=== PATIENT | male | born 1950 | race Two or more races ===

== ENCOUNTER 2022-01-05 17:51 | Inpatient (IN) | payer MEDICARE, OTHER ==
[~2022-01-05] VITALS: Ht 177.8 cm; Wt 81.2 kg
--- NOTE | 2022-01-05 18:15 | NUR ---
[id number], from home, c/o R shoulder pain s/p slipped and fall in the bathroom, possible dislocation 05/06 ps. PLACED ON BED, AAOX4.
--- NOTE | 2022-01-05 18:20 | NUR ---
CAFE COOK. AT BED SIDE
--- NOTE | 2022-01-05 18:35 | NUR ---
X-RAY TECH AT BED SIDE
--- NOTE | 2022-01-05 18:45 | NUR ---
SWAB FOR COVID19 SENT TO LAB
[2022-01-05 19:16] LABS: ALANINE AMINOTRANSFERASE 13 U/L (12-78); ALBUMIN 3.4 g/dL (3.4-5.0); ALKALINE PHOSPHATASE 58 U/L (46-116); ASPARTATE AMINOTRANSFERASE 25 U/L (15-37); BILIRUBIN,DIRECT 0.2 mg/dL (0.0-0.2); BILIRUBIN,TOTAL 0.6 mg/dL (0.2-1.0); CARBON DIOXIDE 28 mmol/L (21-32); CHLORIDE 95 mmol/L (98-107); CREATININE 5.4 mg/dL (0.6-1.3); GLUCOSE 177 mg/dL (74-106); POTASSIUM 3.9 mmol/L (3.5-5.1); SODIUM SERUM 134 mmol/L (136-145); TOTAL PROTEIN, SERUM 7.9 g/dL (6.4-8.2); UREA NITROGEN, BLOOD 54 mg/dL (7-18)
[2022-01-05 20:13] LABS: BASOPHILS # (AUTO) 0.1 K/uL (0.0-0.2); BASOPHILS % (AUTO) 0.4 % (0.0-2.0); EOSINOPHILS % (AUTO) 0.1 % (0.0-6.0); HEMATOCRIT 24 % (39-51); HEMOGLOBIN 8.1 g/dL (13.5-17.5); LYMPHOCYTES # (AUTO) 0.5 K/uL (0.8-4.8); LYMPHOCYTES % (AUTO) 2.4 % (20.0-44.0); MEAN CORPUSCULAR HGB CONC 33 g/dl (31.0-36.0); MEAN CORPUSCULAR VOLUME 92 fL (80-96); MONOCYTES # (AUTO) 6.7 K/uL (0.1-1.30); MONOCYTES % (AUTO) 30.4 % (2.0-12.0); NEUTROPHILS # (AUTO) 14.6 K/uL (1.8-8.9); NEUTROPHILS % (AUTO) 66.7 % (43.0-81.0); PLATELET COUNT (AUTO) 121 K/uL (150-450); RED BLOOD CELL COUNT(AUTO) 2.64 MIL/uL (4.5-6.0)
--- NOTE | 2022-01-05 20:25 | NUR ---
DR PALOMO BARLOW PER DR AGUIRRE.
[2022-01-05] MEDS ORDERED: ONDANSETRON HCL/PF 4 MG/2 ML VIAL IVP PRN (20:30)
[2022-01-05] MEDS ORDERED: MAG HYDROX/AL HYDROX/SIMETH 30 ML UDC PO PRN (20:30)
[2022-01-05] MEDS ORDERED: MAGNESIUM HYDROXIDE 30 ML UDC PO PRN (20:30)
[2022-01-05] MEDS ORDERED: hydrALAZINE HCL IV 20 MG VIAL IV PRN (20:30)
--- NOTE | 2022-01-05 20:59 | NUR ---
JENNIFFER GOSS. FR16 INSITU
[2022-01-05] MEDS ORDERED: HEPARIN SODIUM, PORCINE 5000 UNITS/1 ML VIAL SQ SCH (21:00)
[2022-01-05] MEDS ORDERED: ASPIRIN 325 MG TABLET PO ONE (21:00)
[2022-01-05 21:05] LABS: BAND % (MANUAL) 3 % (0.0-5.0); LYMPHOCYTES % (MANUAL) 12 % (16-48); MONOCYTES % (MANUAL) 9 % (0-11.0); NEUTROPHILS % (MANUAL) 76 (42-76)
[2022-01-05] MEDS ORDERED: ASPIRIN 325 MG TABLET ONE (21:06)
--- NOTE | 2022-01-05 21:14 | NUR ---
ECHO CARDIGRAM TECH AT BED SIDE
--- NOTE | 2022-01-05 21:28 | NUR ---
TELE 327-5
--- NOTE | 2022-01-05 21:32 | NUR ---
PAT[facility]
--- NOTE | 2022-01-05 21:33 | NUR ---
PT TAKEN TO CT VIA [facility]
--- NOTE | 2022-01-05 21:50 | NUR ---
UPDATED SON AARON [phone] REGARDING PT'S ADMISSION. AWAITTING CALL BACK FOR LIST OF PT'S HOME MEDS.
--- NOTE | 2022-01-05 21:53 | NUR ---
PT RETURNED TO ER BED [address]
[2022-01-05] MEDS ORDERED: CEFEPIME 1 GM in IV D5W 50 ML IV ONE (22:00)
[2022-01-05] MEDS ORDERED: VANCOMYCIN 1.5 GM in IV D5W 500ml IV ONE (22:00)
--- NOTE | 2022-01-05 22:01 | NUR ---
REPORT GIVEN TO EMMA GOLDBERG [phone] FOR SLEENA
--- NOTE | 2022-01-05 22:05 | NUR ---
RN NOTES: AROUND 2204 RECEIVED CALL FROM ER, SPOKE WITH DENIZ/RN, PATIENT WAS BROUGHT FROM HOME WITH HISTORY OF FALL THIS EVENING HE SLIPPED INSIDE THE BATHROOM AND SUSTAINED A RIGHT SHOULDER SHOULDER FRACTURE, ON ABAD CATH.MRSA SWAB DONE, RAPID(-), HAS LEFT FOOT AMPUTATION, DIABETIC, NO SURGERY PLAN AT THE MOMENT, OFFER PAIN MEDICATION.
[2022-01-05 22:10] VITALS: BP 102/61
--- NOTE | 2022-01-05 22:10 | NUR ---
RN NOTES: -ADMITTED FROM ER AT AROUND 2210, ACCOMPANIED BY 2 ER STAFF, ON MONITOR,A/OX2-3 WITH PERIODS OF FORGETFULNESS, CONVERSANT, UKRAINIAN SPEAKING ONLY, WITH THE HELP OF PARTH/EMMA LINOLEUM TILE LAYER, ORIENTED TO UNIT AND STAFF, IV CANNULA RFA G#22, ON ABAD CATH F-16/10ML DRAINING INTO SLIGHTLY CLOUDY URINE AT AROUND 30ML, HEMODIALYSIS SITE ON QUAN, (+) BRUIT, AND PALPATE(+) THRILL, PER PATIENT HE HAS COMPLETE VACCINATION:FLU,PNA AND COVID VACCINE, UNABLE TO RECALL THE DATE BUT HE CLAIMED HE HAVE THEM ALL.HE IS DIABETIC BUT NOT ON ANY INSULIN OR ORAL MEDS.STILL WITH PAIN ON THE RONNY UPON MOVEMENT, NO SIGN OF RESPIRATORY DISTRESS, NON LABORED BREATHING, ORIENTED TO UNIT AND STAFF,HE CLAIMED HE SLIPPED ON THE BATHROOM FLOOR WHILE WEARING SOCKS, HE FELL ON THE RIGHT SIDE. BODY ASSESSMENT: 1)OLD SURGICAL SITE: MID CHEST AREA 2)RIGHT SHOULDER SWELLING, NOTICED IT IS HIGHER THAN THE RIGHT SHOULDER WITH ARM SLING ON 3)ABRASION ON THE RIGHT HOGUE AREA 4)RIGHT BIG TOE-FUNGUS NAIL --PER PATIENT HE HAD DIALYSIS ON [facility], TO OBTAIN CONSENT RIGHT NOW UNABLE TO SIGN DUE TO HIS FRACTURE ON THE RIGHT SHOULDER. -HE RECEIVED ASPIRIN FROM ER, NO PAIN MEDICATION WAS GIVEN, HE WAS ALONE WHEN HE CAME IN, NO RELATIVES WITH HIM. -RETREADER IN PLACED-SINUS RHYTHM-80'S.
--- NOTE | 2022-01-05 22:20 | NUR ---
RN NOTES: F/U IN ER REGARDING PATIENT ADMISSION, PER MD ORDER FOR MS, PER ENDORSEMENT ITS TELE, SPOKE WITH CRISTIAN/RN TO FOLLOW DOCTORS ORDER, FOR MED SURG.
--- NOTE | 2022-01-05 22:55 | NUR ---
RN NOTES: CAME AND SEE THE PATIENT,SLING ON RIGHT UPPER ARM, HE ORDERED TO DO URINE TEST, HE WILL STARTED ON VANCO AMD MAXIPIME, ON PAIN MANAGEMENT, CAN GIVE MORPHINE, TO BE SEEN BY ORTHO AND EXPERIMENTAL ASSEMBLER IN THE MORNING,HE DISCUSSED POLST WITH THE HELP OF TRANSPORTATION DISPATCH MANAGER PARTH/RN, PATIENT WISHED TO BE DNR, DOCTOR WILL ADD SLIDING SCALE , WILL CONTINUE TO MONITOR.
[2022-01-05] MEDS ORDERED: VANCOMYCIN 1 GM VIAL ONE ×2 (23:04→23:08)
[2022-01-05] MEDS: MORPHINE SULFATE INJ 2 MG/ML DISP.SYRIN IV PRN (23:17)
--- NOTE | 2022-01-05 23:20 | NUR ---
RN NOTES: -AROUND 2301 CALLED PHARMACY AND VERIFIED ORDER FROM ER, PER GAYATRI CHANG TO PULL OUT 1 TIME DOSE OF MAXIPIME AND VANCO FROM THE PYXIS. -CN/RN NOTIFIED, PULLED OUT VANCO 1.5 GRAM AT 250 ML/HR STARTED -HEPARIN AND MORPHINE FOR PAIN GIVEN.
[2022-01-05] MEDS ORDERED: DEXTROSE 50%-WATER 50 ML DISP.SYRIN IV PRN (23:30)
[2022-01-06] VITALS (11 sets, daily range): BP systolic 99–142; BP diastolic 58–86
--- NOTE | 2022-01-06 00:30 | NUR ---
RN NOTES: AROUND 0025 RECEIVED CALL FROM LAB SPOKE WITH JOHN, PATIENT TROPONIN [phone] , 2ND TROPONIN LEVEL INCREASE TO 3167, HEPARIN 5,000 UNIT WAS GIVEN ORDERED FROM ER, DR. ELMORE NOTIFIED, ORDER TO PUT BACK PATIENT ON TELE MONITOR AND WAIT FOR ORDER FOR LOVENOX DOSE.
[2022-01-06] MEDS ORDERED: CEFEPIME 1 GM VIAL ONE (00:36)
--- NOTE | 2022-01-06 00:50 | NUR ---
EMMA NOTES: BLOOD SUGAR CHECKED-138 Addendum: 01/06/22 at 0122 by ASHLYN DAVILA RN ADDED NOTES: -ANTIBIOTIC ORDER FAXED AND DELIVERED BY PSYCHOMETRIST, 1ST DOSE OF MAXIPIME 1 GRAM IN 50 ML OF D5%W AT 100 ML/HR( ORDERED) GIVEN, RN/CN AWARE.
[2022-01-06] MEDS: BLOOD SUGAR DIAGNOSTIC 1 EACH STRIP VI SCH ×5 (00:58→22:05)
--- NOTE | 2022-01-06 01:30 | NUR ---
RN NOTES: -F/U IN THE PHARMACY SPOKE WITH MARIKA, TO VERIFY DOSE OF LOVENOX.SHE SAID 10-15 MIN THEY WILL RELEASE IN THE PYXIS.
--- NOTE | 2022-01-06 01:58 | NUR ---
RN NOTES: -LOVENOX 80 MG GIVEN ORDERED. -URINE SPECIMEN COLLECTED, READY FOR LABORER HOISTING, NOTIFIED LAB. Addendum: 01/06/22 at 0204 by ASHLYN DAVILA RN ADDED NOTES: SPOKE WITH TRINA/SECURITY TESTER, SPECIMEN TO BE LABORER HOISTING.
[2022-01-06] MEDS ORDERED: ENOXAPARIN SODIUM 80 MG/0.8 ML DISP.SYRIN SQ ONE (02:00)
[2022-01-06 02:25] LABS: BILIRUBIN,URINE NEGATIVE (NEGATIVE); COLOR,URINE YELLOW (YELLOW); LEUKOCYTE ESTERASE ,URINE MODERATE (NEGATIVE); NITRITE, URINE NEGATIVE (NEGATIVE); PH,URINE 7.5 (5.0-8.0); PROTEIN,URINE 100 mg/dl (NEGATIVE); UGLUCOSE NEGATIVE (NEGATIVE); UROBILINOGEN,URINE 0.2 EU/dL (0.2)
--- NOTE | 2022-01-06 05:57 | NUR ---
EMMA NOTES: F/U IN THE ;AB, MRSA SWAB NOT YET DONE, RN OBTAINED SPECIMEN ON BOTH NARES, SWAB P/U ORQUIDEA. Addendum: 01/06/22 at 0559 by ASHLYN DAVILA RN CORRECTION: SPECIMEN NOT YET SENT TO LAB, SPECIMEN P/U BY [id number].
--- NOTE | 2022-01-06 06:26 | NUR ---
RN NOTES: ABLE TO SLEEP AND REST, PAIN ONLY UPON MOVEMENT, BLOOD SUGAR CHECKED-93, NO INSULIN P.ER SCALE WILL CONTINUE TO MONITOR FOR SIGN OF HYPER AND HYPOGLYCEMIA, URINE OUTPUT ONLY 70 ML,
[2022-01-06 06:55] LABS: BASOPHILS # (AUTO) 0.1 K/uL (0.0-0.2); BASOPHILS % (AUTO) 0.2 % (0.0-2.0); LYMPHOCYTES # (AUTO) 1.2 K/uL (0.8-4.8); LYMPHOCYTES % (AUTO) 4.1 % (20.0-44.0); MEAN CORPUSCULAR HGB CONC 32 g/dl (31.0-36.0); MEAN CORPUSCULAR VOLUME 93 fL (80-96); MONOCYTES # (AUTO) 15.3 K/uL (0.1-1.30); MONOCYTES % (AUTO) 50.7 % (2.0-12.0); NEUTROPHILS # (AUTO) 13.5 K/uL (1.8-8.9); PLATELET COUNT (AUTO) 116 K/uL (150-450); RED BLOOD CELL COUNT(AUTO) 2.12 MIL/uL (4.5-6.0)
[2022-01-06 07:16] LABS: ALANINE AMINOTRANSFERASE 18 U/L (12-78); ALKALINE PHOSPHATASE 49 U/L (46-116); ASPARTATE AMINOTRANSFERASE 35 U/L (15-37); BILIRUBIN,TOTAL 0.6 mg/dL (0.2-1.0); CARBON DIOXIDE 28 mmol/L (21-32); CHLORIDE 97 mmol/L (98-107); CREATININE 5.8 mg/dL (0.6-1.3); GLUCOSE 105 mg/dL (74-106); SODIUM SERUM 135 mmol/L (136-145); UREA NITROGEN, BLOOD 62 mg/dL (7-18)
[2022-01-06 07:19] LABS: HEMATOCRIT 20 % (39-51)
[2022-01-06 07:20] LABS: WHITE BLOOD COUNT (AUTO) 30.1 K/uL (4.3-11.0)
[2022-01-06 07:21] LABS: HEMOGLOBIN 6.4 g/dL (13.5-17.5)
--- NOTE | 2022-01-06 07:22 | NUR ---
RN NOTES: -PATIENT ASLEEP ON AND OFF, KEEP ON O2 INHALATION, SINUS RHYTHM-80'S,NOTICED SOME DISCOLORATION ON THE RIGHT SHOULDER BECOMES PROMINENT, NO COMPLAINTS OF PAIN. -RECEIVED CALL FROM LAB SPOKE WITH SRIRAM, WBC=30.1 HG-6.4, NOTFIED PATIENT RECEIVED HEPARIN 5,000 UNIT AT 2319 AND LOVENOX 80MG AT 0158.ENDORSED TO RN IN THE MORNING SHIFT TO NOTIFY PMD FOR CONTINUITY OF CARE.
[2022-01-06] MEDS ORDERED: VANCOMYCIN POST DIALYSIS 500MG IV PRN ×2 (07:30)
[2022-01-06] MEDS ORDERED: ATOR40TA PO (07:51)
[2022-01-06] MEDS ORDERED: SEVE800T28 PO (07:51)
[2022-01-06] MEDS ORDERED: LISI2.5T2 PO (07:51)
[2022-01-06] MEDS ORDERED: CLOP75TA15 PO (07:51)
[2022-01-06] MEDS ORDERED: CARV3.122 PO (07:51)
[2022-01-06 08:07] LABS: BACTERIA,URINE Many /HPF (None Seen); RBC,URINE 81-100 /HPF (0-2); SQUAMOUS EPITHELIAL CELL,UR Few /HPF (None Seen); WBC,URINE 51-80 /HPF (0-3)
--- NOTE | 2022-01-06 08:07 | NUR ---
RN OPENING NOTE PATIENT RECEIVED IN BED, AO X 2-3, ABLE TO RESPONDS ALL STIMULI. IN NO ACUTE DISTRESS NOTED. RESPIRATORY EVEN AND UNLABORED ON OXYGEN AT 2Ls VIA NC. SKIN IS WARM TO TOUCH, KEEP CLEAN/DRY. KEPT ELEVATED HOB FOR ENSURE AIRWAY AND ASPIRATION PRECAUTION, ALSO LOWEST POSITION OF THE BED, S/R UP X 3, BED ALARM IS ON AT ALL THE TIMES. ALL SAFETY PRECAUTION APPLIED. CALL LIGHT WITHIN REACH, WILL CONTINUE TO MONITOR.
--- NOTE | 2022-01-06 09:00 | NUR ---
NOTIFIED MD TROPONIN LEVEL 3551, NNO AT THIS TIME.
--- NOTE | 2022-01-06 09:00 | NUR ---
PATIENT NOTICED HGB LEVEL 6.4 THIS MORNING. NEW ORDER BLOOD TRANSFUSION X ONE UNIT, ALSO PATIENT RECEIVED ORDER HD TODAY ANS NEPHRO CONSULT/DR. YARBROUGH DUE TO MISSED HD YESTERDAY. CONSENT SIGN OBTAINED BY SON/AARON RAI OVER THE PHONE WITH X 2 RN WITNESSES. WILL CONTINUE TO MONITOR.
[2022-01-06 09:52] LABS: LYMPHOCYTES % (MANUAL) 20 % (16-48); MONOCYTES % (MANUAL) 7 % (0-11.0); NEUTROPHILS % (MANUAL) 73 (42-76)
[2022-01-06 12:05] LABS: HEMOGLOBIN 6.5 g/dL (13.5-17.5)
--- NOTE | 2022-01-06 12:10 | NUR ---
Patient start blood transfusion due to hgb level 6.4 will hold lovenox.
--- NOTE | 2022-01-06 14:05 | NUR ---
PATIENT S/P BLOOD TRANSFUSION BY HD, IN NO ACUTE DISTRESS OBSERVED. SKIN IS WARM TO TOUCH, NO NOTED FEVER OR SKIN RASH. CALL LIGHT WITHIN REACH, WILL CONTINUE TO MONITOR.
[2022-01-06] MEDS: MORPHINE SULFATE INJ 2 MG/ML DISP.SYRIN IV PRN ×2 (18:26→23:16)
--- NOTE | 2022-01-06 19:47 | NUR ---
PAPER CORE MACHINE OPERATOR OPENING NOTE RECEIVED PT IN BED. A/O X 2-3, RESPONDS TO STIMULI. PT ON 2LPM VIA NC. NO SOB OR S/S OF RESPIRATORY DISTRESS. BREATHING EVEN AND UNLABORED. ON EXTERNAL SENIOR QUALITY METHODS SPECIALIST READING SR 82 BPM. IV ACCESS RFA 20 GAUGE, INTACT AND PATENT. ABAD CATH IN PLACE DRAINING CLEAR YELLOW URINE. SAFETY PRECAUTIONS IN PLACE. BED IN LOWEST LOCKED POSITION, HOB ELEVATED, SIDE RAILS UP X3, AND CALL LIGHT AND TABLE WITHIN REACH. ALL NEEDS MET AT THIS TIME.
[2022-01-06] MEDS: CEFEPIME 1 GM in IV D5W 50 ML IV SCH (20:04)
[2022-01-06 20:21] LABS: HEMOGLOBIN 8.1 g/dL (13.5-17.5)
[2022-01-06] MEDS ORDERED: ENOXAPARIN SODIUM 80 MG/0.8 ML DISP.SYRIN SQ SCH (21:00)
[2022-01-07 05:15] VITALS: BP 128/72
[2022-01-07] MEDS: BLOOD SUGAR DIAGNOSTIC 1 EACH STRIP VI SCH ×4 (06:30→21:23)
[2022-01-07 06:36] LABS: BASOPHILS # (AUTO) 0.1 K/uL (0.0-0.2); BASOPHILS % (AUTO) 0.2 % (0.0-2.0); HEMATOCRIT 22 % (39-51); HEMOGLOBIN 7.2 g/dL (13.5-17.5); LYMPHOCYTES # (AUTO) 1.2 K/uL (0.8-4.8); LYMPHOCYTES % (AUTO) 3.6 % (20.0-44.0); MEAN CORPUSCULAR HGB CONC 33 g/dl (31.0-36.0); MEAN CORPUSCULAR VOLUME 93 fL (80-96); MONOCYTES # (AUTO) 15.7 K/uL (0.1-1.30); MONOCYTES % (AUTO) 48.5 % (2.0-12.0); NEUTROPHILS # (AUTO) 15.4 K/uL (1.8-8.9); NEUTROPHILS % (AUTO) 47.7 % (43.0-81.0); PLATELET COUNT (AUTO) 116 K/uL (150-450); RED BLOOD CELL COUNT(AUTO) 2.32 MIL/uL (4.5-6.0)
--- NOTE | 2022-01-07 06:36 | NUR ---
CRACKLING PRESS OPERATOR CLOSING NOTE PT AWAKE IN BED. A/O X 2-3, RESPONDS TO STIMULI. PT ON 2LPM VIA NC. NO SOB OR S/S OF RESPIRATORY DISTRESS. BREATHING EVEN AND UNLABORED. ON EXTERNAL FACILITIES OFFICER READING SR 97 BPM. IV ACCESS RFA 20 GAUGE, INTACT AND PATENT. ABAD CATH IN PLACE DRAINING CLEAR YELLOW URINE, 200 CC DRAINED THIS SHIFT. ALL DUE MEDS GIVEN ORDERED. SAFETY PRECAUTIONS IN PLACE AT ALL TIMES. BED IN LOWEST LOCKED POSITION, HOB ELEVATED, SIDE RAILS UP X3, AND CALL LIGHT AND TABLE WITHIN REACH. ALL NEEDS MET AT THIS TIME AND WILL ENDORSE TO ONCOMING NURSE FOR SELENA.
[2022-01-07 07:00] LABS: ALANINE AMINOTRANSFERASE 101 U/L (12-78); ALBUMIN 3.1 g/dL (3.4-5.0); ALKALINE PHOSPHATASE 51 U/L (46-116); ASPARTATE AMINOTRANSFERASE 100 U/L (15-37); BILIRUBIN,TOTAL 0.8 mg/dL (0.2-1.0); CALCIUM, SERUM 8.3 mg/dL (8.5-10.1); CARBON DIOXIDE 25 mmol/L (21-32); CHLORIDE 97 mmol/L (98-107); CREATININE 4.9 mg/dL (0.6-1.3); GLUCOSE 120 mg/dL (74-106); MAGNESIUM 2.1 mg/dL (1.8-2.4); PHOSPHORUS 5.3 mg/dL (2.5-4.9); POTASSIUM 4.4 mmol/L (3.5-5.1); SODIUM SERUM 134 mmol/L (136-145); TOTAL PROTEIN, SERUM 7.3 g/dL (6.4-8.2); UREA NITROGEN, BLOOD 53 mg/dL (7-18)
[2022-01-07 07:49] LABS: WHITE BLOOD COUNT (AUTO) 32.4 K/uL (4.3-11.0)
--- NOTE | 2022-01-07 07:51 | NUR ---
RN OPENING NOTE PATIENT AWAKE IN BED RESTING, A/O X2-3. NO S/S OF PAIN NOTED AT THIS TIME. ON ROOM AIR, NO DISTRESS OR SHORTNESS OF BREATH NOTED. IV ACCESS L HAND #22G, INTACT, PATENT AND FLUSHING WELL. PATIENT WITH EXTERNAL QUALITY CONTROL ENGINEER WITH CURRENT READING OF SR AND HR OF 97, NO CARDIAC DISTRESS NOTED. PATIENT HAVE A ABAD CATHETER, IN PLACE AND DRAINING WELL. FALL AND SAFETY MEASURES IN PLACE, BED ALARM ON BED IN LOW AND LOCK POSITION, CALL LIGHT AND TABLE WITHIN EASY REACH, SIDE RAILS UP X2. WILL CONTINUE TO MONITOR.
--- NOTE | 2022-01-07 09:39 | NUR ---
PATIENT ON 2 L NC WITH SAT 94%. PATIENT IS RESTLESS AND NO DISTRESS NOTED. Addendum: 01/07/22 at 0940 by SHAMIKA ALBRIGHT RT Amended: Links added.
[2022-01-07] MEDS ORDERED: HEPARIN INFUSION/D5W 500 ML IV PRN (10:00)
[2022-01-07] MEDS: CARVEDILOL 3.125 MG TABLET PO SCH ×2 (10:31→17:12)
[2022-01-07 10:36] LABS: BAND % (MANUAL) 2 % (0.0-5.0); LYMPHOCYTES % (MANUAL) 2 % (16-48); METAMYELOCYTES % 1 % (0-0); MONOCYTES % (MANUAL) 39 % (0-11.0); MYELOCYTES % 1 % (0-0); NEUTROPHILS % (MANUAL) 55 (42-76)
[2022-01-07 10:42] LABS: HEMOGLOBIN 7.3 g/dL (13.5-17.5)
[2022-01-07 11:26] LABS: IRON, SERUM 78 ug/dl (50-175); TOTAL IRON BINDING CAPACITY 154 ug/dl (250-450)
[2022-01-07 12:32] LABS: FERRITIN 10178 ng/mL (8-388)
[2022-01-07] MEDS: SEVELAMER CARBONATE 800 MG TABLET PO SCH ×2 (12:34→17:11)
[2022-01-07] MEDS: MORPHINE SULFATE INJ 2 MG/ML DISP.SYRIN IV PRN (12:39)
--- NOTE | 2022-01-07 18:56 | NUR ---
RN CLOSING NOTE PATIENT AWAKE IN BED RESTING, A/O X2-3. NO S/S OF PAIN NOTED AT THIS TIME. ON ROOM AIR, NO DISTRESS OR SHORTNESS OF BREATH NOTED. IV ACCESS L HAND #22G, INTACT, PATENT AND FLUSHING WELL. PATIENT WITH EXTERNAL ARTIFICIAL FLY TIER WITH CURRENT READING OF SR AND HR OF 86, NO CARDIAC DISTRESS NOTED. PATIENT HAVE A ABAD CATHETER, IN PLACE AND DRAINING WELL, OUTPUT OF 600 ML. FALL AND SAFETY MEASURES IN PLACE, BED ALARM ON BED IN LOW AND LOCK POSITION, CALL LIGHT AND TABLE WITHIN EASY REACH, SIDE RAILS UP X2. WILL ENDORSE TO VASCULAR TECH.
--- NOTE | 2022-01-07 19:00 | NUR ---
RN opening notes Received Pt from morning nurse. Pt is resting in bed comfortably. Pt is alert and oriented X2-3. On room air. No SOB. No S/S of distress noted. R arm sling noted. IV site at RFA# 20 is clean, intact and SL. Tele monitor showed SR hr at 86. Gardiner cath is intact and draining yellow urine. Safety precautions is maintained. Bed at low position, brakes locked, side rails upX3, hob elevated and call light is within reach. Will continue to monitor.
[2022-01-07 19:51] LABS: HEMOGLOBIN 7.2 g/dL (13.5-17.5)
[2022-01-07 20:00] VITALS: BP 118/57
[2022-01-07] MEDS: CEFEPIME 1 GM in IV D5W 50 ML IV SCH (20:52)
[2022-01-07] MEDS: *INSULIN REGULAR(HUMULIN R)HUM 100 UNIT/ML VIAL SQ PRN (21:23)
--- NOTE | 2022-01-07 21:24 | NUR ---
RN notes Pt BS 139. Pt refused coverage. Explained risks and benefits. Pt keep refusing. Will continue to monitor.
[2022-01-08] VITALS: BP 104/64
--- NOTE | 2022-01-08 01:53 | NUR ---
JUICE MIXER NOTES RECEIVED REPORT FROM EMMA LYON; WILL CONT PLAN OF CARE
[2022-01-08 02:21] LABS: HEMOGLOBIN 7.8 g/dL (13.5-17.5)
[2022-01-08 04:00] VITALS: BP 124/43
[2022-01-08 05:56] LABS: BASOPHILS # (AUTO) 0.1 K/uL (0.0-0.2); BASOPHILS % (AUTO) 0.3 % (0.0-2.0); EOSINOPHILS % (AUTO) 0.1 % (0.0-6.0); HEMATOCRIT 23 % (39-51); HEMOGLOBIN 7.4 g/dL (13.5-17.5); LYMPHOCYTES # (AUTO) 1.2 K/uL (0.8-4.8); LYMPHOCYTES % (AUTO) 3.4 % (20.0-44.0); MEAN CORPUSCULAR HGB CONC 33 g/dl (31.0-36.0); MEAN CORPUSCULAR VOLUME 95 fL (80-96); MONOCYTES # (AUTO) 18.1 K/uL (0.1-1.30); MONOCYTES % (AUTO) 50.9 % (2.0-12.0); NEUTROPHILS # (AUTO) 16.1 K/uL (1.8-8.9); NEUTROPHILS % (AUTO) 45.3 % (43.0-81.0); PLATELET COUNT (AUTO) 146 K/uL (150-450); RED BLOOD CELL COUNT(AUTO) 2.38 MIL/uL (4.5-6.0)
[2022-01-08 06:24] LABS: WHITE BLOOD COUNT (AUTO) 35.5 K/uL (4.3-11.0)
[2022-01-08 06:36] LABS: ALANINE AMINOTRANSFERASE 143 U/L (12-78); ALBUMIN 2.9 g/dL (3.4-5.0); ALKALINE PHOSPHATASE 52 U/L (46-116); ASPARTATE AMINOTRANSFERASE 77 U/L (15-37); BILIRUBIN,TOTAL 0.6 mg/dL (0.2-1.0); CALCIUM, SERUM 8.2 mg/dL (8.5-10.1); CARBON DIOXIDE 28 mmol/L (21-32); CHLORIDE 95 mmol/L (98-107); CREATININE 5.9 mg/dL (0.6-1.3); GLUCOSE 107 mg/dL (74-106); MAGNESIUM 2.1 mg/dL (1.8-2.4); PHOSPHORUS 6.8 mg/dL (2.5-4.9); POTASSIUM 4.5 mmol/L (3.5-5.1); SODIUM SERUM 132 mmol/L (136-145); TOTAL PROTEIN, SERUM 7.2 g/dL (6.4-8.2); UREA NITROGEN, BLOOD 71 mg/dL (7-18)
--- NOTE | 2022-01-08 06:38 | NUR ---
TRANSACTIONAL PARALEGAL NOTE CRITICAL LAB, WBC 35.5, MADE AWARE, AWAITING ORDERS; CHARGE NURSE AWARE
[2022-01-08] MEDS: BLOOD SUGAR DIAGNOSTIC 1 EACH STRIP VI SCH ×4 (06:48→21:44)
--- NOTE | 2022-01-08 06:55 | NUR ---
SPIRAL MACHINE OPERATOR CLOSING NOTE PATIENT RESTING IN BED COMFORTABLY; A/OX1-2, SOMETIMES CONFUSED, CZECH SPEAKER. BREATHING EVEN AND UNLABORED; NO SOB NOTED, TOLERATING ROOM AIR WELL; NO S/S OF DISTRESS NOTED; TELE MONITOR READS SINUS RHYTHM 90S; RFA #20 INTACT AND PATENT, QUAN HD CATH PRESENT, WILL RECEIVED HD TODAY; ALL NEEDS RENDERED; SAFETY PRECAUTIONS IMPLEMENTED; BED LOCKED IN LOW POSITION; SIDE RAILX2, CALL LIGHT WITHIN REACH; WILL ENDORSE SELENA TO ONCOMING SHIFT
--- NOTE | 2022-01-08 07:45 | NUR ---
RN OPENING NOTE PATIENT AWAKE IN BED RESTING, A/O X2-3. NO S/S OF PAIN NOTED AT THIS TIME. ON ROOM AIR, NO DISTRESS OR SHORTNESS OF BREATH NOTED. IV ACCESS QUAN #20G, INTACT, PATENT AND FLUSHING WELL. PATIENT WITH EXTERNAL MACHINED PARTS METAL SPRAYER WITH CURRENT READING OF SR AND HR OF 90, NO CARDIAC DISTRESS NOTED. PATIENT HAVE A ABAD CATHETER, IN PLACE AND DRAINING WELL. FALL AND SAFETY MEASURES IN PLACE, BED ALARM ON BED IN LOW AND LOCK POSITION, CALL LIGHT AND TABLE WITHIN EASY REACH, SIDE RAILS UP X2. WILL CONTINUE TO MONITOR.
--- NOTE | 2022-01-08 07:50 | NUR ---
RN NOTE LAB CALLED WITH CRITICAL LAB, TROPONIN 2991. DOCTOR MARTINEZ WAS INFORMED.
[2022-01-08 08:02] LABS: BAND % (MANUAL) 1 % (0.0-5.0); LYMPHOCYTES % (MANUAL) 4 % (16-48); MONOCYTES % (MANUAL) 42 % (0-11.0); NEUTROPHILS % (MANUAL) 53 (42-76)
[2022-01-08] MEDS: SEVELAMER CARBONATE 800 MG TABLET PO SCH ×3 (08:47→17:04)
[2022-01-08] MEDS: CARVEDILOL 3.125 MG TABLET PO SCH ×2 (08:47→17:04)
[2022-01-08 12:59] LABS: THYROID STIMULATING HORMONE 4.423 uIU/mL (0.358-3.74)
[2022-01-08 15:13] LABS: D-DIMER 3.15 mg/L(FEU (0.17-0.50)
--- NOTE | 2022-01-08 19:51 | NUR ---
RN CLOSING NOTE PATIENT AWAKE IN BED RESTING, A/O X2-3. NO S/S OF PAIN NOTED AT THIS TIME. ON ROOM AIR, NO DISTRESS OR SHORTNESS OF BREATH NOTED. IV ACCESS QUAN #20G, INTACT, PATENT AND FLUSHING WELL. PATIENT WITH EXTERNAL CASTING WHEEL OPERATOR WITH CURRENT READING OF SR AND HR OF 73, NO CARDIAC DISTRESS NOTED. PATIENT HAVE A ABAD CATHETER, IN PLACE AND DRAINING WELL. FALL AND SAFETY MEASURES IN PLACE, BED ALARM ON BED IN LOW AND LOCK POSITION, CALL LIGHT AND TABLE WITHIN EASY REACH, SIDE RAILS UP X2. WILL ENDORSE TO REVENUE INVESTIGATOR.
[2022-01-08 20:00] LABS: HEMOGLOBIN 7.3 g/dL (13.5-17.5)
[2022-01-08 22:39] VITALS: BP 93/51
[2022-01-09] MEDS: MEROPENEM 500 MG in IV NS 0.9% 50 ML IV SCH ×3 (01:14→21:23)
[2022-01-09 02:11] LABS: HEMOGLOBIN 7.9 g/dL (13.5-17.5)
--- NOTE | 2022-01-09 06:47 | NUR ---
DIRECT RESPONSE CONSULTANT CLOSING NOTE PT REMAINS IN BED, A&O X2, CITIZEN OF [place] AND [place]-SPEAKING, SLIGHTLY CONFUSED. PT ATTACHED TO EXTERNAL MONITOR, SR, HR 69. ON RA WITH NO S/S OF RESP DISTRESS, NO SOB, NON-LABORED AND EQUAL BREATHING. SLING REMAINS IN PLACE ON RIGHT ARM. RFA 20G IV ACCESS INTACT AND PATENT; INFUSED MEROPENEM EARLIER IN MORNING. ABAD INTACT AND PATENT; DRAINING CLEAR AND YELLOW URINE. ALL DUE MEDS ADMINISTERED DURING SHIFT. WILL ENDORSE TO DAYSHIFT NURSE TO CONTINUE CARE.
[2022-01-09 06:54] LABS: BASOPHILS # (AUTO) 0.1 K/uL (0.0-0.2); BASOPHILS % (AUTO) 0.5 % (0.0-2.0); EOSINOPHILS % (AUTO) 0.3 % (0.0-6.0); HEMATOCRIT 21 % (39-51); HEMOGLOBIN 7.1 g/dL (13.5-17.5); LYMPHOCYTES # (AUTO) 1.3 K/uL (0.8-4.8); LYMPHOCYTES % (AUTO) 4.1 % (20.0-44.0); MEAN CORPUSCULAR HGB CONC 34 g/dl (31.0-36.0); MEAN CORPUSCULAR VOLUME 94 fL (80-96); MONOCYTES # (AUTO) 13.9 K/uL (0.1-1.30); MONOCYTES % (AUTO) 44.7 % (2.0-12.0); NEUTROPHILS # (AUTO) 15.7 K/uL (1.8-8.9); NEUTROPHILS % (AUTO) 50.4 % (43.0-81.0); PLATELET COUNT (AUTO) 178 K/uL (150-450); RED BLOOD CELL COUNT(AUTO) 2.26 MIL/uL (4.5-6.0)
[2022-01-09 07:04] LABS: CALCIUM, SERUM 8.3 mg/dL (8.5-10.1); CARBON DIOXIDE 28 mmol/L (21-32); CHLORIDE 99 mmol/L (98-107); CREATININE 4.5 mg/dL (0.6-1.3); GLUCOSE 92 mg/dL (74-106); POTASSIUM 3.8 mmol/L (3.5-5.1); SODIUM SERUM 137 mmol/L (136-145); UREA NITROGEN, BLOOD 51 mg/dL (7-18)
--- NOTE | 2022-01-09 07:18 | NUR ---
NOTCH MACHINE OPERATOR OPENING NOTE PATIENT AWAKE IN BED PATIENT IS A/O X2-3. NO S/S OF PAIN NOTED AT THIS TIME. ON ROOM AIR, NO DISTRESS OR SHORTNESS OF BREATH NOTED. NOTED LEFT SHOULDER SWELLING RELATED TO FRACTURE, NO INTERVENTION AT THIS TIME. WITH IV ACCESS ON THE RIGHT FORE ARM, PATENT AND INTACT. WITH EXTERNAL BEAUTICIAN APPRENTICE WITH CURRENT READING OF SR 80'S, NO CARDIAC DISTRESS NOTED. PATIENT HAVE A ABAD CATHETER, IN PLACE AND DRAINING WELL. WITHRIGHT AV FISTULA POSITIVE FOR BRUIT AND THRILL. FALL AND SAFETY MEASURES IN PLACE, BED ALARM ON BED IN LOW AND LOCK POSITION, CALL LIGHT AND TABLE WITHIN EASY REACH, SIDE RAILS UP X2. WILL CONTINUE TO MONITOR.
[2022-01-09] MEDS: BLOOD SUGAR DIAGNOSTIC 1 EACH STRIP VI SCH ×4 (07:48→22:00)
[2022-01-09 07:57] LABS: WHITE BLOOD COUNT (AUTO) 31.2 K/uL (4.3-11.0)
[2022-01-09 08:02] LABS: BAND % (MANUAL) 3 % (0.0-5.0); LYMPHOCYTES % (MANUAL) 10 % (16-48); MONOCYTES % (MANUAL) 39 % (0-11.0); NEUTROPHILS % (MANUAL) 48 (42-76)
[2022-01-09] MEDS: CARVEDILOL 3.125 MG TABLET PO SCH ×2 (09:00→17:00)
[2022-01-09 09:07] LABS: IMMUNOGLOBULIN A, SERUM 440 mg/dL (61-437); IMMUNOGLOBULIN G, SERUM 1548 mg/dL (603-1613); IMMUNOGLOBULIN M, SERUM 143 mg/dL (15-143)
[2022-01-09] MEDS: SEVELAMER CARBONATE 800 MG TABLET PO SCH ×3 (09:32→17:15)
[2022-01-09 10:39] LABS: HEMOGLOBIN 7.1 g/dL (13.5-17.5)
[2022-01-09 11:07] LABS: *ANA ANTI-CENTROMERE B AB <0.2 AI (0.0-0.9); *ANA ANTI-DNA(DS) AB, QN 1 IU/mL (0-9); *ANA ANTI-JO-1 <0.2 AI (0.0-0.9); *ANA ANTICHROMATIN ANTIBODY <0.2 AI (0.0-0.9); *ANA RNP ANTIBODIES <0.2 AI (0.0-0.9); *ANA SJOGREN'S ANTI-SS-A <0.2 AI (0.0-0.9); *ANA SJOGREN'S ANTI-SS-B <0.2 AI (0.0-0.9); *ANAANTI-SCLERODERMA-70 AB <0.2 AI (0.0-0.9); *ANASMITH AB <0.2 AI (0.0-0.9)
[2022-01-09 13:06] LABS: *SPE A/G RATIO 0.9 (0.7-1.7); *SPE ALPHA-1-GLOBULIN 0.3 g/dL (0.0-0.4); *SPE ALPHA-2-GLOBULIN 0.7 g/dL (0.4-1.0); *SPE BETA GLOBULIN 0.7 g/dL (0.7-1.3); *SPE M-SPIKE Not Observed g/dL (Not Observed)
[2022-01-09] MEDS: ACETAMINOPHEN 325 MG TABLET PO PRN (17:47)
--- NOTE | 2022-01-09 19:15 | NUR ---
CHUCK WAGON COOK CLOSING NOTE PATIENT AWAKE IN BED PATIENT IS A/O X2-3. NO S/S OF PAIN NOTED AT THIS TIME. ON ROOM AIR, NO DISTRESS OR SHORTNESS OF BREATH NOTED. NOTED LEFT SHOULDER SWELLING RELATED TO FRACTURE, NO INTERVENTION AT THIS TIME. WITH IV ACCESS ON THE RIGHT FORE ARM, PATENT AND INTACT. WITH EXTERNAL COMMERCIAL LOAN MANAGER WITH CURRENT READING OF SR 80'S, NO CARDIAC DISTRESS NOTED. PATIENT HAVE A ABAD CATHETER, IN PLACE AND DRAINING WELL. WITHRIGHT AV FISTULA POSITIVE FOR BRUIT AND THRILL. FALL AND SAFETY MEASURES IN PLACE, BED ALARM ON BED IN LOW AND LOCK POSITION, CALL LIGHT AND TABLE WITHIN EASY REACH, SIDE RAILS UP X2. WILL CONTINUE TO MONITOR. ENDORSED TO NEXT SHIFT FOR CONTINUITY OF CARE.
--- NOTE | 2022-01-09 19:30 | NUR ---
RN OPENING NOTES: RECEIVED PATIENT AWAKE IN BED, BED IN LOW POSITION CALL LIGHTS WITHIN REACH, NO COMPLAIN OF PAIN AND DISCOMFORT AT THIS TIME, ON O2 INHALATION AT 2LPM SATURATING WELL, PATIENT KEPT CLEAN AND DRY ALL NEEDS MET WILL CONTINUE TO MONITOR.
[2022-01-09 20:01] LABS: HEMOGLOBIN 7.6 g/dL (13.5-17.5)
--- NOTE | 2022-01-09 22:30 | NUR ---
rn notes: bs-117-no insulin given per sliding scale (out of parameter
[2022-01-10] VITALS (9 sets, daily range): BP systolic 83–116; BP diastolic 44–66
[2022-01-10 03:33] LABS: HEMOGLOBIN 7.3 g/dL (13.5-17.5)
[2022-01-10 06:33] LABS: BASOPHILS # (AUTO) 0.1 K/uL (0.0-0.2); BASOPHILS % (AUTO) 0.2 % (0.0-2.0); EOSINOPHILS % (AUTO) 1.2 % (0.0-6.0); HEMATOCRIT 21 % (39-51); LYMPHOCYTES # (AUTO) 1.8 K/uL (0.8-4.8); LYMPHOCYTES % (AUTO) 5.6 % (20.0-44.0); MEAN CORPUSCULAR HGB CONC 33 g/dl (31.0-36.0); MEAN CORPUSCULAR VOLUME 93 fL (80-96); MONOCYTES # (AUTO) 12.4 K/uL (0.1-1.30); MONOCYTES % (AUTO) 39.8 % (2.0-12.0); NEUTROPHILS # (AUTO) 16.6 K/uL (1.8-8.9); NEUTROPHILS % (AUTO) 53.2 % (43.0-81.0); PLATELET COUNT (AUTO) 230 K/uL (150-450); RED BLOOD CELL COUNT(AUTO) 2.23 MIL/uL (4.5-6.0)
--- NOTE | 2022-01-10 07:00 | NUR ---
RN CLOSING NOTES: PATIENT AWAKE IN BED, BED IN LOW POSITION CALL LIGHTS WITHIN REACH, NO COMPLAIN OF PAIN AND DISCOMFORT AT THIS TIME,ON 02 INHALATION SATURATING WELL, PATIENT WITH ONGOING DIALYSIS, PATIENT KEPT CLEAN AND DRY ALL NEEDS MET ENDORSE TO INCOMING SHIFT.
[2022-01-10 07:17] LABS: CALCIUM, SERUM 8.1 mg/dL (8.5-10.1); CARBON DIOXIDE 26 mmol/L (21-32); CHLORIDE 97 mmol/L (98-107); CREATININE 5.2 mg/dL (0.6-1.3); POTASSIUM 4.1 mmol/L (3.5-5.1); SODIUM SERUM 135 mmol/L (136-145); UREA NITROGEN, BLOOD 58 mg/dL (7-18)
[2022-01-10] MEDS: BLOOD SUGAR DIAGNOSTIC 1 EACH STRIP VI SCH ×4 (07:30→22:00)
[2022-01-10 07:35] LABS: HEMOGLOBIN 6.9 g/dL (13.5-17.5); WHITE BLOOD COUNT (AUTO) 31.2 K/uL (4.3-11.0)
--- NOTE | 2022-01-10 07:40 | NUR ---
rn NOTES: BS-94 OUT OF PARAMETER PATIENT ON SCHEDULE DIALYSIS
[2022-01-10] MEDS: SEVELAMER CARBONATE 800 MG TABLET PO SCH ×3 (10:00→17:37)
[2022-01-10] MEDS: MEROPENEM 500 MG in IV NS 0.9% 50 ML IV SCH ×2 (10:16→21:11)
[2022-01-10 10:47] LABS: HEMOGLOBIN 7.4 g/dL (13.5-17.5)
[2022-01-10 11:20] LABS: LYMPHOCYTES % (MANUAL) 5 % (16-48); METAMYELOCYTES % 2 % (0-0); MONOCYTES % (MANUAL) 30 % (0-11.0); MYELOCYTES % 3 % (0-0); NEUTROPHILS % (MANUAL) 60 (42-76)
[2022-01-10] MEDS: DOCUSATE SODIUM 100 MG CAPSULE PO SCH (13:04)
[2022-01-10] MEDS: ACETAMINOPHEN 325 MG TABLET PO PRN (16:24)
--- NOTE | 2022-01-10 19:00 | NUR ---
MS RN NOTE COMPLETED BLOOD TRANSFUSION, IN STABLE CONDITION. COMFORT MEASURES PROVIDED. ENDORSED PATIENT ACCORDINGLY. IN STABLE CONDITION. NOT IN DISTRESS. ENDORSED ACCORDINGLY.
[2022-01-10 20:13] LABS: HEMOGLOBIN 8.6 g/dL (13.5-17.5)
--- NOTE | 2022-01-10 20:16 | NUR ---
MS RN OPENING NOTES: RECEIVED PATIENT WAWAKE IN BED, BE DIN LOW POSITION, CALL LIGHTS WITHIN REACH, NO COMPLAIN OF PAIN AND DISCOMFORT AT THIS TIME, ON ROOM AIR SATURATING WELL, PATIENT WITH QUAN HD DIALYSIS DONE TODAY WITH 500ML OUTPUT, WITH RIGHT SHOULDER FRACTURE ON SLING PATIENT KEPT CLEAN AND DRY ALL NEEDS MET WILL CONTINUE TO MONITOR.
--- NOTE | 2022-01-10 22:24 | NUR ---
RN NOTES: BS-116- NO INSULIN GIVEN PER SLIDING SCALE
[2022-01-11 06:35] LABS: BASOPHILS # (AUTO) 0.1 K/uL (0.0-0.2); BASOPHILS % (AUTO) 0.2 % (0.0-2.0); EOSINOPHILS % (AUTO) 0.2 % (0.0-6.0); HEMATOCRIT 24 % (39-51); HEMOGLOBIN 8.1 g/dL (13.5-17.5); LYMPHOCYTES # (AUTO) 1.6 K/uL (0.8-4.8); LYMPHOCYTES % (AUTO) 4.2 % (20.0-44.0); MEAN CORPUSCULAR HGB CONC 33 g/dl (31.0-36.0); MEAN CORPUSCULAR VOLUME 94 fL (80-96); MONOCYTES # (AUTO) 15.5 K/uL (0.1-1.30); MONOCYTES % (AUTO) 40.1 % (2.0-12.0); NEUTROPHILS # (AUTO) 21.4 K/uL (1.8-8.9); NEUTROPHILS % (AUTO) 55.3 % (43.0-81.0); PLATELET COUNT (AUTO) 249 K/uL (150-450)
[2022-01-11] MEDS: BLOOD SUGAR DIAGNOSTIC 1 EACH STRIP VI SCH ×4 (06:36→21:18)
--- NOTE | 2022-01-11 06:36 | NUR ---
RN NOTES: BS-93 NO INSULIN GIVEN PER SLIDING SCALE
[2022-01-11 06:55] LABS: WHITE BLOOD COUNT (AUTO) 38.7 K/uL (4.3-11.0)
--- NOTE | 2022-01-11 07:00 | NUR ---
MS RN OPENING NOTES PATIENT LAYING IN BED, A/O X 2, ABLE TO MAKE NEEDS KNOWN. TOLERATING WELL ON 2 LPM O2 VIA CANNULA WITH NO S/S RESPIRATORY DISTRESS. NO COMPLAINTS OF PAIN OR DISCOMFORT AT THIS TIME. SLING IN PLACE ON RIGHT ARM. R FA # 20 G SL CLEAN, INTACT, AND FLUSHING WELL. SAFETY MEASURES IN PLACE: BED IN LOWEST LOCKED POSITION, SIDE RAILS UP X 2, CALL LIGHT WITHIN REACH. WILL CONTINUE TO MONITOR.
--- NOTE | 2022-01-11 07:00 | NUR ---
RN CLOSING NOTES: PATIENT SLEEP IN BED COMFORTABLY AROUSABLE TO VERBAL STIMULI, BED IN LOW POSITION CALL LIGHTS WITHIN REACH, NO COMPLAIN OF PAIN AND DISCOMFORT AT THIS TIME. ON O2 INHALATION AT 2LPM SATURATING WELL, PATIENT KEPT CLEAN AND DRY ALL NEEDS MET ENDORSE TO INCOMING SHIFT.
--- NOTE | 2022-01-11 07:10 | NUR ---
MS RN NOTES MD MADE AWARE OF CRITICAL LAB WBC 38.7. NO NEW ORDERS AT THIS TIME.
[2022-01-11 08:12] VITALS: BP_SYST 127; BP_SYST 129; BP_DIAS 48; BP_DIAS 52
[2022-01-11] MEDS ORDERED: OLANZAPINE 10 MG VIAL IM ONE (08:30)
[2022-01-11 08:36] VITALS: BP 129/92
[2022-01-11] MEDS: SEVELAMER CARBONATE 800 MG TABLET PO SCH ×3 (08:38→17:20)
[2022-01-11] MEDS: MEROPENEM 500 MG in IV NS 0.9% 50 ML IV SCH ×2 (08:38→20:07)
[2022-01-11] MEDS: DOCUSATE SODIUM 100 MG CAPSULE PO SCH (08:38)
[2022-01-11] MEDS ORDERED: IOHEXOL-300 100 ML VIAL IV ONE (09:16)
[2022-01-11] MEDS ORDERED: IV NS 0.9% 250 ML IV ONE (09:16)
[2022-01-11] MEDS ORDERED: CT SWABBABLE VALVE TRANS SET 1 EA INFUS.SET MC ONE (09:16)
[2022-01-11 09:47] LABS: BAND % (MANUAL) 3 % (0.0-5.0); EOSINOPHILS % (MANUAL) 1 % (0-4); LYMPHOCYTES % (MANUAL) 5 % (16-48); METAMYELOCYTES % 1 % (0-0); MONOCYTES % (MANUAL) 30 % (0-11.0); MYELOCYTES % 1 % (0-0); NEUTROPHILS % (MANUAL) 59 (42-76)
[2022-01-11] MEDS ORDERED: METOPROLOL TARTRATE INJ 5 MG/5 ML AMPUL ONE ×2 (09:55→10:09)
[2022-01-11] MEDS ORDERED: NITROGLYCERIN 0.4 MG/TAB BOTTLE ONE (09:55)
[2022-01-11] MEDS ORDERED: IOHEXOL-350 100 ML VIAL IV ONE (09:55)
[2022-01-11] MEDS ORDERED: NITROGLYCERIN 0.4 MG/TAB BOTTLE SL ONE (10:00)
[2022-01-11] MEDS: METOPROLOL TARTRATE INJ 5 MG/5 ML AMPUL IVP PRN ×4 (10:00→10:15)
--- NOTE | 2022-01-11 10:23 | NUR ---
CTA PROCEDURE WELL TOLERATED BY THE PT. PT IS AAOX4, NOT IN RESPIRATORY DISTRESS, V/S STABLE, KEPT RESTED AND COMFORTABLE. REPORT GIVEN TO EMMA CACERES FOR SELENA.
--- NOTE | 2022-01-11 14:00 | NUR ---
MS RN NOTES 500 ML REMOVED VIA HEMODIALYSIS FOLLOWING CTA TODAY.
[2022-01-11 16:18] VITALS: BP 127/48
[2022-01-11] MEDS: INSULIN REGULAR, HUMAN 100 UNIT/ML 3 ML VIAL SQ PRN (17:18)
--- NOTE | 2022-01-11 18:49 | NUR ---
MS RN CLOSING NOTES PATIENT IN BED WATCHING TV AT THIS TIME. A/O X2-3. HEBREW SPEAKING. ON ROOM AIR TOLERATING WELL, BREATHING EVEN AND UNLABORED WITH NO SOB NOTED DURING THE DAY. IV ACCESS ON RFA G#20 INTACT AND PATENT. PT WITH QUAN AV SHUNT WITH + BRUIT AND THRILL NOTED. RIGHT SHOULDER AND UPPER ARM REMAINS SWOLLEN, SLING KEPT IN PLACE. ALL NEEDS AND CARE ATTENDED WELL. SAFETY PRECAUTIONS MAINTAINED: BED IN LOWEST LOCKED POSITION WITH SR UP X2. TRAY TABLE AND CALL LIGHT W/I REACH OF PT. WILL ENDORSE SELEAN TO CARBURETOR REPAIRER NURSE
[2022-01-11 20:00] VITALS: BP 125/73
--- NOTE | 2022-01-11 20:00 | NUR ---
MS RN OPENING NOTES PATIENT IN BED WATCHING TV AT THIS TIME. A/O X2-3. NIC[place] SPEAKING. ON ROOM AIR TOLERATING WELL, BREATHING EVEN AND UNLABORED WITH NO SOB NOTED. IV ACCESS ON RFA G#20 INTACT AND PATENT. PT WITH QUAN AV SHUNT WITH + BRUIT AND THRILL NOTED. RIGHT SHOULDER AND UPPER ARM REMAINS SWOLLEN, SLING KEPT IN PLACE. ALL NEEDS AND CARE ATTENDED WELL. SAFETY PRECAUTIONS MAINTAINED: BED IN LOWEST LOCKED POSITION WITH SR UP X2. TRAY TABLE AND CALL LIGHT W/I REACH OF PT. WILL CONTINUE TO MONITOR.
[2022-01-11] MEDS ORDERED: LIDOCAINE 1% INJ 50 ML MDV IJ ONE (21:00)
[2022-01-11] MEDS: *INSULIN REGULAR(HUMULIN R)HUM 100 UNIT/ML VIAL SQ PRN (21:19)
--- NOTE | 2022-01-11 23:05 | NUR ---
MS RN NOTES ALL ITEMS PREPARED FOR BONE BIOPSY. BONE BIOPSY KIT PLACE DIN CASET IN MED ROOM, LIDOCAINE IN STATION WITH CHARGE NURSE. REST OF SUPPLIES IN THE ROOM WITH PT. WILL ENDORSE TO DAY SHIFT NURSE.
[2022-01-12 06:09] LABS: BASOPHILS # (AUTO) 0.1 K/uL (0.0-0.2); BASOPHILS % (AUTO) 0.2 % (0.0-2.0); EOSINOPHILS % (AUTO) 0.2 % (0.0-6.0); HEMATOCRIT 26 % (39-51); HEMOGLOBIN 8.6 g/dL (13.5-17.5); LYMPHOCYTES # (AUTO) 1.4 K/uL (0.8-4.8); LYMPHOCYTES % (AUTO) 3.3 % (20.0-44.0); MEAN CORPUSCULAR HGB CONC 33 g/dl (31.0-36.0); MEAN CORPUSCULAR VOLUME 94 fL (80-96); MONOCYTES # (AUTO) 14.7 K/uL (0.1-1.30); MONOCYTES % (AUTO) 35.2 % (2.0-12.0); NEUTROPHILS # (AUTO) 25.5 K/uL (1.8-8.9); NEUTROPHILS % (AUTO) 61.1 % (43.0-81.0); PLATELET COUNT (AUTO) 254 K/uL (150-450); RED BLOOD CELL COUNT(AUTO) 2.73 MIL/uL (4.5-6.0)
[2022-01-12 06:17] LABS: WHITE BLOOD COUNT (AUTO) 41.7 K/uL (4.3-11.0)
[2022-01-12 06:59] LABS: CALCIUM, SERUM 7.7 mg/dL (8.5-10.1); CARBON DIOXIDE 27 mmol/L (21-32); CHLORIDE 97 mmol/L (98-107); CREATININE 4.1 mg/dL (0.6-1.3); GLUCOSE 93 mg/dL (74-106); POTASSIUM 3.8 mmol/L (3.5-5.1); SODIUM SERUM 134 mmol/L (136-145); UREA NITROGEN, BLOOD 33 mg/dL (7-18)
--- NOTE | 2022-01-12 06:59 | NUR ---
MS RN CLOSING NOTES PATIENT IN BED ASLEEP. A/O X2-3. AFGHAN SPEAKING. ON ROOM AIR TOLERATING WELL, BREATHING EVEN AND UNLABORED WITH NO SOB NOTED. IV ACCESS ON RFA G#20 INTACT AND PATENT. PT WITH QUAN AV SHUNT WITH + BRUIT AND THRILL NOTED. RIGHT SHOULDER AND UPPER ARM REMAINS SWOLLEN, SLING KEPT IN PLACE. ALL NEEDS AND CARE ATTENDED WELL. WITH ABAD CATH DRAINING CLEAR YELLOW URINE 300CC OUTPUT DURING SHIFT. ALL MATERIALS PREPARED FOR BONE BIOPSY.SAFETY PRECAUTIONS MAINTAINED: BED IN LOWEST LOCKED POSITION WITH SR UP X2. TRAY TABLE AND CALL LIGHT W/I REACH OF PT. WILL ENDORSE CARE
[2022-01-12] MEDS: BLOOD SUGAR DIAGNOSTIC 1 EACH STRIP VI SCH ×4 (07:02→22:02)
[2022-01-12] MEDS: INSULIN REGULAR, HUMAN 100 UNIT/ML 3 ML VIAL SQ PRN (07:03)
[2022-01-12 07:21] LABS: LYMPHOCYTES % (MANUAL) 1 % (16-48); MONOCYTES % (MANUAL) 41 % (0-11.0); NEUTROPHILS % (MANUAL) 58 (42-76)
[2022-01-12 08:00] VITALS: BP 141/63
[2022-01-12] MEDS: SEVELAMER CARBONATE 800 MG TABLET PO SCH ×3 (08:00→17:43)
--- NOTE | 2022-01-12 08:00 | NUR ---
RN OPENING NOTE PATIENT AWAKE IN BED RESTING, A/O X2-3. NO S/S OF PAIN NOTED AT THIS TIME. ON ROOM AIR, NO DISTRESS OR SHORTNESS OF BREATH NOTED. IV ACCESS QUAN #20G, INTACT, PATENT AND FLUSHING WELL. PATIENT HAVE A ABAD CATHETER, IN PLACE AND DRAINING WELL. FALL AND SAFETY MEASURES IN PLACE, BED ALARM ON BED IN LOW AND LOCK POSITION, CALL LIGHT AND TABLE WITHIN EASY REACH, SIDE RAILS UP X2. WILL CONTINUE TO MONITOR. Addendum: 01/12/22 at 1847 by Jaqueline Tapia RN IV ACCESS RFA #20G, INTACT, PATENT AND FLUSHING WELL.
--- NOTE | 2022-01-12 11:10 | NUR ---
PATIENT MORNING MEDICATIONS 0800 SEVELAMER WAS NOT ADMINISTERED, PATIENT WAS GETTING DIALYSIS.
[2022-01-12] MEDS: MEROPENEM 500 MG in IV NS 0.9% 50 ML IV SCH ×2 (12:33→21:50)
[2022-01-12] MEDS: DOCUSATE SODIUM 100 MG CAPSULE PO SCH (12:33)
--- NOTE | 2022-01-12 13:00 | NUR ---
RN NOTE PATIENT HAD HEMODIALYSIS TODAY, OUTPUT WAS 1.5L, PATIENT V/S STABLE, PATIENT TOLERATED WELL.
--- NOTE | 2022-01-12 13:00 | NUR ---
PATIENT MORNING MEDICATIONS (meropenem and docusate) WERE ADMINISTERED LATE, PATIENT WAS GETTING DIALYSIS.
[2022-01-12] MEDS: MORPHINE SULFATE INJ 2 MG/ML DISP.SYRIN IV PRN (15:50)
[2022-01-12 16:41] LABS: BASOPHILS # (AUTO) 0.1 K/uL (0.0-0.2); BASOPHILS % (AUTO) 0.2 % (0.0-2.0); EOSINOPHILS % (AUTO) 0.2 % (0.0-6.0); HEMATOCRIT 27 % (39-51); HEMOGLOBIN 9.2 g/dL (13.5-17.5); LYMPHOCYTES # (AUTO) 1.2 K/uL (0.8-4.8); LYMPHOCYTES % (AUTO) 3.6 % (20.0-44.0); MEAN CORPUSCULAR HGB CONC 34 g/dl (31.0-36.0); MEAN CORPUSCULAR VOLUME 94 fL (80-96); MONOCYTES # (AUTO) 11.4 K/uL (0.1-1.30); NEUTROPHILS # (AUTO) 21.8 K/uL (1.8-8.9); PLATELET COUNT (AUTO) 275 K/uL (150-450); RED BLOOD CELL COUNT(AUTO) 2.89 MIL/uL (4.5-6.0)
[2022-01-12 16:42] LABS: WHITE BLOOD COUNT (AUTO) 34.6 K/uL (4.3-11.0)
--- NOTE | 2022-01-12 17:00 | NUR ---
RN NOTE Patient got a bone marrow biopsy today at bed side. Location right posterior superior iliac crest. The area was covered with gauze and an adhesive bandage. No significant post-procedural bleeding or complications at the moment. Doctor Moy gave post-procedural instructions, including not to shower until tomorrow and, if possible, to lie down with pressure on the biopsy location. The patient tolerated the procedure well. the Specimens were taken to the lab. Will continue to monitor.
[2022-01-12 17:21] LABS: BAND % (MANUAL) 1 % (0.0-5.0); LYMPHOCYTES % (MANUAL) 7 % (16-48); MONOCYTES % (MANUAL) 22 % (0-11.0); NEUTROPHILS % (MANUAL) 70 (42-76)
--- NOTE | 2022-01-12 18:44 | NUR ---
RN CLOSING NOTE PATIENT AWAKE IN BED RESTING, A/O X 3. NO S/S OF PAIN NOTED AT THIS TIME. ON ROOM AIR, NO DISTRESS OR SHORTNESS OF BREATH NOTED. IV ACCESS RFA #20G, INTACT, PATENT AND FLUSHING WELL. PATIENT HAVE A ABAD CATHETER, IN PLACE AND DRAINING WELL, OUTPUT 250ML. SCHEDULE MEDICATIONS ADMINISTERED. PATIENT WAS TURNED AND REPOSITIONED PER PROTOCOL. FALL AND SAFETY MEASURES IN PLACE, BED ALARM ON BED IN LOW AND LOCK POSITION, CALL LIGHT AND TABLE WITHIN EASY REACH, SIDE RAILS UP X2. WILL ENDORSE TO BAND SEWER.
--- NOTE | 2022-01-12 20:15 | NUR ---
RN OPENING NOTE PATIENT RECEIVED IN BED AA/OX2-3.ANDREI WELL ON ROOM AIR, NO SOB/DISTRESS NOTED. IV ACCESS QUAN #20G, INTACT, PATENT AND INTACT FLUSHING WELL. PATIENT HAVE A ABAD CATHETER, IN PLACE AND DRAINING MON[place] URINE.SAFETY MEASURES IN PLACE, BED ALARM ON BED IN LOW AND LOCK POSITION, CALL LIGHT AND TABLE WITHIN EASY REACH, SIDE RAILS UP X2. WILL CONTINUE TO MONITOR.
[2022-01-13 02:24] VITALS: BP 107/65
--- NOTE | 2022-01-13 06:45 | NUR ---
RN CLOSING NOTE PATIENT IN BED RESTING COMFORTABLE WITH HOB ELEVATED. A/O X 3.ON RM AIR ANDREI WELL. NO SIGN SOB/DISTRESS NOTED. IV ACCESS RFA #20G, INTACT, PATENT AND INTACT.ALL NEEDS ATTENDED,DUE MEDS GIVEN PO. ABAD CATHETER, IN PLACE AND DRAINING MONCHO URINE. FALL AND SAFETY MEASURES IN PLACE,CALL LIGHT AND TABLE WITHIN EASY REACH, SIDE RAILS UP X2. WILL ENDORSE TO METER TESTER POLYPHASE.
[2022-01-13] MEDS: BLOOD SUGAR DIAGNOSTIC 1 EACH STRIP VI SCH ×4 (06:55→21:10)
--- NOTE | 2022-01-13 07:35 | NUR ---
RN OPENING NOTES: RECEIVED PATIENT IN BED AWAKE, A/O X3 CITIZEN OF [place] SPEAKING. DENIES PAIN AT THIS TIME. ON ROOM AIR, NO DISTRESS OR SHORTNESS OF BREATH NOTED. IV ACCESS QUAN #20G SALINE LOCKED, INTACT, PATENT AND FLUSHING WELL. NOTED WITH RIGHT ARM SLING. PATIENT HAVE A ABAD CATHETER, IN PLACE AND DRAINING YELLOW COLORED URINE WELL VIA GRAVITY. FALL AND SAFETY MEASURES MAINTAINED BED ALARM ON BED IN LOW AND LOCK POSITION, CALL LIGHT AND TABLE WITHIN EASY REACH, SIDE RAILS UP X2. WILL CONTINUE TO MONITOR.
[2022-01-13 08:00] VITALS: BP 125/69
[2022-01-13] MEDS: SEVELAMER CARBONATE 800 MG TABLET PO SCH ×3 (08:31→17:40)
[2022-01-13] MEDS: DOCUSATE SODIUM 100 MG CAPSULE PO SCH (08:31)
[2022-01-13] MEDS: MEROPENEM 500 MG in IV NS 0.9% 50 ML IV SCH ×2 (09:17→21:01)
[2022-01-13 09:22] LABS: CARBON DIOXIDE 28 mmol/L (21-32); CHLORIDE 99 mmol/L (98-107); CREATININE 3.8 mg/dL (0.6-1.3); GLUCOSE 130 mg/dL (74-106); POTASSIUM 3.5 mmol/L (3.5-5.1); SODIUM SERUM 136 mmol/L (136-145); UREA NITROGEN, BLOOD 30 mg/dL (7-18)
[2022-01-13 16:00] VITALS: BP 112/63
--- NOTE | 2022-01-13 19:00 | NUR ---
MS RN CLOSING NOTES: PATIENT IN BED AWAKE, A/O X3 [place]BRE[place] SPEAKING. DENIES PAIN AT THIS TIME. ON ROOM AIR, NO DISTRESS OR SHORTNESS OF BREATH NOTED. IV ACCESS QUAN #20G SALINE LOCKED, INTACT, PATENT AND FLUSHING WELL. NOTED WITH RIGHT ARM SLING. QUAN AV SHUNT FOR HD. PATIENT HAVE A ABAD CATHETER, IN PLACE AND DRAINING YELLOW COLORED URINE WELL VIA GRAVITY. FALL AND SAFETY MEASURES MAINTAINED BED ALARM ON BED IN LOW AND LOCK POSITION, CALL LIGHT AND TABLE WITHIN EASY REACH, SIDE RAILS UP X2. WILL CONTINUE TO MONITOR.ENDORSED TO ASSOCIATE CHIEF NURSE NURSE FOR SELENA.
[2022-01-13 20:00] VITALS: BP 107/60
[2022-01-14 06:21] LABS: BASOPHILS # (AUTO) 0.1 K/uL (0.0-0.2); BASOPHILS % (AUTO) 0.4 % (0.0-2.0); EOSINOPHILS % (AUTO) 0.2 % (0.0-6.0); HEMATOCRIT 27 % (39-51); LYMPHOCYTES # (AUTO) 1.4 K/uL (0.8-4.8); LYMPHOCYTES % (AUTO) 5.6 % (20.0-44.0); MEAN CORPUSCULAR HGB CONC 33 g/dl (31.0-36.0); MEAN CORPUSCULAR VOLUME 95 fL (80-96); MONOCYTES # (AUTO) 9.8 K/uL (0.1-1.30); MONOCYTES % (AUTO) 40.7 % (2.0-12.0); NEUTROPHILS # (AUTO) 12.8 K/uL (1.8-8.9); NEUTROPHILS % (AUTO) 53.1 % (43.0-81.0); PLATELET COUNT (AUTO) 275 K/uL (150-450); RED BLOOD CELL COUNT(AUTO) 2.85 MIL/uL (4.5-6.0); WHITE BLOOD COUNT (AUTO) 24.2 K/uL (4.3-11.0)
[2022-01-14 06:58] LABS: CALCIUM, SERUM 8.1 mg/dL (8.5-10.1); CARBON DIOXIDE 27 mmol/L (21-32); CHLORIDE 100 mmol/L (98-107); CREATININE 4.5 mg/dL (0.6-1.3); GLUCOSE 95 mg/dL (74-106); POTASSIUM 3.8 mmol/L (3.5-5.1); SODIUM SERUM 139 mmol/L (136-145); UREA NITROGEN, BLOOD 40 mg/dL (7-18)
--- NOTE | 2022-01-14 06:58 | NUR ---
SCHEDULE CLERKMACHINING MANAGER NOTE PATIENT IN BED EYES CLOSED, EASILY AWAKENED, A/O X3 AUSTRIAN SPEAKING. ON ROOM AIR, NO DISTRESS OR SHORTNESS OF BREATH NOTED. IV ACCESS RFA 20G SALINE LOCKED, INTACT, PATENT AND FLUSHING WELL. RIGHT ARM SLING ON D/T SHOULDER FX. QUAN AV SHUNT FOR HD. PATIENT HAVE A ABAD CATHETER, IN PLACE AND DRAINING YELLOW COLORED URINE WELL VIA GRAVITY. BS 81 MG/DL, NPO STATUS. NO SIGNIFICANT CHANGES DURING THE SHIFT. SAFETY MEASURES MAINTAINED BED ALARM ON BED IN LOW AND LOCK POSITION, CALL LIGHT AND TABLE WITHIN EASY REACH, SIDE RAILS UP X2. ALL NEEDS MET AND ATTENDED. ALL ORDERS CARRIED OUT. NO SELENA WILL ENDORSE TO DAY SHIFT NURSE FOR SELENA.
--- NOTE | 2022-01-14 07:27 | NUR ---
MS RN OPENING NOTES: RECEIVED PATIENT AWAKE IN BED IN NO ACUTE SIGN SOF DISTRESS. HOB ELEVATED. A/O X3 WOLOF SPEAKING. DENIES PAIN AT THIS TIME. PT ON NPO, FOR SURGERY TODAY BY DR AMBROSE, TIME PENDING. ON ROOM AIR, BREATHING EVEN AND UNLABORED. NO SOB NOTED. IV ACCESS RFA #20G SALINE LOCKED, INTACT, PATENT AND FLUSHING WELL. SWELLING AND DISCOLORATION ON RIGHT SHOULDER NOTED,RIGHT ARM SLING IN PLACE. PT WITH QUAN AV SHUNT WITH + BRUIT AND THRILL. ABAD CATHETER, IN PLACE AND DRAINING CLEAR YELLOW COLORED URINE WELL VIA GRAVITY. FALL AND SAFETY MEASURES MAINTAINED: BED ALARM ON BED IN LOW AND LOCKED POSITION, CALL LIGHT AND TRAY TABLE WITHIN EASY REACH, SIDE RAILS UP X2. WILL CONTINUE TO MONITOR.
[2022-01-14] MEDS: BLOOD SUGAR DIAGNOSTIC 1 EACH STRIP VI SCH ×4 (07:35→21:34)
[2022-01-14] MEDS: MEROPENEM 500 MG in IV NS 0.9% 50 ML IV SCH ×2 (08:14→20:01)
--- NOTE | 2022-01-14 08:33 | NUR ---
WOUND CARE CONSULT: PT SEEN FOR SKIN ASSESSMENT AND NOTED TO HAVE AREAS OF SKIN DISCOLORATION, RT BUTTOCK RAISED NONTENDER AREA, SWELLING TO RT SHOULDER WITH DISCOLORATION AND SKIN TEAR TO RT MEDIAL UPPER ARM. DR PERRY EXAMINED PT'S RT BUTTOCK AREA. RECOMMENDATIONS MADE FOR SKIN PROTECTION AND WOUND CARE. DISCUSSED WITH NURSING STAFF. MD IN AGREEMENT WITH PLAN OF CARE.
[2022-01-14] MEDS: DOCUSATE SODIUM 100 MG CAPSULE PO SCH (08:38)
[2022-01-14] MEDS: SEVELAMER CARBONATE 800 MG TABLET PO SCH ×3 (08:39→17:12)
--- NOTE | 2022-01-14 09:02 | NUR ---
RN NOTES PT CAN EAT TODAY AND NPO POST MIDNIGHT PER DR AMBROSE. LEFT RADICAL ORCHIECTOMY SURGERY WILL BE DONE TOMORROW, 01/15/22.
[2022-01-14] MEDS: Z GUARD REMEDY 4 OZ OINT TP SCH (09:18)
[2022-01-14] MEDS: INSULIN REGULAR, HUMAN 100 UNIT/ML 3 ML VIAL SQ PRN ×2 (11:45→16:54)
[2022-01-14 14:20] LABS: BAND % (MANUAL) 1 % (0.0-5.0); NEUTROPHILS % (MANUAL) 66 (42-76)
[2022-01-14 14:23] LABS: LYMPHOCYTES % (MANUAL) 8 % (16-48); MONOCYTES % (MANUAL) 25 % (0-11.0)
[2022-01-14 16:00] VITALS: BP 102/74
--- NOTE | 2022-01-14 18:37 | NUR ---
RN NOTES RECEIVED CALL FROM DR AMBROSE THAT PT'S LEFT RADICAL ORCHIECTOMY SURGERY SCHEDULED AT 0830 TOMORROW.
--- NOTE | 2022-01-14 18:46 | NUR ---
MS RN CLOSING NOTES: PATIENT SLEEPING IN BED AT THIS TIME. HOB ELEVATED. A/O X3. CROATIAN SPEAKING.PT FOR LEFT RADICAL ORCHIECTOMY TOMORROW, 01/15/[address] AMBROSE, NPO TO BE ENFORCED AFTER MIDNIGHT. ON ROOM AIR, BREATHING EVEN AND UNLABORED, NO SOB NOTED. IV ACCESS RFA #20G SALINE LOCKED, INTACT, PATENT AND FLUSHING WELL. PT WITH QUAN AV SHUNT WITH + BRUIT AND THRILL. ABAD CATHETER IN PLACE AND DRAINING CLEAR YELLOW COLORED URINE WELL VIA GRAVITY, ABAD CARE DONE. PT. TURNED AND REPOSITIONED EVERY 2 HRS. ALL NEEDS ATTENDED WELL. SAFETY MEASURES KEPT IN PLACE: BED IN LOWEST LOCKED POSITION, CALL LIGHT AND TRAY TABLE WITHIN EASY REACH OF PT, SIDE RAILS UP X2. WILL ENDORSE SELENA TO MIXING MACHINE TENDER CORK GASKET NURSE.
--- NOTE | 2022-01-14 19:31 | NUR ---
MS RN OPENING NOTES: RECEIVED PATIENT AA/O X3 YI SPEAKING.ON ROOM AIR,NO SOB/DISTRESS NOTED. BREATHING EVEN AND UNLABORED.IV ACCESS RFA #20G SALINE LOCKED, INTACT, PATENT AND FLUSHING WELL. SWELLING AND DISCOLORATION ON RIGHT SHOULDER NOTED,RIGHT ARM SLING IN PLACE. PT WITH QUAN AV SHUNT WITH + BRUIT AND THRILL. ABAD CATHETER, IN PLACE AND DRAINING CLEAR YELLOW COLORED URINE WELL VIA GRAVITY. FALL AND SAFETY MEASURES MAINTAINED: BED ALARM ON BED IN LOW AND LOCKED POSITION, CALL LIGHT AND TRAY TABLE WITHIN EASY REACH, SIDE RAILS UP X2. WILL CONTINUE TO MONITOR.
[2022-01-14 20:00] VITALS: BP 135/65
[2022-01-15] MEDS: ACETAMINOPHEN 325 MG TABLET PO PRN (02:56)
--- NOTE | 2022-01-15 06:05 | NUR ---
MS RN OPENING NOTES: PATIENT AA/O X3 BHUTANESE SPEAKING.ON ROOM AIR,ANDREI WELL NO SOB/DISTRESS NOTED. BREATHING EVEN AND UNLABORED.IV ACCESS RFA #20G PATENT AND INTACT.PT WITH QUAN AV SHUNT WITH BRUIT AND THRILL PRESENT.ABAD CATHETER DRAINING CLEAR YELLOW COLORED URINE VIA GRAVITY (200) FALL AND SAFETY MEASURES MAINTAINED: BED ALARM ON BED IN LOW AND LOCKED POSITION, CALL LIGHT AND TRAY TABLE WITHIN EASY REACH, SIDE RAILS UP X2. WILL ENDORSED TO NEXT SHIFT.
[2022-01-15] MEDS: BLOOD SUGAR DIAGNOSTIC 1 EACH STRIP VI SCH ×4 (06:42→21:43)
[2022-01-15] MEDS ORDERED: FENTANYL PF 250MCG/5ML AMPUL ONE ×2 (07:31)
[2022-01-15] MEDS ORDERED: MIDAZOLAM HCL 2 MG/2ML VIAL ONE (07:31)
[2022-01-15] MEDS ORDERED: ATRACURIUM 100MG/10 ML MDV IV ONE (07:32)
[2022-01-15] MEDS ORDERED: FAMOTIDINE/PF INJ 20 MG/2 ML VIAL IV ONE (07:32)
--- NOTE | 2022-01-15 07:42 | NUR ---
MS RN OPENING NOTES: RECEIVED PATIENT IN BED SLEEPS. OPENS EYES UPON CALLING HIS NAME. A/O X3 UZBEK SPEAKING.ON ROOM AIR,NO SOB/DISTRESS NOTED. BREATHING EVEN AND UNLABORED.IV ACCESS RFA #20G SALINE LOCKED, INTACT, PATENT AND FLUSHING WELL. SWELLING AND DISCOLORATION ON RIGHT SHOULDER NOTED,RIGHT ARM SLING IN PLACE. PT WITH QUAN AV SHUNT WITH + BRUIT AND THRILL. ABAD CATHETER, IN PLACE AND DRAINING CLEAR YELLOW COLORED URINE WELL VIA GRAVITY. FALL AND SAFETY MEASURES MAINTAINED: BED ALARM ON BED IN LOW AND LOCKED POSITION, CALL LIGHT AND TABLE WITHIN EASY REACH, SIDE RAILS UP X2. WILL CONTINUE TO MONITOR.
[2022-01-15] MEDS ORDERED: POLYMYXIN B SULFATE 0 UNITS ONE (07:47)
[2022-01-15] MEDS ORDERED: ANESTHESIA TRAY IN PYXIS 1 EA TRAY MC ONE (07:47)
[2022-01-15] MEDS ORDERED: BUPIVACAINE 0.5 % PF 150 MG/30 ML VIAL ONE (07:47)
[2022-01-15] MEDS ORDERED: BUPIVACAINE MPF 0.5% W/EPI INJ 30 ML VIAL ONE (07:47)
[2022-01-15] MEDS ORDERED: LIDOCAINE 1% INJ 50 ML MDV IJ ONE (07:47)
[2022-01-15 08:00] VITALS: BP 107/74
[2022-01-15] MEDS: SEVELAMER CARBONATE 800 MG TABLET PO SCH ×3 (08:00→17:39)
--- NOTE | 2022-01-15 08:20 | NUR ---
RN NOTES PATIENT OUT OF UNIT FOR SURGERY AT 0806 AM. CALLED SON AT 0814 AND GOT CONSENT FOR SURGERY.IT WAS SIGNED PARTIALLY AT 01/13/22.
[2022-01-15] MEDS: DOCUSATE SODIUM 100 MG CAPSULE PO SCH (09:00)
[2022-01-15] MEDS: MEROPENEM 500 MG in IV NS 0.9% 50 ML IV SCH ×2 (09:00→21:02)
[2022-01-15] MEDS: Z GUARD REMEDY 4 OZ OINT TP SCH (09:00)
--- NOTE | 2022-01-15 10:55 | NUR ---
RN NOTES PATIENT BACK FROM SURGERY AT 1053 AM. ALERT AND ORIENTED TIMES 3. NO PAIN NOTED. NO SOB NOTED NO DISTRESS NOTED. SURGERY SITE ON THE LEFT LOWER ABDOMEN INTACT. NO BLEEDING NOTED. VITAL SIGNS IN NORMAL RANGES. ALL NEEDS ATTENDED. DIALYSIS NURSE PRESENT FOR DIALYSIS. WILL CONTINUE TO MONITOR.
[2022-01-15 12:00] VITALS: BP 111/62
[2022-01-15 16:00] VITALS: BP 120/67
--- NOTE | 2022-01-15 18:53 | NUR ---
MS RN CLOSING NOTES: PATIENT IN BED SLEEPS. OPENS EYES UPON CALLING HIS NAME. A/O X3 NIGERIEN SPEAKING.ON ROOM AIR,NO SOB/DISTRESS NOTED. BREATHING EVEN AND UNLABORED.IV ACCESS RFA #20G SALINE LOCKED, INTACT, PATENT AND FLUSHING WELL. SWELLING AND DISCOLORATION ON RIGHT SHOULDER NOTED,RIGHT ARM SLING IN PLACE. PT WITH QUAN AV SHUNT WITH + BRUIT AND THRILL. ABAD CATHETER, IN PLACE AND DRAINING CLEAR YELLOW COLORED URINE WELL VIA GRAVITY. ALL DUE MEDS GIVEN ORDERED. NO BLEEDING NOTED ON THE SURGERY SITE. FALL AND SAFETY MEASURES MAINTAINED: BED ALARM ON BED IN LOW AND LOCKED POSITION, CALL LIGHT AND TABLE WITHIN EASY REACH, SIDE RAILS UP X2. WILL ENDORSE FOR SELENA.
--- NOTE | 2022-01-15 19:40 | NUR ---
MS RN OPENING NOTES PATIENT IN BED EYES CLOSED, EASILY AWAKENED, A/O X3 NEPALI SPEAKING. ON ROOM AIR, NO DISTRESS OR SHORTNESS OF BREATH NOTED. IV ACCESS RFA 20G SALINE LOCKED, INTACT, PATENT AND FLUSHING WELL. RIGHT ARM SLING ON D/T SHOULDER FX. QUAN AV SHUNT FOR HD. ABAD CATHETER, IN PLACE AND DRAINING YELLOW COLORED URINE WELL VIA GRAVITY. PATIENT S/P LEFT RADICAL ORCHIECTOMY; SAFETY MEASURES MAINTAINED BED ALARM ON BED IN LOW AND LOCK POSITION, CALL LIGHT AND TABLE WITHIN EASY REACH, SIDE RAILS UP X2. WILL CONT PLAN OF CARE
[2022-01-15 20:00] VITALS: BP 109/72
[2022-01-15] MEDS: *INSULIN REGULAR(HUMULIN R)HUM 100 UNIT/ML VIAL SQ PRN (21:43)
[2022-01-16] MEDS: INSULIN REGULAR, HUMAN 100 UNIT/ML 3 ML VIAL SQ PRN (06:32)
[2022-01-16] MEDS: BLOOD SUGAR DIAGNOSTIC 1 EACH STRIP VI SCH ×4 (06:32→22:54)
--- NOTE | 2022-01-16 06:36 | NUR ---
MS RN NOTE PATIENT REFUSING LAB DRAW;
--- NOTE | 2022-01-16 06:57 | NUR ---
MS RN CLOSING NOTES PATIENT IN BED RESTING COMFORTABLY; , A/O X13-2 BANGLADESHI SPEAKING. SOMETIMES CONFUSED AND FORGETFUL; PATIENT VERBALIZED WANTING TO STAND UP TO SHOWER, PATIENT RE-ORIENTED AND RE-EDUCATED, UNABLE TO WALK AND FALL PRECAUTIONS; PATIENT UPSET AND WANTED TO GET OUT OF BED TO SHOWER; CHARGE NURSE AWARE; ON ROOM AIR, NO DISTRESS OR SHORTNESS OF BREATH NOTED. IV ACCESS RFA 20G SALINE LOCKED, INTACT, PATENT AND FLUSHING WELL. RIGHT ARM SLING ON D/T SHOULDER FX. QUAN AV SHUNT FOR HD. ABAD CATHETER, IN PLACE AND DRAINING YELLOW COLORED URINE WELL VIA GRAVITY. PATIENT S/P LEFT RADICAL ORCHIECTOMY; ALL NEEDS RENDERED; SAFETY MEASURES MAINTAINED BED ALARM ON BED IN LOW AND LOCK POSITION, CALL LIGHT AND TABLE WITHIN EASY REACH, SIDE RAILS UP X2; WILL ENDORSE SELENA TO ONCOMING SHIFT
--- NOTE | 2022-01-16 07:59 | NUR ---
MS RN OPENING NOTE Patient in bed, awake. A/O x 1-2, with periods of confusion. On room air, breathing evenly and unlabored. No SOB or s/s of distress noted. IV access on LFA #20 SL, intact and patent. Gardiner catheter in place draining to a yellow colored urine. Safety precautions in place: bed in low, locked position; siderails up x 2; call light within reach. Will continue to monitor.
[2022-01-16 08:00] VITALS: BP 137/68
[2022-01-16] MEDS: DOCUSATE SODIUM 100 MG CAPSULE PO SCH ×2 (08:49→08:52)
[2022-01-16] MEDS: MEROPENEM 500 MG in IV NS 0.9% 50 ML IV SCH ×2 (08:49→20:57)
[2022-01-16] MEDS: SEVELAMER CARBONATE 800 MG TABLET PO SCH ×3 (08:49→17:44)
[2022-01-16] MEDS: Z GUARD REMEDY 4 OZ OINT TP SCH (08:59)
--- NOTE | 2022-01-16 09:30 | NUR ---
RN NOTE Shakila from lab called, states patient is refusing blood draw. They attempted blood draw 2x, patient still refusing.
[2022-01-16 11:04] LABS: CALCIUM, SERUM 8.4 mg/dL (8.5-10.1); CARBON DIOXIDE 26 mmol/L (21-32); CHLORIDE 95 mmol/L (98-107); CREATININE 4.6 mg/dL (0.6-1.3); GLUCOSE 91 mg/dL (74-106); MAGNESIUM 2.1 mg/dL (1.8-2.4); PHOSPHORUS 4.4 mg/dL (2.5-4.9); POTASSIUM 4.5 mmol/L (3.5-5.1); SODIUM SERUM 132 mmol/L (136-145); UREA NITROGEN, BLOOD 34 mg/dL (7-18)
[2022-01-16 11:23] LABS: BASOPHILS % (AUTO) 0.1 % (0.0-2.0); HEMATOCRIT 25 % (39-51); HEMOGLOBIN 8.3 g/dL (13.5-17.5); LYMPHOCYTES # (AUTO) 0.8 K/uL (0.8-4.8); LYMPHOCYTES % (AUTO) 2.6 % (20.0-44.0); MEAN CORPUSCULAR HGB CONC 33 g/dl (31.0-36.0); MEAN CORPUSCULAR VOLUME 96 fL (80-96); MONOCYTES # (AUTO) 16.1 K/uL (0.1-1.30); MONOCYTES % (AUTO) 51.7 % (2.0-12.0); NEUTROPHILS # (AUTO) 14.2 K/uL (1.8-8.9); NEUTROPHILS % (AUTO) 45.6 % (43.0-81.0); PLATELET COUNT (AUTO) 179 K/uL (150-450); RED BLOOD CELL COUNT(AUTO) 2.65 MIL/uL (4.5-6.0)
[2022-01-16 11:44] LABS: WHITE BLOOD COUNT (AUTO) 31.1 K/uL (4.3-11.0)
--- NOTE | 2022-01-16 11:45 | NUR ---
RN NOTE Received critical value from Robert, from lab, WBC is 31.1. Dr. Stone notified, no new orders.
[2022-01-16 13:30] LABS: BAND % (MANUAL) 1 % (0.0-5.0); LYMPHOCYTES % (MANUAL) 3 % (16-48); MONOCYTES % (MANUAL) 42 % (0-11.0); NEUTROPHILS % (MANUAL) 54 (42-76)
[2022-01-16] MEDS: HYDROCODONE/APAP 5/325MG TABLET PO PRN (14:36)
--- NOTE | 2022-01-16 14:36 | NUR ---
RN NOTE Patient complained of pain on Right shoulder 4/10 pain scale. PRN [place] 5/325 1 tablet given. Will continue to monitor.
[2022-01-16 16:00] VITALS: BP 122/74
--- NOTE | 2022-01-16 19:02 | NUR ---
MS RN CLOSING NOTE Patient in bed, resting. A/O x 1-2, with periods of confusion. Stable on room air, breathing evenly and unlabored. No SOB or s/s of distress noted. IV access on LFA #20 SL, intact and patent. Gardiner catheter in place draining to a yellow colored urine with an output of 300 cc. Due meds given. All needs attended to. Safety precautions in place: bed in low, locked position; siderails up x 2; call light within reach. Will endorse to reimbursement specialist nurse for SELENA.
--- NOTE | 2022-01-16 19:50 | NUR ---
MS/TELE/RN RECEIVED PATIENT LYING IN BED SLEEPING, APPEARS COMFORTABLE, NO SIGNS OF DISTRESS NOTED, CALL LIGHT IN REACH, FALL PRECAUTIONS IMPLEMENTED PER PROTOCOL, WILL MONITOR.
[2022-01-16 20:00] VITALS: BP 113/91
--- NOTE | 2022-01-17 01:17 | NUR ---
MS/TELE/RN PATIENT WAS AWAKE AT 2100, ACCU CHECK WAS DONE AT 2130, BLOOD SUGAR WAS 76, SNACK WAS GIVEN. PATIENT HAD BM, CLEANED PATIENT. CURRENTLY, PATIENT IS SLEEPING, APPEARS COMFORTABLE, AROUSES EASILY, NO DISTRESS NOTE, CALL LIGHT IN REACH. WILL CONTINUE TO MONITOR.
--- NOTE | 2022-01-17 06:46 | NUR ---
MS/TELE/RN PATIENT IS STILL SLEEPING, EASILY AROUSABLE, APPEARS COMFORTABLE, NO SIGNS OF DISTRESS NOTED, CALL LIGHT IN REACH, ALL NEEDS ATTENDED AT THIS TIME, WILL CONTINUE TO MONITOR.
[2022-01-17] MEDS: BLOOD SUGAR DIAGNOSTIC 1 EACH STRIP VI SCH ×4 (06:53→21:23)
[2022-01-17 06:57] LABS: BASOPHILS % (AUTO) 0.2 % (0.0-2.0); EOSINOPHILS % (AUTO) 0.1 % (0.0-6.0); HEMATOCRIT 24 % (39-51); HEMOGLOBIN 7.9 g/dL (13.5-17.5); LYMPHOCYTES # (AUTO) 0.9 K/uL (0.8-4.8); LYMPHOCYTES % (AUTO) 3.5 % (20.0-44.0); MEAN CORPUSCULAR HGB CONC 33 g/dl (31.0-36.0); MEAN CORPUSCULAR VOLUME 95 fL (80-96); MONOCYTES # (AUTO) 13.7 K/uL (0.1-1.30); MONOCYTES % (AUTO) 53.3 % (2.0-12.0); NEUTROPHILS % (AUTO) 42.9 % (43.0-81.0); PLATELET COUNT (AUTO) 162 K/uL (150-450); RED BLOOD CELL COUNT(AUTO) 2.56 MIL/uL (4.5-6.0); WHITE BLOOD COUNT (AUTO) 25.6 K/uL (4.3-11.0)
[2022-01-17 07:13] LABS: CALCIUM, SERUM 8.4 mg/dL (8.5-10.1); CARBON DIOXIDE 26 mmol/L (21-32); CHLORIDE 95 mmol/L (98-107); CREATININE 5.1 mg/dL (0.6-1.3); GLUCOSE 80 mg/dL (74-106); MAGNESIUM 2.1 mg/dL (1.8-2.4); PHOSPHORUS 4.9 mg/dL (2.5-4.9); POTASSIUM 4.3 mmol/L (3.5-5.1); SODIUM SERUM 132 mmol/L (136-145); UREA NITROGEN, BLOOD 40 mg/dL (7-18)
--- NOTE | 2022-01-17 07:30 | NUR ---
MS RN OPENING NOTE Patient in bed awake and verbally responsive , A/O x 1-2, with periods of confusion. On room air, breathing evenly and unlabored. No SOB or s/s of distress noted. IV access on RFA SL, intact and patent. Gardiner catheter in place draining to a yellow colored urine . Safety precautions in place: bed in low, locked position; siderails up x 2; call light within reach. Will continue to monitor.
[2022-01-17 08:00] VITALS: BP 156/59
[2022-01-17] MEDS: DOCUSATE SODIUM 100 MG CAPSULE PO SCH (09:13)
[2022-01-17] MEDS: HYDROCODONE/APAP 5/325MG TABLET PO PRN (09:13)
--- NOTE | 2022-01-17 09:13 | NUR ---
RN NOTE Patient complained of pain on Right shoulder 7/10 on pain scale. PRN [place] 5/325 1 tablet given. Will continue to monitor.
[2022-01-17] MEDS: SEVELAMER CARBONATE 800 MG TABLET PO SCH ×3 (09:14→17:15)
[2022-01-17] MEDS: MEROPENEM 500 MG in IV NS 0.9% 50 ML IV SCH ×2 (09:14→21:00)
[2022-01-17] MEDS: Z GUARD REMEDY 4 OZ OINT TP SCH (09:36)
[2022-01-17 10:26] LABS: BAND % (MANUAL) 1 % (0.0-5.0); LYMPHOCYTES % (MANUAL) 6 % (16-48); MONOCYTES % (MANUAL) 45 % (0-11.0); MYELOCYTES % 1 % (0-0); NEUTROPHILS % (MANUAL) 47 (42-76)
[2022-01-17 16:00] VITALS: BP 153/48
--- NOTE | 2022-01-17 18:55 | NUR ---
MS RN CLOSING NOTES PATIENT ON BED , RESTING , A/O X 2 , VERBALLY RESPONSIVE WITH CONFUSION AND FORGETFULNESS , NO SOB OR DISTRESS NOTED , RECEIVED DIALYSIS WITH 2 LITERS OUT , BM NOTED X 2 , ABAD CATHETER WITH 50 CC OUTPUT , RFA #20 SL , ACCUCHECK DONE BID AND NO INSULIN GIVEN , DIET WAS CHANGED TO FINELY CHOPPED AND ABLE TO TOLERATE FOOD , COMPLAINTS OF PAIN AND NORCO WAS GIVEN AND WITH HELP , SAFETY PRECAUTIONS PROVIDED AND MONITORED FOR AHY CHANGES . ALL NEED ATTENDED AND ENDORSED TO NEXT SHIFT
--- NOTE | 2022-01-17 19:36 | NUR ---
MS RN OPENING NOTE received pt in bed AA/O x 1-2, with periods of confusion. On room air, breathing evenly and unlabored. No SOB/ distress noted. IV access on RFA 20G SL, intact and patent. Gardiner catheter in place draining to a diana colored urine .Safety precautions in place: bed in low, locked position; siderails up x 2; call light within reach. Will continue to monitor.
[2022-01-17 20:00] VITALS: BP 137/50
[2022-01-18] MEDS: HYDROCODONE/APAP 5/325MG TABLET PO PRN (01:36)
[2022-01-18] MEDS: MORPHINE SULFATE INJ 2 MG/ML DISP.SYRIN IV PRN ×2 (04:05→08:07)
[2022-01-18] MEDS: BLOOD SUGAR DIAGNOSTIC 1 EACH STRIP VI SCH ×4 (06:26→21:28)
[2022-01-18 06:46] LABS: CALCIUM, SERUM 8.2 mg/dL (8.5-10.1); CARBON DIOXIDE 27 mmol/L (21-32); CHLORIDE 100 mmol/L (98-107); CREATININE 4.2 mg/dL (0.6-1.3); GLUCOSE 86 mg/dL (74-106); MAGNESIUM 2.2 mg/dL (1.8-2.4); PHOSPHORUS 4.5 mg/dL (2.5-4.9); POTASSIUM 4.2 mmol/L (3.5-5.1); SODIUM SERUM 136 mmol/L (136-145); UREA NITROGEN, BLOOD 30 mg/dL (7-18)
[2022-01-18 06:47] LABS: BASOPHILS # (AUTO) 0.1 K/uL (0.0-0.2); BASOPHILS % (AUTO) 0.2 % (0.0-2.0); EOSINOPHILS % (AUTO) 0.1 % (0.0-6.0); HEMATOCRIT 26 % (39-51); HEMOGLOBIN 8.5 g/dL (13.5-17.5); LYMPHOCYTES # (AUTO) 0.8 K/uL (0.8-4.8); LYMPHOCYTES % (AUTO) 3.4 % (20.0-44.0); MEAN CORPUSCULAR HGB CONC 33 g/dl (31.0-36.0); MEAN CORPUSCULAR VOLUME 96 fL (80-96); MONOCYTES # (AUTO) 10.6 K/uL (0.1-1.30); MONOCYTES % (AUTO) 44.7 % (2.0-12.0); NEUTROPHILS # (AUTO) 12.2 K/uL (1.8-8.9); NEUTROPHILS % (AUTO) 51.6 % (43.0-81.0); PLATELET COUNT (AUTO) 155 K/uL (150-450); WHITE BLOOD COUNT (AUTO) 23.7 K/uL (4.3-11.0)
--- NOTE | 2022-01-18 06:55 | NUR ---
MS RN CLOSING NOTE pt in bed AA/O x 1-2, with periods of confusion. On room air, breathing evenly and unlabored. No SOB/ distress noted. IV access on RFA 20G SL, intact and patent.all meds given as order. Gardiner catheter in place draining to a diana colored urine .needs attended.Safety precautions in place: bed in low, locked position; siderails up x 2; call light within reach. Will endorsed to next shift.
--- NOTE | 2022-01-18 07:50 | NUR ---
MS RN OPENING NOTES RECEIVED PATIENT IN BED, AWAKE, A/O X3. PATIENT ON ROOM AIR; BREATHING HEAVY BECAUSE OF PAIN IN THE RIGHT SHOULDER. PATIENT COMPLAINING OF PAIN 9 OUT OF 10. WILL ADMINISTER PAIN MEDICATION SCHEDULED. IV ACCESS IN THE RFA G # 20 PRESENT AND INTACT; SL. RIGHT ARM IN SLING. SAFETY PRECAUTIONS IN PLACE; BED IN LOW POSITION AND LOCKED, RAILS UP X2, CALL LIGHT WITHIN REACH. WILL CONTINUE TO MONITOR PATIENT.
[2022-01-18 08:00] VITALS: BP 134/71
--- NOTE | 2022-01-18 08:06 | NUR ---
MS RN NOTES PATIENT WITH PAIN IN THE RIGHT SHOULDER 9 OUT OF 10; REQUESTING PAIN MEDICATION. PRN MORPHINE ADMINISTERED. WILL REASSESS.
[2022-01-18] MEDS: SEVELAMER CARBONATE 800 MG TABLET PO SCH ×3 (08:12→18:00)
[2022-01-18] MEDS: DOCUSATE SODIUM 100 MG CAPSULE PO SCH (08:12)
[2022-01-18] MEDS: Z GUARD REMEDY 4 OZ OINT TP SCH (08:17)
[2022-01-18 14:25] LABS: BAND % (MANUAL) 1 % (0.0-5.0); LYMPHOCYTES % (MANUAL) 6 % (16-48); METAMYELOCYTES % 1 % (0-0); MONOCYTES % (MANUAL) 37 % (0-11.0); NEUTROPHILS % (MANUAL) 55 (42-76)
--- NOTE | 2022-01-18 19:02 | NUR ---
MS RN CLOSING NOTES PATIENT REMAINS IN BED, ASLEEP. PATIENT ON ROOM AIR; BREATHING EVEN AND UNLABORED DURING THE SHIFT. PAIN TREATED WITH PRN PAIN MEDICATION. IV ACCESS IN THE RFA G # 20 PRESENT AND INTACT; SL. RIGHT ARM IN SLING. ALL NEEDS ATTENDED DURING THE DAY. SAFETY PRECAUTIONS IN PLACE; BED IN LOW POSITION AND LOCKED, RAILS UP X2, CALL LIGHT WITHIN REACH. WILL ENDORSE TO GOLF COURSE KEEPER NURSE FOR SELENA.
[2022-01-18 20:00] VITALS: BP 113/50
[2022-01-18] MEDS: *INSULIN REGULAR(HUMULIN R)HUM 100 UNIT/ML VIAL SQ PRN (21:28)
--- NOTE | 2022-01-18 21:29 | NUR ---
ACCU CHECK Bld glucose 122mg/dl. Held insulin per level ordered.
--- NOTE | 2022-01-19 05:59 | NUR ---
END OF SHIFT REPORT Patient is A/O x3. Right shoulder with arm sling in placed, denies pain. Left pelvis incision clean with steri strip, no new drainage. Afebrile during the shift. IV RFA g20 intact. Coccyx/buttocks discoloration, protect with Mepilex foam. Wound consult, will endorse to oncoming RN. Hunt pending.
[2022-01-19] MEDS: INSULIN REGULAR, HUMAN 100 UNIT/ML 3 ML VIAL SQ PRN (06:26)
[2022-01-19] MEDS: BLOOD SUGAR DIAGNOSTIC 1 EACH STRIP VI SCH ×4 (06:26→22:06)
--- NOTE | 2022-01-19 06:28 | NUR ---
ACCU CHECK Bld glucose 69mg/dl, repeat test showed 77mg/dl. Held insulin per level ordered.
--- NOTE | 2022-01-19 07:45 | NUR ---
RN MS OPENING NOTES PATIENT RECEIVED IN BED, AWAKE, A/O X3. PT C/O OF RIGHT SHOULDER PAIN UPON ASSESSMENT, WITH 9/10 PAIN LEVEL. AFFECTED RIGHT ARM REMAINS IN SLING TO PREVENT FURTHER INJURY. IV ACCESS PATENT. SAFETY PRECAUTIONS IN PLACE; BED IN LOW POSITION AND LOCKED, RAILS UP X2, CALL LIGHT WITHIN REACH. WILL CONTINUE TO MONITOR.
[2022-01-19] MEDS: MORPHINE SULFATE INJ 2 MG/ML DISP.SYRIN IV PRN (07:55)
[2022-01-19] MEDS: SEVELAMER CARBONATE 800 MG TABLET PO SCH ×3 (08:15→17:37)
[2022-01-19] MEDS: DOCUSATE SODIUM 100 MG CAPSULE PO SCH (08:15)
[2022-01-19] MEDS: Z GUARD REMEDY 4 OZ OINT TP PRN (08:21)
[2022-01-19] MEDS: Z GUARD REMEDY 4 OZ OINT TP SCH (09:31)
[2022-01-19 09:35] LABS: BASOPHILS % (AUTO) 0.1 % (0.0-2.0); HEMATOCRIT 25 % (39-51); LYMPHOCYTES # (AUTO) 0.9 K/uL (0.8-4.8); LYMPHOCYTES % (AUTO) 4.1 % (20.0-44.0); MEAN CORPUSCULAR HGB CONC 33 g/dl (31.0-36.0); MEAN CORPUSCULAR VOLUME 95 fL (80-96); MONOCYTES # (AUTO) 8.4 K/uL (0.1-1.30); MONOCYTES % (AUTO) 39.9 % (2.0-12.0); NEUTROPHILS # (AUTO) 11.8 K/uL (1.8-8.9); NEUTROPHILS % (AUTO) 55.9 % (43.0-81.0); PLATELET COUNT (AUTO) 176 K/uL (150-450); RED BLOOD CELL COUNT(AUTO) 2.57 MIL/uL (4.5-6.0); WHITE BLOOD COUNT (AUTO) 21.1 K/uL (4.3-11.0)
[2022-01-19 09:45] LABS: CALCIUM, SERUM 8.2 mg/dL (8.5-10.1); CARBON DIOXIDE 25 mmol/L (21-32); CHLORIDE 99 mmol/L (98-107); CREATININE 4.9 mg/dL (0.6-1.3); GLUCOSE 97 mg/dL (74-106); MAGNESIUM 2.1 mg/dL (1.8-2.4); PHOSPHORUS 5.2 mg/dL (2.5-4.9); POTASSIUM 4.4 mmol/L (3.5-5.1); SODIUM SERUM 135 mmol/L (136-145); UREA NITROGEN, BLOOD 39 mg/dL (7-18)
[2022-01-19 10:21] LABS: BILIRUBIN,URINE SMALL (NEGATIVE); COLOR,URINE YELLOW (YELLOW); LEUKOCYTE ESTERASE ,URINE NEGATIVE (NEGATIVE); NITRITE, URINE NEGATIVE (NEGATIVE); PROTEIN,URINE 100 mg/dl (NEGATIVE); UGLUCOSE NEGATIVE (NEGATIVE); UROBILINOGEN,URINE 0.2 EU/dL (0.2)
[2022-01-19 12:39] LABS: BACTERIA,URINE None seen /HPF (None Seen); SQUAMOUS EPITHELIAL CELL,UR Few /HPF (None Seen); WBC,URINE 0-2 /HPF (0-3)
[2022-01-19] MEDS: ALBUMIN 25% 25 GM in PREMIX 1 EA IV PRN (13:55)
[2022-01-19] MEDS ORDERED: ALBUMIN 25% 25 GM in PREMIX 1 EA IV PRN (14:00)
--- NOTE | 2022-01-19 18:37 | NUR ---
MS RN CLOSING NOTES PATIENT REMAINED IN BED THROUGHOUT SHIFT WITH INTERMITTENT EPISODES OF SLEEPING. NO S/SX OF DISTRESS OR SOB. C/O OF PAIN TO AFFECTED RIGHT SHOULDER EARLY IN SHIFT, HOWEVER RECEIVED PRN MORPHINE FOR PAIN. MEDICATION ADMINISTRATION EFFECTIVE, PATIENT NO LONGER C/O PAIN ON SHIFT. RECEIVED 3 HOURS OF BEDSIDE DIALYSIS ON SHIFT. TOLERATED WELL. REMAINS ON ROOM AIR. IV ACCESS TO RFA REMAINS PATENT AND INTACT. RIGHT ARM REMAINS IN SLING TO PREVENT FURTHER INJURY TO AFFECTED SHOULDER. SAFETY PRECAUTIONS REMAIN IN PLACE WITH BED IN LOWEST POSITION AND LOCKED, SIDERAILS UP X2, & CALL LIGHT WITHIN REACH. WILL CONT TO MONITOR.
[2022-01-19 20:00] VITALS: BP 109/47
--- NOTE | 2022-01-19 20:00 | NUR ---
MS RN NOTES RECEIVED ON BED A/O X2,ABLE TO MAKE NEEDS KNOWN,ABAD CATH IN PLACE DRAINING MONCHO COLOR URINE OUTPUT.S/F FALL FROM HOME,SUSTAINED FRACTURE ON RIGHT SHOULDER,SLING IN USED.SALINE LOCK RIGHT FOREARM INTACT AND PATENT,LEFT UPPER ARM SHNT FOR HD ACCESS.DENIES DISCOMFORTS AT THE MOMENT,CALL LIGHT IN REACH,NEEDS ANTICIPATED.
--- NOTE | 2022-01-19 22:00 | NUR ---
MS RN NOTES ACCU-CHECK BLOOD SUGAR CHECK 107.NO INSULIN COVERAGE.
[2022-01-20 06:28] LABS: BASOPHILS # (AUTO) 0.1 K/uL (0.0-0.2); BASOPHILS % (AUTO) 0.3 % (0.0-2.0); EOSINOPHILS % (AUTO) 0.2 % (0.0-6.0); HEMATOCRIT 24 % (39-51); HEMOGLOBIN 7.7 g/dL (13.5-17.5); LYMPHOCYTES # (AUTO) 1.3 K/uL (0.8-4.8); MEAN CORPUSCULAR HGB CONC 33 g/dl (31.0-36.0); MEAN CORPUSCULAR VOLUME 94 fL (80-96); MONOCYTES # (AUTO) 9.9 K/uL (0.1-1.30); MONOCYTES % (AUTO) 51.9 % (2.0-12.0); NEUTROPHILS # (AUTO) 7.7 K/uL (1.8-8.9); NEUTROPHILS % (AUTO) 40.6 % (43.0-81.0); PLATELET COUNT (AUTO) 201 K/uL (150-450)
[2022-01-20] MEDS: BLOOD SUGAR DIAGNOSTIC 1 EACH STRIP VI SCH ×4 (06:47→21:46)
--- NOTE | 2022-01-20 06:47 | NUR ---
MS RN NOTES FAIRLY RESTED AT NIGHT,NO COMPLAINT OF PAIN,MORNING CARE RENDERED BY JENNIFFER VAZQUEZ EMPTIED 450ML,NO BM.CALL LIGHT IN REACH,NEEDS ATTENDED.
[2022-01-20] MEDS: SEVELAMER CARBONATE 800 MG TABLET PO SCH ×3 (07:26→17:25)
[2022-01-20 07:31] LABS: CALCIUM, SERUM 8.3 mg/dL (8.5-10.1); CARBON DIOXIDE 27 mmol/L (21-32); CHLORIDE 100 mmol/L (98-107); CREATININE 3.8 mg/dL (0.6-1.3); GLUCOSE 92 mg/dL (74-106); MAGNESIUM 2.1 mg/dL (1.8-2.4); PHOSPHORUS 3.3 mg/dL (2.5-4.9); SODIUM SERUM 136 mmol/L (136-145); UREA NITROGEN, BLOOD 29 mg/dL (7-18)
--- NOTE | 2022-01-20 07:33 | NUR ---
RN MS OPENING NOTES RECEIVED PATIENT AWAKE IN BED. PATIENT IS A/O X3. NO PAIN NOTED. NO SOB NOTED . NO DISTRESS NOTED. AFFECTED RIGHT ARM REMAINS IN SLING TO PREVENT FURTHER INJURY. IV ACCESS RIGHT FA #20 PATENT AND INTACT. ALL SAFETY PRECAUTIONS IN PLACE; BED IN LOW POSITION AND LOCKED, RAILS UP X2, CALL LIGHT AND TABLE WITHIN REACH. WILL CONTINUE TO MONITOR.
[2022-01-20] MEDS: Z GUARD REMEDY 4 OZ OINT TP SCH (08:16)
[2022-01-20] MEDS: DOCUSATE SODIUM 100 MG CAPSULE PO SCH (08:16)
[2022-01-20 10:59] LABS: BAND % (MANUAL) 6 % (0.0-5.0); LYMPHOCYTES % (MANUAL) 16 % (16-48); MONOCYTES % (MANUAL) 32 % (0-11.0); NEUTROPHILS % (MANUAL) 46 (42-76)
--- NOTE | 2022-01-20 19:00 | NUR ---
RN MS CLOSING NOTES PATIENT AWAKE IN BED. PATIENT IS A/O X3. NO PAIN NOTED. NO SOB NOTED . NO DISTRESS NOTED. AFFECTED RIGHT ARM REMAINS IN SLING TO PREVENT FURTHER INJURY. IV ACCESS RIGHT FA #20 PATENT AND INTACT. ALL DUE MEDS GIVEN ORDERED.ALL SAFETY PRECAUTIONS IN PLACE; BED IN LOW POSITION AND LOCKED, RAILS UP X2, CALL LIGHT AND TABLE WITHIN REACH. WILL ENDORSE FOR SELENA.
--- NOTE | 2022-01-20 19:30 | NUR ---
MS RN NOTES RECEIVED LAYING ON BED WITH HOB ELEVATED,BREATHING REGULAR,NOT IN ANY FORM OF DISTRESS,WITH RIGHT FOREARM SALINE LOCK FOR FOR MEDS,LEFT UPPER ARM AV SHUNT FOR HD ACCESS.SLING IN USED ON RIGHT ARM,SUPPORT FOR RIGHT SHOULDER FRACTURE..DENIES DISCOMFORTS AT THE MOMENT,CALL LIGHT IN REACH,NEEDS ANTICIPATED.
[2022-01-20 20:00] VITALS: BP 115/50
--- NOTE | 2022-01-20 22:00 | NUR ---
MS RN NOTES ACCU-CHECK BLOOD SUGAR CHECK 99,NO INSULIN COVERAGE.
[2022-01-21] MEDS: HYDROCODONE/APAP 5/325MG TABLET PO PRN (00:59)
--- NOTE | 2022-01-21 00:59 | NUR ---
MS RN NOTES C/O RIGHT SHOULDER PAIN 5/10 PN PAIN SCALE,NORCO 5/325MG,1 TAB PO GIVEN ORDERED.
[2022-01-21] MEDS: BLOOD SUGAR DIAGNOSTIC 1 EACH STRIP VI SCH ×4 (06:15→22:09)
--- NOTE | 2022-01-21 06:15 | NUR ---
MS RN NOTES ACCU-CHECK BLOOD SUGAR CHECK 76,PINEAPPLE JUICE WITH SUGAR GIVEN.ALERT,ABLE TO FOLLOW INSTRUCTIONS
--- NOTE | 2022-01-21 06:22 | NUR ---
MS RN NOTES ON BED,SLEEPING,AROUSABLE TO VERBAL STIMULI.PAIN MANAGEMENT EFFECTIVE,IN NO ACUTE DISTRESS.
--- NOTE | 2022-01-21 07:30 | NUR ---
RN OPENING NOTES: RECEIVED PATIENT IN BED AWAKE, A/O X3 BAHRAINI SPEAKING. DENIES PAIN AT THIS TIME. ON ROOM AIR, NO DISTRESS OR SHORTNESS OF BREATH NOTED. IV ACCESS RFA #20G SALINE LOCKED, INTACT, PATENT AND FLUSHING WELL. NOTED WITH RIGHT ARM SLING. PATIENT HAVE A ABAD CATHETER, IN PLACE AND DRAINING YELLOW COLORED URINE WELL VIA GRAVITY. FALL AND SAFETY MEASURES MAINTAINED BED ALARM ON BED IN LOW AND LOCK POSITION, CALL LIGHT AND TABLE WITHIN EASY REACH, SIDE RAILS UP X2. WILL CONTINUE TO MONITOR.
[2022-01-21 08:00] VITALS: BP 116/60
[2022-01-21] MEDS: DOCUSATE SODIUM 100 MG CAPSULE PO SCH (09:28)
[2022-01-21] MEDS: SEVELAMER CARBONATE 800 MG TABLET PO SCH ×3 (09:28→17:23)
[2022-01-21] MEDS: Z GUARD REMEDY 4 OZ OINT TP SCH (09:29)
--- NOTE | 2022-01-21 10:11 | NUR ---
WOUND CARE CONSULT: PT SEEN FOR EVALUATION OF BUTTOCKS DISCOLORATION. SOME DARK DISCOLORATION NOTED TO BILATERAL BUTTOCKS WITHOUT TENDERNESS, DRAINAGE OR ERYTHEMA. THERE IS RT BUTTOCK RAISED AREA WHICH WAS NOTED TO BE PRESENT ON ADMISSION AND WAS EXAMINED BY HOSPITALIST PREVIOUSLY. RT BUTTOCK RAISED AREA HAS NO DRAINAGE, ERYTHEMA OR TENDERNESS. RECOMMENDATIONS MADE FOR SKIN PROTECTION. DISCUSSED WITH NURSING STAFF AND ACTIVE DIRECTORY ENGINEER. IN AGREEMENT WITH PLAN OF CARE.
--- NOTE | 2022-01-21 11:00 | NUR ---
RN NOTES: SEEN AND EXAMINED BY MS HONG (WOUND NURSE), RECOMMENDED TO SHIFT BED TO ISOFLEX BED, TURNING AND REPOSITIONING AND OFFLOADING. APPLIED LARGE MEFILEX ON SACRUM NOTED WITH DISCOLORATION.
[2022-01-21 11:35] LABS: BASOPHILS % (AUTO) 0.2 % (0.0-2.0); EOSINOPHILS % (AUTO) 0.2 % (0.0-6.0); HEMATOCRIT 24 % (39-51); HEMOGLOBIN 7.8 g/dL (13.5-17.5); LYMPHOCYTES # (AUTO) 1.2 K/uL (0.8-4.8); MEAN CORPUSCULAR HGB CONC 33 g/dl (31.0-36.0); MEAN CORPUSCULAR VOLUME 94 fL (80-96); MONOCYTES # (AUTO) 5.5 K/uL (0.1-1.30); MONOCYTES % (AUTO) 41.1 % (2.0-12.0); NEUTROPHILS # (AUTO) 6.6 K/uL (1.8-8.9); NEUTROPHILS % (AUTO) 49.5 % (43.0-81.0); PLATELET COUNT (AUTO) 226 K/uL (150-450); RED BLOOD CELL COUNT(AUTO) 2.51 MIL/uL (4.5-6.0); WHITE BLOOD COUNT (AUTO) 13.4 K/uL (4.3-11.0)
[2022-01-21] MEDS: INSULIN REGULAR, HUMAN 100 UNIT/ML 3 ML VIAL SQ PRN (11:56)
[2022-01-21 12:00] LABS: CALCIUM, SERUM 8.3 mg/dL (8.5-10.1); CARBON DIOXIDE 25 mmol/L (21-32); CHLORIDE 99 mmol/L (98-107); CREATININE 4.7 mg/dL (0.6-1.3); GLUCOSE 96 mg/dL (74-106); MAGNESIUM 2.2 mg/dL (1.8-2.4); PHOSPHORUS 4.3 mg/dL (2.5-4.9); POTASSIUM 4.5 mmol/L (3.5-5.1); SODIUM SERUM 134 mmol/L (136-145); UREA NITROGEN, BLOOD 40 mg/dL (7-18)
--- NOTE | 2022-01-21 12:00 | NUR ---
RN NOTES: PATIENT PLACED IN A ISOFLEX BED.
[2022-01-21 12:30] LABS: BAND % (MANUAL) 2 % (0.0-5.0); LYMPHOCYTES % (MANUAL) 8 % (16-48); MONOCYTES % (MANUAL) 39 % (0-11.0); NEUTROPHILS % (MANUAL) 51 (42-76)
[2022-01-21 16:00] VITALS: BP 117/60
--- NOTE | 2022-01-21 18:59 | NUR ---
RN CLOSING NOTES: PATIENT IN BED AWAKE, A/O X3 CITIZEN OF [place] SPEAKING. DENIES PAIN AT THIS TIME. ON ROOM AIR, NO DISTRESS OR SHORTNESS OF BREATH NOTED. IV ACCESS RFA #20G SALINE LOCKED, INTACT, PATENT AND FLUSHING WELL. NOTED WITH RIGHT ARM SLING. PATIENT HAVE A ABAD CATHETER, IN PLACE AND DRAINING YELLOW COLORED URINE WELL VIA GRAVITY. FALL AND SAFETY MEASURES MAINTAINED BED ALARM ON BED IN LOW AND LOCK POSITION, CALL LIGHT AND TABLE WITHIN EASY REACH, SIDE RAILS UP X2. WILL CONTINUE TO MONITOR. WILL ENDORSE TO HEAD BELLHOP CAPTAIN NURSE FOR CONTINUITY OF CARE.
--- NOTE | 2022-01-21 19:20 | NUR ---
RN opening notes Pt is laying in bed comfortably watching TV. Pt is alert and orientedX2. On room air. No SOB. No S/S of distress noted. QUAN AV shunt is inplaced. RFA # 20 is intact and SL. Gardiner cath is inplaced and draining yellow urine. R arm sling is inplaced. Safety precautions is maintained. Bed at low position, brakes locked, side rails upX2, hob elevated, bed alarm is on and call light is within reach. Will continue to monitor.
[2022-01-21 20:00] VITALS: BP 106/75
[2022-01-21] MEDS: *INSULIN REGULAR(HUMULIN R)HUM 100 UNIT/ML VIAL SQ PRN (22:10)
--- NOTE | 2022-01-22 06:40 | NUR ---
RN closing notes Pt is resting in bed comfortably. Pt is alert and orientedX2. On room air. No SOB. No S/S of distress noted. QUAN AV shunt is inplaced. RFA # 20 is intact and SL. VS is stable. Routine meds were given as ordered. Gardiner cath is inplaced and draining yellow urine 60 ml. R arm sling is inplaced. Kept Pt clean, dry and comfortable. Safety precautions is maintained. Bed at low position, brakes locked, side rails upX2, hob elevated, bed alarm is on and call light is within reach. Will endorse to am nurse for SELENA.
[2022-01-22] MEDS: BLOOD SUGAR DIAGNOSTIC 1 EACH STRIP VI SCH ×4 (06:52→21:37)
[2022-01-22] MEDS: INSULIN REGULAR, HUMAN 100 UNIT/ML 3 ML VIAL SQ PRN (06:53)
[2022-01-22 06:56] LABS: CARBON DIOXIDE 27 mmol/L (21-32); CHLORIDE 98 mmol/L (98-107); CREATININE 5.1 mg/dL (0.6-1.3); GLUCOSE 103 mg/dL (74-106); MAGNESIUM 2.3 mg/dL (1.8-2.4); PHOSPHORUS 4.4 mg/dL (2.5-4.9); POTASSIUM 4.4 mmol/L (3.5-5.1); SODIUM SERUM 132 mmol/L (136-145); UREA NITROGEN, BLOOD 43 mg/dL (7-18)
[2022-01-22 06:58] LABS: BASOPHILS # (AUTO) 0.1 K/uL (0.0-0.2); BASOPHILS % (AUTO) 0.5 % (0.0-2.0); EOSINOPHILS % (AUTO) 0.2 % (0.0-6.0); HEMATOCRIT 24 % (39-51); LYMPHOCYTES # (AUTO) 1.4 K/uL (0.8-4.8); LYMPHOCYTES % (AUTO) 9.7 % (20.0-44.0); MEAN CORPUSCULAR HGB CONC 33 g/dl (31.0-36.0); MEAN CORPUSCULAR VOLUME 95 fL (80-96); MONOCYTES % (AUTO) 41.2 % (2.0-12.0); NEUTROPHILS % (AUTO) 48.4 % (43.0-81.0); PLATELET COUNT (AUTO) 268 K/uL (150-450); RED BLOOD CELL COUNT(AUTO) 2.56 MIL/uL (4.5-6.0); WHITE BLOOD COUNT (AUTO) 14.6 K/uL (4.3-11.0)
--- NOTE | 2022-01-22 07:30 | NUR ---
RN OPENING NOTES RECEIVED PATIENT IN BED AWAKE, A/O X3 [place] SPEAKING. EVEN AND UNLABORED BREATHING ON RA. IV ACCESS RFA G#20 SALINE LOCKED, INTACT, PATENT AND FLUSHING WELL. RIGHT ARM SLING IN PLACE. ABAD CATHETER, IN PLACE AND DRAINING YELLOW COLORED URINE WELL VIA GRAVITY. FALL AND SAFETY MEASURES IN PLACE. WILL CONTINUE TO MONITOR.
[2022-01-22 08:00] VITALS: BP 136/71
[2022-01-22] MEDS: HYDROCODONE/APAP 5/325MG TABLET PO PRN ×3 (08:03→18:09)
[2022-01-22] MEDS: DOCUSATE SODIUM 100 MG CAPSULE PO SCH (08:03)
[2022-01-22] MEDS: SEVELAMER CARBONATE 800 MG TABLET PO SCH ×3 (08:03→17:31)
[2022-01-22] MEDS: Z GUARD REMEDY 4 OZ OINT TP SCH (08:31)
[2022-01-22] MEDS: ALBUMIN 25% 25 GM in PREMIX 1 EA IV PRN (09:33)
--- NOTE | 2022-01-22 10:30 | NUR ---
RN NOTES HD DONE TODAY WITH NO OUTPUT. BLOOD FILTERED.
[2022-01-22 10:43] LABS: BAND % (MANUAL) 1 % (0.0-5.0); LYMPHOCYTES % (MANUAL) 16 % (16-48); METAMYELOCYTES % 3 % (0-0); MONOCYTES % (MANUAL) 24 % (0-11.0); MYELOCYTES % 1 % (0-0); NEUTROPHILS % (MANUAL) 55 (42-76)
[2022-01-22 16:00] VITALS: BP 106/53
--- NOTE | 2022-01-22 18:30 | NUR ---
RN NOTES ABAD CATH OUTPUT 300ML, CLEAR YELLOW URINE.
--- NOTE | 2022-01-22 19:05 | NUR ---
RN NOTES PATIENT IN BED AWAKE. NO COMPLAINTS VERBALIZED AT THIS TIME. SAFETY PRECAUTIONS IN PLACE. ENDORSED REPORT TO BECKY FOR SELENA.
[2022-01-22 20:00] VITALS: BP 104/52
--- NOTE | 2022-01-22 20:01 | NUR ---
RN OPENING NOTE PATIENT AWAKE IN BED. A/OX2. NO S/S OF DISTRESS, BREATHING W/O DIFFICULTY ON RM AIR. RFA #20 SL INTACT AND PATENT. SAFETY MEASURES IN PLACE: BED LOCKED, AT LOWEST POSITION, RAILS UP X2, CALL HUITRON WITHIN REACH. WILL CONTINUE TO MONITOR PATIENT.
[2022-01-22] MEDS: *INSULIN REGULAR(HUMULIN R)HUM 100 UNIT/ML VIAL SQ PRN (21:44)
[2022-01-23] MEDS: BLOOD SUGAR DIAGNOSTIC 1 EACH STRIP VI SCH ×4 (06:34→22:25)
[2022-01-23] MEDS: INSULIN REGULAR, HUMAN 100 UNIT/ML 3 ML VIAL SQ PRN (06:35)
--- NOTE | 2022-01-23 06:57 | NUR ---
RN CLOSING NOTE PATIENT IS ASLEEP IN BED. A/OX2. NO S/S OF DISTRESS, BREATHING W/O DIFFICULTY ON ROOM AIR. RFA #20 SL INTACT AND PATENT. SAFETY MEASURES IN PLACE: BED LOCKED, AT LOWEST POSITION, RAILS UP X2, CALL HUITRON WITHIN REACH. REPORT ENDORSED TO AND ACKNOWLEDGED BY DAY SHIFT NURSE FOR SELENA.
[2022-01-23 07:16] LABS: BASOPHILS # (AUTO) 0.1 K/uL (0.0-0.2); BASOPHILS % (AUTO) 0.3 % (0.0-2.0); EOSINOPHILS % (AUTO) 0.1 % (0.0-6.0); HEMATOCRIT 24 % (39-51); LYMPHOCYTES # (AUTO) 1.2 K/uL (0.8-4.8); LYMPHOCYTES % (AUTO) 6.7 % (20.0-44.0); MEAN CORPUSCULAR HGB CONC 33 g/dl (31.0-36.0); MEAN CORPUSCULAR VOLUME 94 fL (80-96); MONOCYTES # (AUTO) 8.2 K/uL (0.1-1.30); MONOCYTES % (AUTO) 45.4 % (2.0-12.0); NEUTROPHILS # (AUTO) 8.6 K/uL (1.8-8.9); NEUTROPHILS % (AUTO) 47.5 % (43.0-81.0); PLATELET COUNT (AUTO) 261 K/uL (150-450); RED BLOOD CELL COUNT(AUTO) 2.57 MIL/uL (4.5-6.0); WHITE BLOOD COUNT (AUTO) 18.1 K/uL (4.3-11.0)
--- NOTE | 2022-01-23 07:30 | NUR ---
RN OPENING NOTE PATIENT RECEIVED IN BED AND RESTING. NO S/SX OF SOB, DISTRESS OR PAIN OBSERVED OR REPORTED. IV ACCESS SITE TO RFA INTACT AND PATENT. AV SHUNT TO QUAN SHOWS NO SIGNS OF TRAUMA OR BLEEDING. SAFETY MEASURES IN PLACE WITH BED IN LOWEST POSITION, LOCKED & SIDERAILS UP X2. CALL LIGHT WITHIN REACH. WILL CONT TO MONITOR Addendum: 01/23/22 at 0930 by JAMIE BROWN RN RN OPENING NOTE PATIENT RECEIVED IN BED AND RESTING. NO S/SX OF SOB, DISTRESS OR PAIN OBSERVED OR REPORTED. IV ACCESS SITE TO RFA INTACT AND PATENT. AV SHUNT TO QUAN SHOWS NO SIGNS OF TRAUMA OR BLEEDING. F/C INTACT AND FLOWING WELL. SAFETY MEASURES IN PLACE WITH BED IN LOWEST POSITION, LOCKED & SIDERAILS UP X2. CALL LIGHT WITHIN REACH. WILL CONT TO MONITOR
[2022-01-23 07:47] LABS: CALCIUM, SERUM 8.2 mg/dL (8.5-10.1); CARBON DIOXIDE 26 mmol/L (21-32); CHLORIDE 98 mmol/L (98-107); CREATININE 3.7 mg/dL (0.6-1.3); GLUCOSE 85 mg/dL (74-106); POTASSIUM 4.3 mmol/L (3.5-5.1); SODIUM SERUM 133 mmol/L (136-145); UREA NITROGEN, BLOOD 29 mg/dL (7-18)
[2022-01-23 07:55] LABS: BAND % (MANUAL) 3 % (0.0-5.0); LYMPHOCYTES % (MANUAL) 7 % (16-48); MONOCYTES % (MANUAL) 31 % (0-11.0); NEUTROPHILS % (MANUAL) 59 (42-76)
[2022-01-23 08:00] VITALS: BP 114/50
[2022-01-23] MEDS: DOCUSATE SODIUM 100 MG CAPSULE PO SCH (09:00)
[2022-01-23] MEDS: SEVELAMER CARBONATE 800 MG TABLET PO SCH ×3 (09:03→17:11)
[2022-01-23] MEDS: Z GUARD REMEDY 4 OZ OINT TP PRN ×2 (09:15→09:18)
[2022-01-23] MEDS: Z GUARD REMEDY 4 OZ OINT TP SCH (09:20)
--- NOTE | 2022-01-23 15:21 | NUR ---
SPOKE WITH PATIENT SON VIA TELEPHONE REGARDING VERBAL CONSENT FOR PATIENT FOR UPCOMING SCHEDULED SURGICAL PROCEDURE. SON STATED HIS SISTER WAS IN ROUTE TO HOSPITAL FACILITY TO VISIT PATIENT AND CAN GIVE WET SIGNATURE ON FORMS. WILL FOLLOW-UP.
[2022-01-23 16:00] VITALS: BP 118/52
[2022-01-23] MEDS ORDERED: ANESTHESIA TRAY IN PYXIS 1 EA TRAY MC ONE (17:19)
--- NOTE | 2022-01-23 18:23 | NUR ---
PATIENT REMAINED IN BED THROUGHOUT SHIFT. NO DISTRESS, SOB, OR PAIN OBSERVED OR REPORTED. PATIENT COMPLIANT AND COOPERATIVE WITH ALL MEDICATION ADMINISTRATION AND CARE GIVEN. IV ACCESS TO RFA REMAINED PATENT AND FLUSHING WITH NO S/SX OF INFILTRATION. LEFT UPPER AV SHUNT REMAINED FREE OF TRAUMA OR BLEEDING. TOLERATED ALL MEALS OK. BLOOD GLUCOSE LEVELS STABLE WITH NO S/SX OF HYPOGLYCEMIA. ABAD CATHETER REMAINS INTACT AND FLOWING WELL. CONSENT FOR SCHEDULED PROCEDURE ON 01/24/22 SIGNED, PREPARED AND PLACED IN PATIENT CHART. SAFETY MEASURES IN PLACE WITH BED IN LOWEST POSITION, LOCKED & CALL LIGHT WITHIN REACH. WILL CONT TO MONITOR. Addendum: 01/23/22 at 1825 by JAMIE BROWN RN RN CLOSING NOTE PATIENT REMAINED IN BED THROUGHOUT SHIFT. NO DISTRESS, SOB, OR PAIN OBSERVED OR REPORTED. PATIENT COMPLIANT AND COOPERATIVE WITH ALL MEDICATION ADMINISTRATION AND CARE GIVEN. IV ACCESS TO RFA REMAINED PATENT AND FLUSHING WITH NO S/SX OF INFILTRATION. LEFT UPPER AV SHUNT REMAINED FREE OF TRAUMA OR BLEEDING. TOLERATED ALL MEALS OK. BLOOD GLUCOSE LEVELS STABLE WITH NO S/SX OF HYPOGLYCEMIA. ABAD CATHETER REMAINS INTACT AND FLOWING WELL. CONSENT FOR SCHEDULED PROCEDURE ON 01/24/22 SIGNED, PREPARED AND PLACED IN PATIENT CHART. SAFETY MEASURES IN PLACE WITH BED IN LOWEST POSITION, LOCKED & CALL LIGHT WITHIN REACH. WILL CONT TO MONITOR.
--- NOTE | 2022-01-23 19:30 | NUR ---
MS RN OPENING NOTE RECEIVED PT IN BED, AWAKE. A/O X 2. IRISH SPEAKING ONLY. FAMILY ON BEDSIDE. CURRENTLY ON RA, TOLERATING WELL WITH NO S/SX OF ACUTE DISTRESS NOTED AT THIS TIME. IV ACCESS NOTED IN RFA #20G SL AND UQAN AV SHUNT. INTACT AND PATENT. NO SIGNS OF TRAUMA OR BLEEDING NOTED AT THIS TIME. F/C IN PLACE, DRAINING YELLOW COLORED URINE VIA GRAVITY. KEPT HOB ELEVATED. ALL SAFETY MEASURES IN PLACE: BED LOCKED IN LOWEST POSITION, LOCKED & SIDE RAILS UP X2. CALL LIGHT WITHIN REACH. WILL CONTINUE TO MONITOR THE PT.
[2022-01-23 20:00] VITALS: BP_SYST 103; BP_SYST 105; BP_DIAS 56; BP_DIAS 57
[2022-01-23] MEDS: *INSULIN REGULAR(HUMULIN R)HUM 100 UNIT/ML VIAL SQ PRN (22:26)
--- NOTE | 2022-01-23 22:40 | NUR ---
RN NOTE PT'S BS IS 119 PER SLIDING SCALE. NO INSULIN COVERAGE. PT IS ALERT, AWAKE AND COMFORTABLE IN BED.
--- NOTE | 2022-01-24 03:43 | NUR ---
RN NOTE TURNED AND REPOSITIONED PT. NEEDS ATTENDED. WILL CONTINUE TO MONITOR.
--- NOTE | 2022-01-24 06:19 | NUR ---
RN NOTE PT REMAINED STABLE THROUGHOUT THE NIGHT. NO SIGNIFICANT CHANGES NOTED. PT RESTING IN BED COMFORTABLY. NPO STATUS SINCE MIDNIGHT. SURGERY OF THE RIGHT HUMERUS SCHEDULED TODAY. WILL ENDORSE TO AM SHIFT NURSE FOR SELENA.
[2022-01-24 07:08] LABS: BASOPHILS # (AUTO) 0.1 K/uL (0.0-0.2); BASOPHILS % (AUTO) 0.4 % (0.0-2.0); EOSINOPHILS % (AUTO) 0.1 % (0.0-6.0); HEMATOCRIT 23 % (39-51); HEMOGLOBIN 7.7 g/dL (13.5-17.5); LYMPHOCYTES # (AUTO) 1.6 K/uL (0.8-4.8); LYMPHOCYTES % (AUTO) 8.7 % (20.0-44.0); MEAN CORPUSCULAR HGB CONC 33 g/dl (31.0-36.0); MEAN CORPUSCULAR VOLUME 94 fL (80-96); MONOCYTES # (AUTO) 8.9 K/uL (0.1-1.30); MONOCYTES % (AUTO) 47.8 % (2.0-12.0); PLATELET COUNT (AUTO) 283 K/uL (150-450); RED BLOOD CELL COUNT(AUTO) 2.48 MIL/uL (4.5-6.0); WHITE BLOOD COUNT (AUTO) 18.7 K/uL (4.3-11.0)
--- NOTE | 2022-01-24 07:30 | NUR ---
MS RN OPENING NOTE RECEIVED PT IN BED, AWAKE. A/O X 2. OCCITAN SPEAKING WITH LITTLE VIETNAMESE. PT ON RA, TOLERATING WELL WITH NO S/SX OF SOB/ ACUTE DISTRESS NOTED AT THIS TIME. IV ACCESS AT RFA #20G SL AND QUAN AV SHUNT. INTACT AND PATENT. NO SIGNS OF TRAUMA OR BLEEDING NOTED AT THIS TIME. F/C IN PLACE, DRAINING YELLOW COLORED URINE VIA GRAVITY. NPO FOR AM PENDING SURGERY. KEPT HOB ELEVATED. ALL SAFETY MEASURES IN PLACE: BED LOCKED IN LOWEST POSITION, LOCKED & SIDE RAILS UP X2. CALL LIGHT WITHIN REACH. WILL CONTINUE TO MONITOR THE PT.
[2022-01-24 07:33] LABS: CALCIUM, SERUM 8.3 mg/dL (8.5-10.1); CARBON DIOXIDE 25 mmol/L (21-32); CHLORIDE 97 mmol/L (98-107); CREATININE 4.6 mg/dL (0.6-1.3); GLUCOSE 92 mg/dL (74-106); POTASSIUM 4.4 mmol/L (3.5-5.1); SODIUM SERUM 131 mmol/L (136-145); UREA NITROGEN, BLOOD 36 mg/dL (7-18)
[2022-01-24 08:00] VITALS: BP 131/56
[2022-01-24] MEDS: Z GUARD REMEDY 4 OZ OINT TP SCH (09:00)
--- NOTE | 2022-01-24 09:10 | NUR ---
MS RN NOTE WITH AVAILABLE 2 UNITS PRBC VERIFIED WITH BLOOD BANK TECH MS BENNETT. AWARE OF LATEST LAB WORK UP. PATIENT KEPT ON NPO FOR SCHEDULED OR TODAY.
[2022-01-24] MEDS: DOCUSATE SODIUM 100 MG CAPSULE PO SCH (09:48)
[2022-01-24] MEDS: SEVELAMER CARBONATE 800 MG TABLET PO SCH ×3 (09:48→18:56)
[2022-01-24] MEDS: BLOOD SUGAR DIAGNOSTIC 1 EACH STRIP VI SCH ×4 (09:50→21:47)
[2022-01-24] MEDS ORDERED: HYDROMORPHONE INJ 2 MG/ML DISP.SYRIN ONE (12:51)
[2022-01-24] MEDS ORDERED: FENTANYL PF 250MCG/5ML AMPUL ONE (12:51)
[2022-01-24] MEDS ORDERED: FAMOTIDINE/PF INJ 20 MG/2 ML VIAL IV ONE (12:52)
[2022-01-24] MEDS ORDERED: ROCURONIUM BROMIDE 50 MG/5 ML ONE (12:52)
--- NOTE | 2022-01-24 13:19 | NUR ---
MS RN NOTE PATIENT PICKED UP FOR OR SCHEDULED. IN STABLE CONDITION.
[2022-01-24 15:10] LABS: BAND % (MANUAL) 2 % (0.0-5.0); EOSINOPHILS % (MANUAL) 1 % (0-4); LYMPHOCYTES % (MANUAL) 10 % (16-48); MONOCYTES % (MANUAL) 48 % (0-11.0); NEUTROPHILS % (MANUAL) 39 (42-76)
[2022-01-24] MEDS: Z GUARD REMEDY 4 OZ OINT TP PRN (17:59)
--- NOTE | 2022-01-24 18:00 | NUR ---
MS RN NOTE PATIENT BACK FROM OR. UNABLE TO DO PROCEDURE, UNABLE TO ESTABLISH CENTRAL LINE. PROCEDURE CANCELLED. PATIENT IS ALERT AND ORIENTED X 2-3, IN STABLE CONDITION. NO COMPLAIN OF PAIN.
--- NOTE | 2022-01-24 19:25 | NUR ---
RN OPENING NOTES RECEIVED PT IN BED, AWAKE. AOx2. ON RA AND TOLERATING WELL. NO SOB NOTED. NO S/SX OF RESPIRATORY DISTRESS NOTED. IV ACCESS IN R FA #20G, RLE #22G, AND QUAN AV FISTULA. IV INTACT, PATENT, AND FLUSHING WELL. SAFETY PRECAUTIONS IN PLACE: BED IN LOWEST, LOCKED POSITION, SIDERAILS UPx2, AND BRAKES ON. TABLE AND CALL LIGHT WITHIN REACH. WILL CONTINUE TO MONITOR.
--- NOTE | 2022-01-24 19:26 | NUR ---
MS RN CLOSING NOTE PATIENT IN BED, AWAKE. A/O X 2. PATIENT ON ROOM AIR, TOLERATING WELL WITH NO S/SX OF SOB/ ACUTE DISTRESS NOTED. IV ACCESS AT RFA #20G SL AND QUAN AV SHUNT. INTACT AND PATENT. F/C IN PLACE, DRAINING LIGHT YELLOW COLORED URINE VIA GRAVITY. COMFORT MEASURES PROVIDED. ALL SAFETY MEASURES IN PLACE: BED LOCKED IN LOWEST POSITION, LOCKED & SIDE RAILS UP X2. CALL LIGHT WITHIN REACH. WILL ENDORSE PATIENT FOR CONTINUITY OF CARE.
[2022-01-24 20:00] VITALS: BP 126/66
[2022-01-24] MEDS: HYDROCODONE/APAP 5/325MG TABLET PO PRN (20:39)
--- NOTE | 2022-01-24 20:40 | NUR ---
RN NOTES ADMINISTERED NORCO FORPAIN PER MD ORDER. VS WNL.WILL CONTINUE TO MONITOR.
[2022-01-24] MEDS: *INSULIN REGULAR(HUMULIN R)HUM 100 UNIT/ML VIAL SQ PRN (21:47)
--- NOTE | 2022-01-24 23:52 | NUR ---
RN NOTES DIALYSIS ENDED AT APPROXIMATELY @2340. PER CENTERLESS GRINDER TENDERDANIELLA,1.1 LITERS REMOVED. TOLERATED WELL. PT RESTING IN BED, COMFORTABLY. WILL CONTINUE TO MONITOR.
[2022-01-25 06:47] LABS: BASOPHILS % (AUTO) 0.1 % (0.0-2.0); HEMATOCRIT 23 % (39-51); HEMOGLOBIN 7.5 g/dL (13.5-17.5); LYMPHOCYTES # (AUTO) 1.1 K/uL (0.8-4.8); LYMPHOCYTES % (AUTO) 4.8 % (20.0-44.0); MEAN CORPUSCULAR HGB CONC 33 g/dl (31.0-36.0); MEAN CORPUSCULAR VOLUME 94 fL (80-96); MONOCYTES # (AUTO) 7.7 K/uL (0.1-1.30); MONOCYTES % (AUTO) 33.8 % (2.0-12.0); NEUTROPHILS % (AUTO) 61.3 % (43.0-81.0); PLATELET COUNT (AUTO) 270 K/uL (150-450); RED BLOOD CELL COUNT(AUTO) 2.41 MIL/uL (4.5-6.0); WHITE BLOOD COUNT (AUTO) 22.9 K/uL (4.3-11.0)
--- NOTE | 2022-01-25 06:53 | NUR ---
RN CLOSING NOTES PT IN BED, ASLEEP, AWAKENS TO VERBAL STIMULI. AOx3-4 WITH CONFUSION AND FORGETFULNESS. ON RA AND TOLERATING WELL. NO SOB NOTED. NO S/SX OF RESPIRATORY DISTRESS NOTED. IV ACCESS IN R FA #20G, RLE #22G, AND QUAN AV FISTULA. IV INTACT, PATENT, AND FLUSHING WELL. ALL ORDERS CARRIED OUT. ALL NEEDS MET. PT KEPT CLEAN AND DRY. SAFETY PRECAUTIONS IN PLACE: BED IN LOWEST, LOCKED POSITION, SIDERAILS UPx2, AND BRAKES ON. TABLE AND CALL LIGHT WITHIN REACH. WILL ENDORSE TO ONCOMING SHIFT FOR SELENA.
--- NOTE | 2022-01-25 07:30 | NUR ---
RN MS NOTES PT IN BED, ASLEEP, EASY TO AROUSE, ALERT WITH PERIODS OF BEING FORGETFUL, NO SIGN OF PAIN OR DISTRESS, CALL LIGHT WITHIN REACH, SLING TO RIGHT ARM IN PLACE, F/C DRAINING WELL, KEPT WARM AND COMFORTABLE IN BED.
[2022-01-25 07:42] LABS: CARBON DIOXIDE 26 mmol/L (21-32); CHLORIDE 98 mmol/L (98-107); CREATININE 3.8 mg/dL (0.6-1.3); GLUCOSE 76 mg/dL (74-106); POTASSIUM 4.4 mmol/L (3.5-5.1); SODIUM SERUM 133 mmol/L (136-145); UREA NITROGEN, BLOOD 30 mg/dL (7-18)
[2022-01-25 08:00] VITALS: BP 110/37
[2022-01-25] MEDS: SEVELAMER CARBONATE 800 MG TABLET PO SCH ×3 (08:59→17:44)
[2022-01-25] MEDS: Z GUARD REMEDY 4 OZ OINT TP SCH (09:00)
[2022-01-25] MEDS: DOCUSATE SODIUM 100 MG CAPSULE PO SCH (09:00)
[2022-01-25] MEDS: BLOOD SUGAR DIAGNOSTIC 1 EACH STRIP VI SCH ×4 (09:14→22:25)
[2022-01-25 09:17] LABS: BAND % (MANUAL) 13 % (0.0-5.0); LYMPHOCYTES % (MANUAL) 2 % (16-48); METAMYELOCYTES % 3 % (0-0); MONOCYTES % (MANUAL) 14 % (0-11.0); NEUTROPHILS % (MANUAL) 65 (42-76)
[2022-01-25] MEDS: HYDROCODONE/APAP 5/325MG TABLET PO PRN (13:00)
[2022-01-25 16:00] VITALS: BP 88/49
[2022-01-25 16:01] VITALS: BP 118/44
--- NOTE | 2022-01-25 19:15 | NUR ---
RN CLOSING NOTE PATIENT REMAINED IN BED THROUGHOUT SHIFT. NO DISTRESS OR SOB C/O PAIN TO AFFECTED RIGHT SHOULDER @ 1300. RECEIVED PO PRN NORCO. MEDICATION EFFECTIVE. BS LEVELS STABLE ON SHIFT WITH NO S/SX OF HYPOGLYCEMIA. UP IN BEDSIDE CHAIR X2 ON SHIFT. TOLERATED WELL. IV ACCESS TO RLE PATENT AND FLUSHING WELL WITH NO S/SX OF INFILTRATION. LEFT UPPER AV SHUNT REMAINS FREE OF TRAUMA OR BLEEDING. TOLERATED ALL MEALS OK. ABAD CATHETER REMAINS INTACT AND FLOWING WELL. SAFETY MEASURES IN PLACE WITH BED IN LOWEST POSITION, LOCKED & CALL LIGHT WITHIN REACH. WILL CONT TO MONITOR.
--- NOTE | 2022-01-25 19:40 | NUR ---
MS RN OPENING NOTE PATIENT AWAKE IN BED WITH FAMILY AT BEDSIDE, PT ALERT/ORIENTED X 3, ABLE TO MAKE NEEDS KNOWN, PRIMARILY EGYPTIAN SPEAKING. PATIENT STABLE ON RA, NO S/S OF DISTRESS OR SOB NOTED, BREATHING EVEN AND UNLABORED. ABAD CATH IN PLACE, DRAINING CLEAR YELLOW URINE. IV ACCESS ON RFA AND RLE INTACT AND SALINE LOCKED. QUAN AV FISTULA NOTED. SAFETY MEASURES IN PLACE: CALL LIGHT WITHIN REACH, SIDE RAILS UP X 3, BED LOCKED IN LOWEST POSITION, BED ALARM ON. WILL CONTINUE TO MONITOR PATIENT
[2022-01-25 20:00] VITALS: BP 112/53
[2022-01-25] MEDS: *INSULIN REGULAR(HUMULIN R)HUM 100 UNIT/ML VIAL SQ PRN (22:26)
[2022-01-26] MEDS: HYDROCODONE/APAP 5/325MG TABLET PO PRN (05:32)
--- NOTE | 2022-01-26 07:06 | NUR ---
MS RN CLOSING NOTE PATIENT SLEEPING IN BED, ALERT/ORIENTED X 3, ABLE TO MAKE NEEDS KNOWN, PRIMARILY ARMENIAN SPEAKING. PATIENT STABLE ON RA, NO S/S OF DISTRESS OR SOB NOTED, BREATHING EVEN AND UNLABORED. ABAD CATH IN PLACE, DRAINING CLEAR YELLOW URINE. NO SIGNIFICANT CHANGES THROUGHOUT SHIFT, MEDICATIONS GIVEN ORDERED, PT NEEDS MET THROUGHOUT SHIFT. SAFETY MEASURES IN PLACE: CALL LIGHT WITHIN REACH, SIDE RAILS UP X 3, BED LOCKED IN LOWEST POSITION, BED ALARM ON. WILL CONTINUE TO MONITOR PATIENT
[2022-01-26] MEDS: BLOOD SUGAR DIAGNOSTIC 1 EACH STRIP VI SCH ×4 (08:14→21:55)
--- NOTE | 2022-01-26 08:19 | NUR ---
MS RN OPENING NOTE Patient in bed, awake. A/O x 3, forgetful at times. On room air, breathing evenly and unlabored. No SOB or s/s of distress noted. IV access on RLE #22 SL, intact and patent. QUAN AV fistula noted. Gardiner catheter in place draining to a yellow colored urine. Safety precautions in place: bed in low, locked position; siderails up x 2; call light within reach. Will continue to monitor.
[2022-01-26] MEDS: SEVELAMER CARBONATE 800 MG TABLET PO SCH ×3 (09:35→17:21)
[2022-01-26] MEDS: DOCUSATE SODIUM 100 MG CAPSULE PO SCH (09:35)
[2022-01-26] MEDS: Z GUARD REMEDY 4 OZ OINT TP SCH (09:36)
--- NOTE | 2022-01-26 19:16 | NUR ---
MS RN CLOSING NOTE Patient in bed, awake. A/O x 3, forgetful at times. Stable on room air, breathing evenly and unlabored. No SOB or s/s of distress noted. IV access on RLE #22 SL, intact and patent. QUAN AV fistula noted. Gardiner catheter in place draining to a yellow colored urine with an output of 650 cc. Patient had HD today, 1.7 L out. Due meds given. All needs attended to. Safety precautions in place: bed in low, locked position; siderails up x 2; call light within reach. Will endorse to hourly shift nurse for SELENA.
[2022-01-26 20:00] VITALS: BP_SYST 104; BP_SYST 119; BP_DIAS 46; BP_DIAS 61
--- NOTE | 2022-01-26 20:22 | NUR ---
RN NOTES RECEIVED PATIENT IN BED, ALERT/ORIENTED X3, ON ROOM AIR, NO COMPLAIN OF PAIN, QUAN AV FISTULA, WITH DRESSING, NO BLEEDING. BRUIT AND THRILL NOTED. RIGHT SHOULDER FRACTURE, SWELLING, NWB. ABAD CATHETER IN PLACE, KEPT SAFE, WILL CONTINUE TO MONITOR.
[2022-01-26] MEDS: INSULIN REGULAR, HUMAN 100 UNIT/ML 3 ML VIAL SQ PRN (21:57)
[2022-01-27] MEDS: BLOOD SUGAR DIAGNOSTIC 1 EACH STRIP VI SCH ×4 (06:39→22:12)
[2022-01-27] MEDS: *INSULIN REGULAR(HUMULIN R)HUM 100 UNIT/ML VIAL SQ PRN (06:40)
--- NOTE | 2022-01-27 06:48 | NUR ---
ALERT/ORIENTED X3, ROOM AIR, NO COMPLAIN OF PAIN, QUAN AV FISTULA PATENT, WITH DRESSING NO BLEEDING. ABAD CATHETER IN SITU, RIGHT ARM/SHOULDER WITH SWELLING, NO SURGICAL INTERVENTION PLANNED, CONTINUE PAIN CONTROL, ACCUCHECK, SLIDING SCALE, HD PER NEPHRO.
[2022-01-27 07:33] LABS: MEAN CORPUSCULAR HGB CONC 32 g/dl (31.0-36.0); MEAN CORPUSCULAR VOLUME 95 fL (80-96); RED BLOOD CELL COUNT(AUTO) 2.28 MIL/uL (4.5-6.0)
[2022-01-27 07:35] LABS: CALCIUM, SERUM 8.1 mg/dL (8.5-10.1); CARBON DIOXIDE 26 mmol/L (21-32); CHLORIDE 99 mmol/L (98-107); CREATININE 4.3 mg/dL (0.6-1.3); GLUCOSE 94 mg/dL (74-106); POTASSIUM 4.4 mmol/L (3.5-5.1); SODIUM SERUM 135 mmol/L (136-145); UREA NITROGEN, BLOOD 32 mg/dL (7-18)
--- NOTE | 2022-01-27 07:50 | NUR ---
RN NOTE Patient in bed, asleep. A/O x 3. On room air, breathing evenly and unlabored. No SOB or s/s of distress noted. IV access on RLE #22 SL, intact and patent. Gardiner catheter in place draining to a yellow colored colored urine. Safety precautions in place: bed in low, locked position; siderails up x 2; call light within reach. Will continue to monitor.
[2022-01-27 08:00] VITALS: BP 93/50
--- NOTE | 2022-01-27 08:00 | NUR ---
RN NOTE Received critical value from Alli from lab WBC is 53 and Hgb is 6.8. Dr. Chamberlain notified and ordered a redraw at 1200. Carried out.
[2022-01-27] MEDS: DOCUSATE SODIUM 100 MG CAPSULE PO SCH (09:07)
[2022-01-27] MEDS: SEVELAMER CARBONATE 800 MG TABLET PO SCH ×3 (09:07→18:03)
[2022-01-27 09:08] LABS: WHITE BLOOD COUNT (AUTO) 52.9 K/uL (4.3-11.0)
[2022-01-27 09:09] LABS: HEMOGLOBIN 6.8 g/dL (13.5-17.5)
[2022-01-27 09:10] LABS: HEMATOCRIT 21 % (39-51)
[2022-01-27 09:11] LABS: BASOPHILS % (AUTO) 0.1 % (0.0-2.0); LYMPHOCYTES # (AUTO) 0.3 K/uL (0.8-4.8); LYMPHOCYTES % (AUTO) 0.6 % (20.0-44.0); MONOCYTES # (AUTO) 20.5 K/uL (0.1-1.30); MONOCYTES % (AUTO) 38.7 % (2.0-12.0); NEUTROPHILS # (AUTO) 32.1 K/uL (1.8-8.9); NEUTROPHILS % (AUTO) 60.6 % (43.0-81.0); PLATELET COUNT (AUTO) 273 K/uL (150-450)
[2022-01-27] MEDS: Z GUARD REMEDY 4 OZ OINT TP SCH (09:12)
--- NOTE | 2022-01-27 11:30 | NUR ---
RN NOTE Covid test swab done, sent to lab.
[2022-01-27 12:12] LABS: BAND % (MANUAL) 4 % (0.0-5.0); LYMPHOCYTES % (MANUAL) 3 % (16-48); METAMYELOCYTES % 3 % (0-0); MONOCYTES % (MANUAL) 13 % (0-11.0); MYELOCYTES % 1 % (0-0); NEUTROPHILS % (MANUAL) 76 (42-76)
[2022-01-27 12:54] LABS: BASOPHILS # (AUTO) 0.1 K/uL (0.0-0.2); BASOPHILS % (AUTO) 0.1 % (0.0-2.0); HEMATOCRIT 21 % (39-51); LYMPHOCYTES # (AUTO) 0.5 K/uL (0.8-4.8); MEAN CORPUSCULAR HGB CONC 32 g/dl (31.0-36.0); MEAN CORPUSCULAR VOLUME 96 fL (80-96); NEUTROPHILS # (AUTO) 27.6 K/uL (1.8-8.9); NEUTROPHILS % (AUTO) 59.9 % (43.0-81.0); PLATELET COUNT (AUTO) 250 K/uL (150-450); RED BLOOD CELL COUNT(AUTO) 2.17 MIL/uL (4.5-6.0)
[2022-01-27] MEDS ORDERED: diphenhydrAMINE HCL 50 MG/ML VIAL IV ONE (13:00)
[2022-01-27] MEDS ORDERED: ACETAMINOPHEN 325 MG TABLET PO ONE (13:00)
[2022-01-27 13:27] LABS: HEMOGLOBIN 6.6 g/dL (13.5-17.5); WHITE BLOOD COUNT (AUTO) 46.1 K/uL (4.3-11.0)
[2022-01-27 16:00] VITALS: BP 86/40
--- NOTE | 2022-01-27 16:00 | NUR ---
RN NOTE Redraw results for WBC and Hgb: WBC 46.1, Hgb 6.6. Dr. Chamberlain notified. Dr. Moy ordered to transfuse blood.
--- NOTE | 2022-01-27 17:18 | NUR ---
RN NOTE Called lab to follow up on blood, still not available.
[2022-01-27] MEDS ORDERED: NEPRO VAN 237 ML CAN PO PRN (17:30)
--- NOTE | 2022-01-27 19:33 | NUR ---
MS RN CLOSING NOTE Patient in bed, resting. A/O x 3, forgetful. Stable on room air, breathing evenly and unlabored. No SOB or s/s of distress noted. IV access on RLE #22 SL, intact and patent. Gardiner catheter in place draining to a yellow colored colored urine with an output of 50 cc. Due meds given. All needs attended to. No fver the whole shift. Safety precautions maintained: bed in low, locked position; siderails up x 2; call light within reach. Will endorse to welder 2nd shift nurse for SELENA.
--- NOTE | 2022-01-27 19:45 | NUR ---
MS RN NOTES RECEIVED ON BED A/O X3,BREATHING REGULAR,NOT IN ANY FORM OF DISTRESS,DNR/DNI CODE STATUS WITH ORDER.WITH ABAD CATH PLACE DRAINS MODERATE OUTPUT.WITH RIGHT LEG SALINE LOCK,LEFT ARM AV SHUNT FOR HS ACCESS.LATEST H/H 6.01/15,WILL TRANSFUSE 1 UNIT OF LRBC,AWAITNG CALL FROM BLOOD BANK WHEN BLOOD IS READY.CALL LIGHT IN REACH,NEEDS ANTICIPATED.
[2022-01-27 20:00] VITALS: BP_SYST 125; BP_SYST 155; BP_DIAS 80; BP_DIAS 92
[2022-01-27 21:30] LABS: EOSINOPHILS % (MANUAL) 1 % (0-4); LYMPHOCYTES % (MANUAL) 27 % (16-48); MONOCYTES % (MANUAL) 3 % (0-11.0); NEUTROPHILS % (MANUAL) 69 (42-76)
--- NOTE | 2022-01-27 23:30 | NUR ---
MS RN NOTES FOLLOW UP CALL TO BLOOD BANK IN REGARDS TO AVAILABILITY OF 1 UNIT OF PRBC AND THEY THEY SAID ITS NOT READY YET BECAUSE TYPE AND SCREEN NOT DONE YET.
--- NOTE | 2022-01-28 01:00 | NUR ---
MS RN NOTES INFORMED CHARGE NURSE MADDY THAT BLOOD STILL IS NOT READY AND SHE MADE A FOLLOW UP CALL TO LAB,SPOKE TO MIN AND HE SAYS THE PRESENCE OF ANTIBODIES.HE SAID THEY WILL DRAW BLOOD AGAIN THIS MORNING AND BE SEND OUT TO [facility] FOR FURTHER STUDIES DUE TO THE PRESENCE OF ANTIBODIES.CHARGE NURSE MADDY MADE AWARE.ACCORDING TO MIN,BLOOD MIGHT BE AVAILABLE BEFORE NOONTIME OR EARLY AFTERNOON TODAY.
--- NOTE | 2022-01-28 05:30 | NUR ---
MS RN NOTES ACCU-CHECK BLOOD SUGAR CHECK 99,NO INSULIN COVERAGE.
[2022-01-28] MEDS: BLOOD SUGAR DIAGNOSTIC 1 EACH STRIP VI SCH ×4 (05:34→22:02)
--- NOTE | 2022-01-28 06:40 | NUR ---
MS RN NOTES ON BED SLEEPING,AROUSABLE TO VERBAL STIMULI,PALE LOOKING H/H 6.01/15,AWAITING FOR BLOOD TRANSFUSION,LAB WILL CALL WHEN BLOOD IS AVAILABLE. AVAILABLE.BLOOD SUGAR CONTROLLED.NO DISTRESS.
[2022-01-28 06:58] LABS: BASOPHILS # (AUTO) 0.1 K/uL (0.0-0.2); BASOPHILS % (AUTO) 0.2 % (0.0-2.0); LYMPHOCYTES # (AUTO) 1.2 K/uL (0.8-4.8); LYMPHOCYTES % (AUTO) 3.7 % (20.0-44.0); MEAN CORPUSCULAR HGB CONC 32 g/dl (31.0-36.0); MEAN CORPUSCULAR VOLUME 95 fL (80-96); MONOCYTES # (AUTO) 14.9 K/uL (0.1-1.30); MONOCYTES % (AUTO) 46.9 % (2.0-12.0); NEUTROPHILS # (AUTO) 15.6 K/uL (1.8-8.9); NEUTROPHILS % (AUTO) 49.2 % (43.0-81.0); PLATELET COUNT (AUTO) 217 K/uL (150-450); RED BLOOD CELL COUNT(AUTO) 2.04 MIL/uL (4.5-6.0)
--- NOTE | 2022-01-28 07:10 | NUR ---
MS RN OPENING NOTES: ALERT/ORIENTED X3, ROOM AIR, NO COMPLAIN OF PAIN, QUAN AV FISTULA PATENT, WITH DRESSING NO BLEEDING. ABAD CATHETER IN SITU, RIGHT ARM/SHOULDER WITH SWELLING, NO SURGICAL INTERVENTION PLANNED, CONTINUE PAIN CONTROL, ACCUCHECK, SLIDING SCALE, HD PER NEPHRO.
[2022-01-28 07:38] LABS: CALCIUM, SERUM 8.4 mg/dL (8.5-10.1); CARBON DIOXIDE 28 mmol/L (21-32); CHLORIDE 98 mmol/L (98-107); CREATININE 5.2 mg/dL (0.6-1.3); GLUCOSE 99 mg/dL (74-106); POTASSIUM 4.6 mmol/L (3.5-5.1); SODIUM SERUM 134 mmol/L (136-145); UREA NITROGEN, BLOOD 42 mg/dL (7-18)
[2022-01-28 07:44] LABS: HEMATOCRIT 20 % (39-51); HEMOGLOBIN 6.3 g/dL (13.5-17.5); WHITE BLOOD COUNT (AUTO) 31.8 K/uL (4.3-11.0)
--- NOTE | 2022-01-28 07:49 | NUR ---
RN NOTES: RECEIVED A CALL FROM THE LAB WBC 31, RELAYED TO DR WALSH WHO IS MAKING ROUND WHO SAID IT IS BETTER
[2022-01-28 08:00] VITALS: BP 115/59
[2022-01-28] MEDS: DOCUSATE SODIUM 100 MG CAPSULE PO SCH (08:40)
[2022-01-28] MEDS: Z GUARD REMEDY 4 OZ OINT TP SCH (08:40)
[2022-01-28] MEDS: SEVELAMER CARBONATE 800 MG TABLET PO SCH ×3 (08:40→18:37)
[2022-01-28 10:34] LABS: LYMPHOCYTES % (MANUAL) 6 % (16-48); MONOCYTES % (MANUAL) 28 % (0-11.0); NEUTROPHILS % (MANUAL) 66 (42-76)
[2022-01-28 13:56] VITALS: BP 118/74
[2022-01-28] MEDS ORDERED: diphenhydrAMINE HCL 50 MG/ML VIAL IV ONE (14:00)
[2022-01-28 14:26] VITALS: BP 85/50
[2022-01-28 15:05] VITALS: BP 119/53
[2022-01-28 16:00] VITALS: BP 94/60
[2022-01-28 16:54] VITALS: BP 92/50
--- NOTE | 2022-01-28 17:00 | NUR ---
PT COMPLETED BLOOD TRANSFUSION, NO ADVERSE REACTION NOTED,NO FEVER.WILL MONITOR
[2022-01-28 18:23] LABS: HEMATOCRIT 28 % (39-51); HEMOGLOBIN 9.4 g/dL (13.5-17.5); MEAN CORPUSCULAR HGB CONC 33 g/dl (31.0-36.0); MEAN CORPUSCULAR VOLUME 95 fL (80-96); PLATELET COUNT (AUTO) 233 K/uL (150-450); RED BLOOD CELL COUNT(AUTO) 2.98 MIL/uL (4.5-6.0); WHITE BLOOD COUNT (AUTO) 8.2 K/uL (4.3-11.0)
--- NOTE | 2022-01-28 19:30 | NUR ---
MS RN CLOSING NOTE Patient in bed, resting. A/O x 3, forgetful. Stable on room air, breathing evenly and unlabored. No SOB or s/s of distress noted. IV access on RLE #22 SL, intact and patent. Gardiner catheter in place draining to a yellow colored colored urine with an output of 200 cc. Due meds given. All needs attended to. No fver the whole shift. Safety precautions maintained: bed in low, locked position; siderails up x 2; call light within reach. Will endorse to mobile security architect nurse for SELENA.
--- NOTE | 2022-01-28 19:40 | NUR ---
MS/RN OPENING NOTE RECEIVED PATIENT SLEEPING IN BED. ALERT AND ORIENTED X 3. PRIMARILY GREENLANDIC SPEAKING. DENIES PAIN AT THIS TIME. CONTINUES ON ROOM AIR WITH NO S/SX OF RESPIRATORY DISTRESS NOTED. IV ACCESS TO RIGHT LEG #22G INTACT, PATENT AND SALINE LOCKED. ABAD CATHETER IN PLACE DRAINING CLEAR, YELLOW URINE TO GRAVITY. CALL LIGHT WITHIN REACH. ASPIRATION, FALL AND SAFETY PRECAUTIONS MAINTAINED. ALL NEEDS ATTENDED TO AT THIS TIME.
--- NOTE | 2022-01-28 20:30 | NUR ---
MS/RN NOTE PATIENT HAS A POSITIVE PRELIMINARY BLOOD CULTURE SHOWING GRAM NEGATIVE RODS. PATIENT IS NOT ON ABX AT THIS TIME. NOTIFIED CLINICAL TRIALS NURSE EPIFANIO PERRY - AWAITING RESPONSE.
--- NOTE | 2022-01-29 06:40 | NUR ---
MS/RN CLOSING NOTE PATIENT CURRENTLY SLEEPING IN BED. ALERT AND ORIENTED X 3. PRIMARILY AMERICAN SPEAKING. DENIES PAIN AT THIS TIME. CONTINUES ON ROOM AIR WITH NO S/SX OF RESPIRATORY DISTRESS NOTED. IV ACCESS TO RIGHT LEG #22G INTACT, PATENT AND SALINE LOCKED. ABAD CATHETER IN PLACE DRAINING CLEAR, YELLOW URINE TO GRAVITY. CALL LIGHT WITHIN REACH. ASPIRATION, FALL AND SAFETY PRECAUTIONS MAINTAINED. WILL ENDORSE PLAN OF CARE TO ONCOMING SHIFT RN.
[2022-01-29 07:12] LABS: BASOPHILS % (AUTO) 0.1 % (0.0-2.0); HEMATOCRIT 23 % (39-51); HEMOGLOBIN 7.4 g/dL (13.5-17.5); LYMPHOCYTES # (AUTO) 1.3 K/uL (0.8-4.8); LYMPHOCYTES % (AUTO) 3.8 % (20.0-44.0); MEAN CORPUSCULAR HGB CONC 33 g/dl (31.0-36.0); MEAN CORPUSCULAR VOLUME 94 fL (80-96); MONOCYTES % (AUTO) 50.9 % (2.0-12.0); NEUTROPHILS % (AUTO) 45.2 % (43.0-81.0); PLATELET COUNT (AUTO) 193 K/uL (150-450); RED BLOOD CELL COUNT(AUTO) 2.43 MIL/uL (4.5-6.0)
--- NOTE | 2022-01-29 07:20 | NUR ---
RN OPENING NOTES RECEIVED PATIENT IN BED. A/O X3. PRIMARILY KOREAN SPEAKING. DENIES PAIN AT THIS TIME. CONTINUES ON RA WITH NO S/SX OF RESPIRATORY DISTRESS NOTED. IV ACCESS TO RIGHT LEG G#22 INTACT, PATENT AND SALINE LOCKED. ABAD CATHETER IN PLACE DRAINING CLEAR, YELLOW URINE BY GRAVITY. CALL LIGHT WITHIN REACH. ASPIRATION, FALL AND SAFETY PRECAUTIONS IN PLACE. WILL CONTINUE TO MONITOR PATIENT
[2022-01-29] MEDS: BLOOD SUGAR DIAGNOSTIC 1 EACH STRIP VI SCH ×4 (07:32→21:22)
[2022-01-29 07:53] LABS: CALCIUM, SERUM 8.6 mg/dL (8.5-10.1); CARBON DIOXIDE 26 mmol/L (21-32); CHLORIDE 96 mmol/L (98-107); CREATININE 6.1 mg/dL (0.6-1.3); GLUCOSE 108 mg/dL (74-106); SODIUM SERUM 133 mmol/L (136-145); UREA NITROGEN, BLOOD 51 mg/dL (7-18)
[2022-01-29 08:08] LABS: WHITE BLOOD COUNT (AUTO) 35.3 K/uL (4.3-11.0)
[2022-01-29] MEDS: DOCUSATE SODIUM 100 MG CAPSULE PO SCH (08:23)
[2022-01-29] MEDS: SEVELAMER CARBONATE 800 MG TABLET PO SCH ×3 (08:23→17:12)
[2022-01-29] MEDS: Z GUARD REMEDY 4 OZ OINT TP SCH (08:30)
[2022-01-29 11:49] LABS: BAND % (MANUAL) 6 % (0.0-5.0); LYMPHOCYTES % (MANUAL) 25 % (16-48); MONOCYTES % (MANUAL) 17 % (0-11.0); NEUTROPHILS % (MANUAL) 52 (42-76)
[2022-01-29] MEDS: MEROPENEM 500 MG in IV NS 0.9% 50 ML IV SCH (13:17)
[2022-01-29] MEDS: ALBUMIN 25% 25 GM in PREMIX 1 EA IV PRN (17:22)
--- NOTE | 2022-01-29 18:00 | NUR ---
RN NOTES PATIENT UNDERGOING HD
--- NOTE | 2022-01-29 18:30 | NUR ---
RN NOTES TOTAL HD OUTPUT= 700ML
--- NOTE | 2022-01-29 18:30 | NUR ---
RN NOTES CONTINUING TO MONITOR BP AND BLOOD SUGAR POST HD
--- NOTE | 2022-01-29 18:50 | NUR ---
RN CLOSING NOTES RECEIVED PATIENT IN BED. A/O X3. PRIMARILY SETSWA[place] SPEAKING. CONTINUES ON RA WITH NO S/SX OF RESPIRATORY DISTRESS NOTED. IV ACCESS TO RIGHT LEG G#22 INTACT, PATENT AND SALINE LOCKED. ABAD CATHETER IN PLACE DRAINING CLEAR, YELLOW URINE BY GRAVITY WITH 100ML OUTPUT DURING DAY SHIFT. CALL LIGHT WITHIN REACH. ASPIRATION, FALL AND SAFETY PRECAUTIONS IN PLACE. STARTED ON ANTIBIOTICS TODAY. BLOOD CULTURES RESULTED AND AWAITING FOR CONSULTATION WITH INFECTIOUS DISEASE. NO FEVERS DURING DAY SHIFT NOTED. WILL ENDORSE TO THE ANGLE DOZER OPERATOR NURSE FOR SELENA
--- NOTE | 2022-01-29 19:20 | NUR ---
RN opening notes Pt is laying in bed comfortably watching TV accompanied by Pt' son. Pt is alert and orientedX3. On room air. No SOB. No S/S of distress noted. QUAN AV shunt is inplaced. IV site at R leg is clean, intact and SL. S/P HD with 700 ml output. Gardiner cath is inplaced and draining yellow urine. R arm sling is inplaced. Safety precautions is maintained. Bed at low position, brakes locked, side rails upX2, hob elevated, bed alarm is on and call light is within reach. Will continue to monitor.
[2022-01-29] MEDS: ACETAMINOPHEN 325 MG TABLET PO PRN (19:54)
[2022-01-29 20:00] VITALS: BP 111/60
[2022-01-29 20:04] VITALS: BP 111/60
--- NOTE | 2022-01-29 20:06 | NUR ---
RN notes Pt is having fever - temp 100.6 F oral. administered tylenol 650 mg/po/prn for fever. Cooling measures applied. Pt's son at the bedside. Will continue to monitor.
--- NOTE | 2022-01-29 21:15 | NUR ---
RN notes Pt's temp is 98.4 F oral.
[2022-01-29] MEDS: *INSULIN REGULAR(HUMULIN R)HUM 100 UNIT/ML VIAL SQ PRN (21:23)
[2022-01-30] MEDS: MEROPENEM 500 MG in IV NS 0.9% 50 ML IV SCH ×2 (01:02→12:37)
[2022-01-30] MEDS: BLOOD SUGAR DIAGNOSTIC 1 EACH STRIP VI SCH ×4 (06:33→21:45)
[2022-01-30] MEDS: INSULIN REGULAR, HUMAN 100 UNIT/ML 3 ML VIAL SQ PRN (06:33)
--- NOTE | 2022-01-30 06:37 | NUR ---
Rn closing notes Pt is resting in bed comfortably. Pt is alert and orientedX3. On room air. No SOB. No S/S of distress noted. QUAN AV shunt is inplaced. Routine meds were given as ordered. IV site at R leg is clean, intact and SL. Gardiner cath is inplaced and draining yellow urine 50ml. R arm sling is inplaced. Kept Pt clean, dry and comfortable. Safety precautions is maintained. Bed at low position, brakes locked, side rails upX2, hob elevated, bed alarm is on and call light is within reach. Will endorse to am nurse for SELENA.
[2022-01-30 06:40] LABS: BASOPHILS # (AUTO) 0.1 K/uL (0.0-0.2); BASOPHILS % (AUTO) 0.2 % (0.0-2.0); HEMATOCRIT 23 % (39-51); HEMOGLOBIN 7.3 g/dL (13.5-17.5); LYMPHOCYTES # (AUTO) 0.7 K/uL (0.8-4.8); LYMPHOCYTES % (AUTO) 2.1 % (20.0-44.0); MEAN CORPUSCULAR HGB CONC 33 g/dl (31.0-36.0); MEAN CORPUSCULAR VOLUME 94 fL (80-96); MONOCYTES # (AUTO) 14.9 K/uL (0.1-1.30); MONOCYTES % (AUTO) 45.6 % (2.0-12.0); NEUTROPHILS # (AUTO) 17.1 K/uL (1.8-8.9); NEUTROPHILS % (AUTO) 52.1 % (43.0-81.0); PLATELET COUNT (AUTO) 148 K/uL (150-450); RED BLOOD CELL COUNT(AUTO) 2.38 MIL/uL (4.5-6.0)
[2022-01-30 06:43] LABS: WHITE BLOOD COUNT (AUTO) 32.8 K/uL (4.3-11.0)
[2022-01-30 07:55] LABS: CALCIUM, SERUM 8.4 mg/dL (8.5-10.1); CARBON DIOXIDE 25 mmol/L (21-32); CHLORIDE 99 mmol/L (98-107); CREATININE 4.6 mg/dL (0.6-1.3); GLUCOSE 99 mg/dL (74-106); MAGNESIUM 2.3 mg/dL (1.8-2.4); PHOSPHORUS 2.1 mg/dL (2.5-4.9); POTASSIUM 4.8 mmol/L (3.5-5.1); SODIUM SERUM 134 mmol/L (136-145); UREA NITROGEN, BLOOD 35 mg/dL (7-18)
--- NOTE | 2022-01-30 08:06 | NUR ---
RN OPENING NOTE PATIENT AWAKE IN BED RESTING, A/O X 4. NO S/S OF PAIN NOTED AT THIS TIME. ON 2L OXYGEN, NO DISTRESS OR SHORTNESS OF BREATH NOTED. IV ACCESS, R LEG #22G, INTACT PATENT AND FLUSHING WELL. PATIENT HAVE A ABAD CATHETER, IN PLACE AND DRAINING WELL. FALL AND SAFETY MEASURES IN PLACE, BED ALARM ON, BED IN LOW AND LOCK POSITION, CALL LIGHT AND TABLE WITHIN EASY REACH, SIDE RAILS UP X2. WILL CONTINUE TO MONITOR.
[2022-01-30] MEDS: SEVELAMER CARBONATE 800 MG TABLET PO SCH ×3 (09:18→17:23)
[2022-01-30] MEDS: Z GUARD REMEDY 4 OZ OINT TP SCH (09:18)
[2022-01-30] MEDS: DOCUSATE SODIUM 100 MG CAPSULE PO SCH (09:18)
[2022-01-30] MEDS: HYDROCODONE/APAP 5/325MG TABLET PO PRN (16:36)
--- NOTE | 2022-01-30 19:10 | NUR ---
RN NOTES RECEIVED REPORT FROM MORNING RN. PATIENT IN BED A/O X 4 ABLE TO MAKE NEEDS KNOWN. ON OXYGEN INHALATION AT 2LPM TOLERATING WELL SATING 98%. NO SOB NO DISTRESS NOTED AT THIS TIME. WITH IV ACCESS AT R HAND G 22 PATENT FLUSHES WELL. WITH R ARM SLING IN PLACE, WITH L UA AV FISTULA. WITH ABAD CATHETER CONNECTED TO URINE BAG DRAINING YELLOWISH URINE. VITAL SIGNS TAKEN AND RECORDED. AFEBRILE. ALL SAFETY MEASURES IN PLACE AT ALL TIMES. BED ON LOWEST POSITION AND LOCKED. CALL LIGHT WITHIN REACH. WILL CLOSELY MONITOR THE PATIENT
--- NOTE | 2022-01-30 19:46 | NUR ---
RN CLOSING NOTE PATIENT AWAKE IN BED RESTING, A/O X 4. NO S/S OF PAIN NOTED AT THIS TIME. ON 2L OXYGEN, NO DISTRESS OR SHORTNESS OF BREATH NOTED. IV ACCESS, R LEG #22G, INTACT PATENT AND FLUSHING WELL. PATIENT HAVE A ABAD CATHETER, IN PLACE AND DRAINING WELL, OUT PUT 100ML. ALL SCHEDULE MEDICATIONS ADMINISTERED. PATIENT WAS TURNED AND REPOSITIONED PER PROTOCOL. FALL AND SAFETY MEASURES IN PLACE, BED ALARM ON, BED IN LOW AND LOCK POSITION, CALL LIGHT AND TABLE WITHIN EASY REACH, SIDE RAILS UP X2. WILL ENDORSE TO ELEVATED GUARD.
[2022-01-30 20:00] VITALS: BP 155/109
--- NOTE | 2022-01-30 20:22 | NUR ---
MS/TELE/RN RECEIVED PATIENT LYING IN BED AWAKE, ALERT, ORIENTED, APPEARS COMFORTABLE, NO SIGNS OF DISTRESS NOTED, CALL LIGHT IN REACH, ALL NEEDS ATTENDED, FALL PRECAUTIONS PER PROTOCOL IMPLEMENTED, ENCOURAGED TO CALL USING THE CALL LIGHT FOR ASSISTANCE, VERBALISED UNDERSTANDING, WILL MONITOR.
--- NOTE | 2022-01-30 21:46 | NUR ---
RN NOTES BS 89 MG/DL NO COVERAGE GIVEN. WILL CONTINUE TO MONITOR THE PATIENT
[2022-01-31] MEDS: BLOOD SUGAR DIAGNOSTIC 1 EACH STRIP VI SCH ×4 (06:23→21:36)
--- NOTE | 2022-01-31 06:56 | NUR ---
RN NOTES PATIENT REMAINS STABLE THE WHOLE SHIFT NO SIGNIFICANT CHANGES. STILL WITH IV ACCESS AT R HAND # 22 PATENT FLUSHES WELL. WITH AV FISTULA AT L UA + THRILL AND BRUIT. ABAD PATENT DRAINING WELL WITH 100 CC URINE OUTPUT. ALL MEDS GIVEN ORDERED. FOR HEMODIALYSIS TODAY. PATIENT REFUSED TO BE CHANGED. RISK AND BENEFITS EXPLAINED STILL REFUSED. ALL SAFETY MEASURES IN PLACE AT ALL TIMES, HOB ELEVATED. CALL LIGHT WITHIN REACH. FREQUENT VISUAL MONITORING RENDRED. WILL ENDORSED TO MORNING SHIFT FOR SELENA
[2022-01-31 07:09] LABS: BASOPHILS # (AUTO) 0.1 K/uL (0.0-0.2); BASOPHILS % (AUTO) 0.3 % (0.0-2.0); HEMATOCRIT 23 % (39-51); HEMOGLOBIN 7.3 g/dL (13.5-17.5); LYMPHOCYTES # (AUTO) 1.5 K/uL (0.8-4.8); LYMPHOCYTES % (AUTO) 6.2 % (20.0-44.0); MEAN CORPUSCULAR HGB CONC 32 g/dl (31.0-36.0); MEAN CORPUSCULAR VOLUME 96 fL (80-96); MONOCYTES # (AUTO) 12.7 K/uL (0.1-1.30); MONOCYTES % (AUTO) 53.5 % (2.0-12.0); NEUTROPHILS # (AUTO) 9.5 K/uL (1.8-8.9); PLATELET COUNT (AUTO) 155 K/uL (150-450); RED BLOOD CELL COUNT(AUTO) 2.36 MIL/uL (4.5-6.0); WHITE BLOOD COUNT (AUTO) 23.7 K/uL (4.3-11.0)
--- NOTE | 2022-01-31 07:45 | NUR ---
RN OPENING NOTE PATIENT AWAKE IN BED RESTING, A/O X 4. NO S/S OF PAIN NOTED AT THIS TIME. ON 2L OXYGEN, NO DISTRESS OR SHORTNESS OF BREATH NOTED. IV ACCESS, R HAND #22G, INTACT PATENT AND FLUSHING WELL. PATIENT HAVE A ABAD CATHETER, IN PLACE AND DRAINING WELL. FALL AND SAFETY MEASURES IN PLACE, BED ALARM ON, BED IN LOW AND LOCK POSITION, CALL LIGHT AND TABLE WITHIN EASY REACH, SIDE RAILS UP X2. WILL CONTINUE TO MONITOR.
[2022-01-31 07:50] LABS: CALCIUM, SERUM 8.2 mg/dL (8.5-10.1); CARBON DIOXIDE 27 mmol/L (21-32); CHLORIDE 98 mmol/L (98-107); CREATININE 5.3 mg/dL (0.6-1.3); GLUCOSE 81 mg/dL (74-106); MAGNESIUM 2.4 mg/dL (1.8-2.4); PHOSPHORUS 3.2 mg/dL (2.5-4.9); POTASSIUM 4.8 mmol/L (3.5-5.1); SODIUM SERUM 135 mmol/L (136-145); UREA NITROGEN, BLOOD 47 mg/dL (7-18)
[2022-01-31 08:00] VITALS: BP 98/53
[2022-01-31] MEDS: DOCUSATE SODIUM 100 MG CAPSULE PO SCH (09:00)
[2022-01-31] MEDS: SEVELAMER CARBONATE 800 MG TABLET PO SCH ×3 (09:22→17:31)
[2022-01-31] MEDS: Z GUARD REMEDY 4 OZ OINT TP SCH (09:23)
[2022-01-31 10:11] LABS: BAND % (MANUAL) 3 % (0.0-5.0); LYMPHOCYTES % (MANUAL) 7 % (16-48); METAMYELOCYTES % 1 % (0-0); MONOCYTES % (MANUAL) 38 % (0-11.0); NEUTROPHILS % (MANUAL) 51 (42-76)
[2022-01-31] MEDS: MEROPENEM 500 MG in IV NS 0.9% 50 ML IV SCH ×3 (13:40)
[2022-01-31] MEDS: ALBUMIN 25% 25 GM in PREMIX 1 EA IV PRN (13:41)
[2022-01-31] MEDS: HYDROCODONE/APAP 5/325MG TABLET PO PRN (17:38)
--- NOTE | 2022-01-31 19:00 | NUR ---
RN CLOSING NOTE PATIENT AWAKE IN BED RESTING, A/O X 4. NO S/S OF PAIN NOTED AT THIS TIME. ON 2L OXYGEN, NO DISTRESS OR SHORTNESS OF BREATH NOTED. IV ACCESS, R HAND #22G, INTACT PATENT AND FLUSHING WELL. PATIENT HAVE A ABAD CATHETER, IN PLACE AND DRAINING WELL, OUT PUT 100ML. ALL SCHEDULE MEDICATIONS ADMINISTERED. PATIENT WAS TURNED AND REPOSITIONED PER PROTOCOL. FALL AND SAFETY MEASURES IN PLACE, BED ALARM ON, BED IN LOW AND LOCK POSITION, CALL LIGHT AND TABLE WITHIN EASY REACH, SIDE RAILS UP X2. WILL ENDORSE TO POLE INSPECTOR.
--- NOTE | 2022-01-31 19:30 | NUR ---
MS RN OPENING NOTE RECEIVED PATIENT AWAKE IN BED. A/O X 4 AND ABLE TO MAKE NEEDS KNOWN. NO SOB OR S/S OF RESPIRATORY DISTRESS. ON 2L OXYGEN, SATURATING WELL. BREATHING EVEN AND UNLABORED. IV ACCESS R HAND #22G, INTACT PATENT AND FLUSHING WELL. WITH ABAD CATHETER IN PLACE AND DRAINING WELL. SAFETY PRECAUTIONS IN PLACE. BED IN LOWEST LOCKED POSITION, HOB ELEVATED, SIDE RAILS UP X3, AND CALL LIGHT AND TABLE WITHIN REACH. ALL NEEDS MET AT THIS TIME.
[2022-01-31 20:00] VITALS: BP 98/74
[2022-02-01] MEDS: MEROPENEM 500 MG in IV NS 0.9% 50 ML IV SCH ×2 (00:21→12:23)
[2022-02-01] MEDS: BLOOD SUGAR DIAGNOSTIC 1 EACH STRIP VI SCH ×4 (06:35→22:00)
--- NOTE | 2022-02-01 06:51 | NUR ---
MS RN CLOSING NOTE PATIENT AWAKE IN BED. A/O X 4 AND ABLE TO MAKE NEEDS KNOWN. NO SOB OR S/S OF RESPIRATORY DISTRESS. ON 2L OXYGEN, SATURATING WELL. BREATHING EVEN AND UNLABORED. IV ACCESS R HAND #22G, INTACT PATENT AND FLUSHING WELL. WITH ABAD CATHETER IN PLACE AND DRAINING WELL, DRAINED 150 ML THIS SHIFT. ALL DUE MEDS GIVEN ORDERED. SAFETY PRECAUTIONS IN PLACE AT ALL TIMES. BED IN LOWEST LOCKED POSITION, HOB ELEVATED, SIDE RAILS UP X3, AND CALL LIGHT AND TABLE WITHIN REACH. ALL NEEDS MET AT THIS TIME AND WILL ENDORSE TO ONCOMING SHIFT FOR SELENA.
--- NOTE | 2022-02-01 07:22 | NUR ---
RN OPENING NOTES RECEIVED PATIENT IN BED, AWAKE, A/O X4, VERBALLY RESPONSIVE. NO SIGNS OF ACUTE DISTRESS NOTED. CURRENTLY ON ROOM AIR, NO SOB NOTED, BREATHING EVEN AND UNLABORED. NOTED WITH IV ACCESS ON RIGHT HAND #22G, INTACT AND PATENT, SALINE LOCKED. ALSO WITH LEFT UPPER ARM AV FISTULA, NO BLEEDING NOTED. DENIES ANY PAIN AT THIS TIME. SAFETY MEASURE PROVIDED. BED IN LOWEST AND LOCKED POSITION, SIDE RAILS UP, CALL LIGHT PLACED WITHIN EASY REACH. WILL CONTINUE TO MONITOR PATIENT.
[2022-02-01] MEDS: SEVELAMER CARBONATE 800 MG TABLET PO SCH ×3 (08:04→17:14)
[2022-02-01] MEDS: Z GUARD REMEDY 4 OZ OINT TP SCH (08:08)
[2022-02-01] MEDS: DOCUSATE SODIUM 100 MG CAPSULE PO SCH (08:08)
[2022-02-01 15:48] VITALS: BP 126/53
--- NOTE | 2022-02-01 15:55 | NUR ---
RN NOTES BLOOD TRANSFUSION OF I UNIT PRBS STARTED. WILL MONITOR FOR ADVERSE REACTION.
[2022-02-01 16:10] VITALS: BP 118/50
[2022-02-01 16:40] VITALS: BP 93/61
[2022-02-01 17:40] VITALS: BP 96/63
[2022-02-01 18:35] VITALS: BP 98/75
--- NOTE | 2022-02-01 18:35 | NUR ---
RN NOTES BLOOD TRANSFUSION FINISHED @1830, NO ADVERSE REACTION NOTED. VITAL SIGNS TAKEN, STABLE AND RECORDED.
[2022-02-01] MEDS: HYDROCODONE/APAP 5/325MG TABLET PO PRN (18:39)
--- NOTE | 2022-02-01 18:54 | NUR ---
RN CLOSING NOTES PATIENT IN BED, AWAKE, A/O X4, VERBALLY RESPONSIVE. NO SIGNS OF ACUTE DISTRESS NOTED. STABLE ON ROOM AIR, NO SOB NOTED, BREATHING EVEN AND UNLABORED. WITH IV ACCESS ON RIGHT HAND #22G, INTACT AND PATENT, SALINE LOCKED. S/P BLOOD TRANSFUSION, NO ADVERSE REACTION NOTED. WITH LEFT UPPER ARM AV FISTULA, NO BLEEDING NOTED. ALL DUE MEDS GIVEN, TOLERATED WELL. SAFETY MEASURE MAINTAINED. BED IN LOWEST AND LOCKED POSITION, SIDE RAILS UP, CALL LIGHT PLACED WITHIN EASY REACH. WILL ENDORSE TO NEXT SHIFT FOR CONTINUITY OF CARE.
--- NOTE | 2022-02-01 19:10 | NUR ---
RECEIVED PATIENT IN BED, AWAKE, NO S/S OF DISTRESS NOTED. NO COMPLAIN OF PAIN. CALL LIGHT WITHIN REACH. BED IN LOWEST AND LOCKED POSITION. BED ALARM ON. PATIENT'S FAMILY MEMBER AT THE BEDSIDE, STATES THAT THE PATIENT REFUSED TO USE THE SLING. WITH ABAD CATHETER INTACT.A/O X2.
[2022-02-01 20:00] VITALS: BP 116/61
[2022-02-01] MEDS: *INSULIN REGULAR(HUMULIN R)HUM 100 UNIT/ML VIAL SQ PRN (22:33)
--- NOTE | 2022-02-01 22:34 | NUR ---
blood sugar= 107, no insulin given.
[2022-02-02] MEDS: MEROPENEM 500 MG in IV NS 0.9% 50 ML IV SCH ×2 (01:13→12:30)
--- NOTE | 2022-02-02 05:58 | NUR ---
MS CLOSING NOTES: PATIENT IN BED, SLEEPING, EASILY AROUSABLE, NO S/S OF DISTRESS NOTED. ENCOURAGED THE PATIENT TO PUT THE ARM SLING BACK, PATIENT AGREED. PLACED THE ARM SLING ON THE RIGHT ARM.NOTED THE SACROCOCCYX AREA HAS OPEN SKIN, TOOK PICTURE OF THE AREA, CLEANSED WITH NS, PAT DRY, AND COVERED WITH OPTIFOAM DRESSING. TURNED THE PATIENT AND OFFLOADED THE AREA. WOUND CONSULT WILL BE ORDERED. BED ALARM ON. BED IN LOWEST AND LOCKED POSITION.
[2022-02-02] MEDS: BLOOD SUGAR DIAGNOSTIC 1 EACH STRIP VI SCH ×4 (06:50→22:00)
[2022-02-02] MEDS: INSULIN REGULAR, HUMAN 100 UNIT/ML 3 ML VIAL SQ PRN (06:50)
--- NOTE | 2022-02-02 06:53 | NUR ---
BLOOD SUGAR CHECKED=83, NO INSULIN GIVEN.
[2022-02-02] MEDS: Z GUARD REMEDY 4 OZ OINT TP PRN (06:58)
[2022-02-02 08:00] VITALS: BP 137/71
[2022-02-02] MEDS: SEVELAMER CARBONATE 800 MG TABLET PO SCH ×3 (09:06→17:39)
[2022-02-02] MEDS: Z GUARD REMEDY 4 OZ OINT TP SCH (09:06)
[2022-02-02] MEDS: DOCUSATE SODIUM 100 MG CAPSULE PO SCH (09:06)
[2022-02-02] MEDS: ALBUMIN 25% 25 GM in PREMIX 1 EA IV PRN (15:00)
[2022-02-02 15:10] LABS: BASOPHILS # (AUTO) 0.1 K/uL (0.0-0.2); BASOPHILS % (AUTO) 0.3 % (0.0-2.0); EOSINOPHILS % (AUTO) 0.1 % (0.0-6.0); HEMATOCRIT 27 % (39-51); LYMPHOCYTES # (AUTO) 1.2 K/uL (0.8-4.8); LYMPHOCYTES % (AUTO) 4.5 % (20.0-44.0); MEAN CORPUSCULAR HGB CONC 34 g/dl (31.0-36.0); MEAN CORPUSCULAR VOLUME 95 fL (80-96); MONOCYTES # (AUTO) 6.9 K/uL (0.1-1.30); MONOCYTES % (AUTO) 25.8 % (2.0-12.0); NEUTROPHILS # (AUTO) 18.5 K/uL (1.8-8.9); NEUTROPHILS % (AUTO) 69.3 % (43.0-81.0); PLATELET COUNT (AUTO) 196 K/uL (150-450); RED BLOOD CELL COUNT(AUTO) 2.84 MIL/uL (4.5-6.0); WHITE BLOOD COUNT (AUTO) 26.7 K/uL (4.3-11.0)
[2022-02-02 15:28] LABS: CALCIUM, SERUM 7.9 mg/dL (8.5-10.1); CARBON DIOXIDE 29 mmol/L (21-32); CHLORIDE 104 mmol/L (98-107); CREATININE 3.2 mg/dL (0.6-1.3); GLUCOSE 108 mg/dL (74-106); MAGNESIUM 2.2 mg/dL (1.8-2.4); PHOSPHORUS 1.6 mg/dL (2.5-4.9); POTASSIUM 3.6 mmol/L (3.5-5.1); SODIUM SERUM 140 mmol/L (136-145); UREA NITROGEN, BLOOD 25 mg/dL (7-18)
[2022-02-02 16:00] VITALS: BP 121/60
[2022-02-02 16:13] LABS: LYMPHOCYTES % (MANUAL) 8 % (16-48); MONOCYTES % (MANUAL) 10 % (0-11.0); NEUTROPHILS % (MANUAL) 82 (42-76)
[2022-02-02] MEDS: HYDROCODONE/APAP 5/325MG TABLET PO PRN (17:21)
--- NOTE | 2022-02-02 19:20 | NUR ---
MS RN OPENING NOTES: RECEIVED PATIENT IN BED, AWAKE, A/O X4. NO S/S OF DISTRESS NOTED. NO COMPLAIN OF PAIN. CALL LIGHT WITHIN REACH. BED ALARM ON. BED IN LOWEST AND LOCKED POSITION.HOB ELEVATED. RIGHT ARM WITH SLING, ELEVATED RIGHT ARM WITH PILLOW. WITH ABAD CATHETER INTACT, DRAINING CLEAR YELLOW URINE.
--- NOTE | 2022-02-02 19:30 | NUR ---
RN CLOSING NOTES PATIENT IN BED, RESTING, A/O X4, VERBALLY RESPONSIVE. NO SIGNS OF ACUTE DISTRESS NOTED. STABLE ON ROOM AIR, NO SOB NOTED, BREATHING EVEN AND UNLABORED. WITH IV ACCESS ON RIGHT HAND #[id number], INTACT AND PATENT, SALINE LOCKED. WITH LEFT UPPER ARM AV FISTULA, NO BLEEDING NOTED. ALL DUE MEDS GIVEN, TOLERATED WELL. S/P HEMODIALYSIS WITH 100OML FLUID REMOVED. SAFETY MEASURES MAINTAINED. BED IN LOWEST AND LOCKED POSITION, SIDE RAILS UP, CALL LIGHT PLACED WITHIN EASY REACH. WILL ENDORSE TO NEXT SHIFT FOR CONTINUITY OF CARE.
[2022-02-02 20:00] VITALS: BP 139/47
[2022-02-02] MEDS: *INSULIN REGULAR(HUMULIN R)HUM 100 UNIT/ML VIAL SQ PRN (22:31)
--- NOTE | 2022-02-02 22:32 | NUR ---
BLOOD SUGAR CHECKED= 104, NO INSULIN GIVEN.
[2022-02-03] MEDS: MEROPENEM 500 MG in IV NS 0.9% 50 ML IV SCH ×2 (00:34→14:15)
[2022-02-03] MEDS: BLOOD SUGAR DIAGNOSTIC 1 EACH STRIP VI SCH ×3 (06:52→17:20)
[2022-02-03] MEDS: INSULIN REGULAR, HUMAN 100 UNIT/ML 3 ML VIAL SQ PRN (06:52)
--- NOTE | 2022-02-03 06:52 | NUR ---
blood sugar checked=95, no insulin given.
[2022-02-03 07:52] LABS: BASOPHILS # (AUTO) 0.1 K/uL (0.0-0.2); BASOPHILS % (AUTO) 0.2 % (0.0-2.0); EOSINOPHILS % (AUTO) 0.1 % (0.0-6.0); HEMATOCRIT 29 % (39-51); HEMOGLOBIN 9.2 g/dL (13.5-17.5); LYMPHOCYTES # (AUTO) 1.3 K/uL (0.8-4.8); LYMPHOCYTES % (AUTO) 4.2 % (20.0-44.0); MEAN CORPUSCULAR HGB CONC 32 g/dl (31.0-36.0); MEAN CORPUSCULAR VOLUME 96 fL (80-96); MONOCYTES # (AUTO) 8.2 K/uL (0.1-1.30); NEUTROPHILS % (AUTO) 68.5 % (43.0-81.0); PLATELET COUNT (AUTO) 212 K/uL (150-450)
[2022-02-03 07:58] LABS: WHITE BLOOD COUNT (AUTO) 30.6 K/uL (4.3-11.0)
[2022-02-03 08:01] LABS: CALCIUM, SERUM 8.7 mg/dL (8.5-10.1); CARBON DIOXIDE 27 mmol/L (21-32); CHLORIDE 103 mmol/L (98-107); CREATININE 3.4 mg/dL (0.6-1.3); GLUCOSE 99 mg/dL (74-106); MAGNESIUM 2.3 mg/dL (1.8-2.4); PHOSPHORUS 2.2 mg/dL (2.5-4.9); POTASSIUM 3.6 mmol/L (3.5-5.1); SODIUM SERUM 137 mmol/L (136-145); UREA NITROGEN, BLOOD 26 mg/dL (7-18)
[2022-02-03] MEDS: SEVELAMER CARBONATE 800 MG TABLET PO SCH ×4 (08:21→17:21)
[2022-02-03] MEDS: Z GUARD REMEDY 4 OZ OINT TP SCH (08:21)
[2022-02-03] MEDS: DOCUSATE SODIUM 100 MG CAPSULE PO SCH (08:21)
[2022-02-03] MEDS ORDERED: K PHOS NEUTRAL 250 MG TABLET PO ONE (12:30)
[2022-02-03] MEDS ORDERED: MERO500P IV (13:19)
[2022-02-03] MEDS ORDERED: Hydrocodone/Apap 5/325MG PO (13:19)
--- NOTE | 2022-02-03 18:50 | NUR ---
HORTICULTURAL TECHNICAL OFFICER NOTES PATIENT WAS SEEN BY DR. PADGETT AND ORDERED PATIENT FOR DISCHARGE. PATIENT IS FOR DISCHARGE TO SNF FOR IV ANTIBIOTIC TREATMENT FOR 12 DAYS. DISCHARGE INSTRUCTIONS PROVIDED. PATIENT VERBALIZED UNDERSTANDING. REPORTS GIVEN TO EMMA FLORENTINO FROM [facility]. WITH ABAD CATHETER IN PLACED DRAINING TEA COLORED URINE AND WITH IV ACCESS AT THE RIGHT UPPER ARM MIDLINE PATENT AND INTACT FOR IV ANTIBIOTIC MEDS. PICKED UP BY AMBULANCE PERSONNEL IN STABLE CONDITION. MD AND CHARGE NURSE ARE AWARE OF THE DISCHARGE.
== END 2022-02-03 19:30 | DRG 853 ==
LOC: ER 18:15 → MED 21:36 → TELE 01-06 00:37 → MED 01-09 09:29
PROVIDERS: ADMIT Internal Medicine; ATTEND Student in an Organized Health Care Education/Training Program
PROC: 30233N1 Transfusion of Nonautologous Red Blood Cells into Peripheral Vein, Percutaneous Approach (ICD-10-PCS; principal; 2022-01-06)
PROC: 5A1D70Z Performance of Urinary Filtration, Intermittent, Less than 6 Hours Per Day (ICD-10-PCS; 2022-01-06)
PROC: 07DR3ZX Extraction of Iliac Bone Marrow, Percutaneous Approach, Diagnostic (ICD-10-PCS; 2022-01-12)
PROC: 0VTB0ZZ Resection of Left Testis, Open Approach (ICD-10-PCS; 2022-01-15)
PROC: 05HB33Z Insertion of Infusion Device into Right Basilic Vein, Percutaneous Approach (ICD-10-PCS; 2022-02-03)
DX: A41.50 Gram-negative sepsis, unspecified (principal); I21.4 Non-ST elevation (NSTEMI) myocardial infarction; N18.6 End stage renal disease; S42.291A Other displaced fracture of upper end of right humerus, initial encounter for closed fracture; I13.2 Hypertensive heart and chronic kidney disease with heart failure and with stage 5 chronic kidney disease, or end stage renal disease; I50.22 Chronic systolic (congestive) heart failure; J90 Pleural effusion, not elsewhere classified; N39.0 Urinary tract infection, site not specified; D68.59 Other primary thrombophilia; E44.1 Mild protein-calorie malnutrition; E87.1 Hypo-osmolality and hyponatremia; J98.11 Atelectasis; D68.9 Coagulation defect, unspecified; Z16.12 Extended spectrum beta lactamase (ESBL) resistance; C93.10 Chronic myelomonocytic leukemia not having achieved remission; Z99.2 Dependence on renal dialysis; Z66 Do not resuscitate; Z20.822 Contact with and (suspected) exposure to COVID-19; E78.5 Hyperlipidemia, unspecified; E11.22 Type 2 diabetes mellitus with diabetic chronic kidney disease; W01.0XXA Fall on same level from slipping, tripping and stumbling without subsequent striking against object, initial encounter; Y92.002 Bathroom of unspecified non-institutional (private) residence as the place of occurrence of the external cause; I25.10 Atherosclerotic heart disease of native coronary artery without angina pectoris; Z95.1 Presence of aortocoronary bypass graft; E11.65 Type 2 diabetes mellitus with hyperglycemia; E11.42 Type 2 diabetes mellitus with diabetic polyneuropathy; Z89.422 Acquired absence of other left toe(s); Z91.19 Patient's noncompliance with other medical treatment and regimen; H54.7 Unspecified visual loss; B96.20 Unspecified Escherichia coli [E. coli] as the cause of diseases classified elsewhere; R74.01 Elevation of levels of liver transaminase levels; D63.1 Anemia in chronic kidney disease; Z74.09 Other reduced mobility; D69.6 Thrombocytopenia, unspecified; E83.39 Other disorders of phosphorus metabolism; E88.09 Other disorders of plasma-protein metabolism, not elsewhere classified; Z79.02 Long term (current) use of antithrombotics/antiplatelets; Z79.899 Other long term (current) drug therapy; D17.6 Benign lipomatous neoplasm of spermatic cord; I35.0 Nonrheumatic aortic (valve) stenosis; K57.30 Diverticulosis of large intestine without perforation or abscess without bleeding; L72.3 Sebaceous cyst; N43.3 Hydrocele, unspecified; N50.3 Cyst of epididymis
CPT/HCPCS: 36415; 71045-TC; 73030-TC; 73200-TC; 74178; 75574; 76700-TC; 76870-TC; 80048-TC; 80053-TC; 80076-TC; 80202-TC; 81001; 82105; 82607-TC; 82728-TC; 82784; 82962-TC; 83540-TC; 83615-TC; 83735-TC; 84100-TC; 84153-TC; 84155; 84165; 84439-TC; 84443-TC; 84484-TC; 84702-TC; 85025-TC; 85027-TC; 85385-TC; 85396; 85610-TC; 85730-TC; 86225; 86235; 86334; 86431-TC; 86704; 86706; 86803; 86850-TC; 87040-TC; 87081-TC; 87086-TC; 87186-TC; 87340; 87806; 90935-TC; 93307-TC; 93971-TC; 94799-TC; 97110-TC; 97112-TC; 97530-TC; A4216; A4565; A4649; A6253; A6402; A6403; C1751; C9803; G0378; J0690; J0692; J1170; J1200; J1644; J1650; J1815; J2185; J2250; J2270; J2405; J2704; J2765; J3010; J3370; J3490; J7030; J7040; J7050; J7060; P9016; P9047; Q9967